=== PATIENT | male | born 1960 | race Caucasian/White ===

== ENCOUNTER 2017-08-18 01:10 | Emergency (ER) | payer SELFPAY ==
--- NOTE | 2017-08-18 02:19 | RADIOLOGY REPORT (SQ) ---
EXAM DESCRIPTION: CHEST PA/LAT CLINICAL HISTORY: flu, cough not improving COMPARISON: None. FINDINGS: Frontal and lateral views of the chest. The cardiomediastinal silhouette has normal size and contour. No consolidation, pneumothorax, or pleural effusion. Hyperinflation. Leads overlie the chest. No acute osseous abnormalities. Minimal degenerative change of the spine. Upper abdominal soft tissues are unremarkable. IMPRESSION: 1. No acute pulmonary process identified. Obstructive lung disease.
[2017-08-18] MEDS ORDERED: AZITHROMYCIN 250 MG TABLET PO ONE (02:26)
[2017-08-18] MEDS ORDERED: ACETAMINOPHEN WITH CODEINE 120-12 MG/5 ML UDCUP PO ONE (02:26)
[2017-08-18] MEDS ORDERED: IPRATROPIUM/ALBUTEROL 0.5-2.5 MG/3 ML AMPUL NEB ONE (02:27)
[2017-08-18] MEDS ORDERED: ALBUTEROL SULFATE 0.083% NEB 2.5 MG/3 ML AMPUL NEB ONE (03:12)
--- NOTE | 2017-08-18 05:08 | ER Document Report ---
ED Flu Like - General Chief Complaint: Flu Symptoms Stated Complaint: BREATHING DIFFICULTY Time Seen by Provider: 08/18/17 01:27 Mode of Arrival: Ambulatory Information source: Patient, Relative Notes: Patient is a 56-year-old male with COPD who presents to the ER today for productive cough, body aches, chills, hot flashes, wheezing 4 days. Patient was seen by his primary care provider 3 days ago, diagnosed with flu and given Tamiflu, Tessalon Perles and Promethazine DM. Patient states that since being given this medication he feels like he is only gotten worse. He denies any vomiting or diarrhea. He denies any shortness of breath. He does not have any inhalers as he has not been formally diagnosed with COPD, but does use his ' s nebulizer machine and albuterol. TRAVEL OUTSIDE OF THE [place] IN LAST 30 DAYS: No Past Medical History - General Information source: Patient - Social History Smoking Status: Current Every Day Smoker Chew tobacco use (# tins/day): No Frequency of alcohol use: Heavy Drug Abuse: None Family History: Reviewed & Not Pertinent Patient has suicidal ideation: No Patient has homicidal ideation: No Renal/ Medical History: Denies: Hx Peritoneal Dialysis Review of Systems - Review of Systems Constitutional: See HPI EENT: See HPI Cardiovascular: No symptoms reported Respiratory: See HPI Gastrointestinal: No symptoms reported Genitourinary: No symptoms reported Male Genitourinary: No symptoms reported Musculoskeletal: No symptoms reported Skin: No symptoms reported Hematologic/Lymphatic: No symptoms reported Neurological/Psychological: No symptoms reported Physical Exam - Vital signs Vitals: Temp Pulse Resp BP Pulse Ox 99.3 F 91 16 147/77 H 94 08/18/17 01:19 08/18/17 01:19 08/18/17 01:19 08/18/17 01:19 08/18/17 01:19 - Notes Notes: PHYSICAL EXAMINATION: GENERAL: Mildly ill-appearing, but in no acute distress. HEAD: Atraumatic, normocephalic. EYES: Pupils equal round and reactive to light, extraocular movements intact, sclera anicteric, conjunctiva are normal. ENT: ear canals without erythema or foreign body, TMs pearly cunningham with good bony landmarks, nares patent, oropharynx clear without exudates. Moist mucous membranes. Airway patent NECK: Normal range of motion, supple without lymphadenopathy LUNGS: Productive cough, moderate wheezes in all lobes, no rales or rhonchi. HEART: Regular rate and rhythm without murmurs ABDOMEN: Soft, no tenderness. No guarding, no rebound BACK: no vertebral tenderness, normal ROM GI/: no CVA tenderness EXTREMITIES: Normal range of motion, no pitting edema. No cyanosis. NEUROLOGICAL: Cranial nerves grossly intact. Normal sensory/motor exams. PSYCH: Normal mood, normal affect. SKIN: Warm, Dry, normal turgor, no rashes or lesions noted Course - Re-evaluation Re-evalutation: 08/18/17 05:49 Patient was given DuoNeb and albuterol breathing treatments which made him tachycardic. Tachycardia did resolve approximately 30 minutes after breathing treatments finished. Chest x-ray reports COPD but no acute pathology. Due to comorbidity of COPD I will treat with azithromycin, he did much better with Tylenol with codeine cough medication here in the emergency department. I will also place him on steroids for the wheezing and provide with albuterol for the nebulizer machine that they have at home. - Vital Signs Vital signs: Temp Pulse Resp BP Pulse Ox 99.3 F 91 20 125/71 90 L 08/18/17 01:19 08/18/17 01:19 08/18/17 05:19 08/18/17 05:19 08/18/17 05:19 Discharge - Discharge Clinical Impression: Flu-like symptoms COPD (chronic obstructive pulmonary disease) Qualifiers: COPD type: unspecified COPD Qualified Code(s): J44.9 - Chronic obstructive pulmonary disease, unspecified Condition: Stable Disposition: HOME, SELF-CARE Additional Instructions: Return immediately for any new or worsening symptoms. Follow up with primary care provider, call tomorrow to make followup appointment. Prescriptions: Acetaminophen with Codeine [Tylenol with Codeine 120 mg-12 mg/5 ml] 5 ml PO Q4HP PRN #120 ml PRN Reason: Albuterol Sulfate [Ventolin 0.083% Neb 2.5 mg/3 mL Ampul] 1 vial NEB Q4 #25 vial Azithromycin [Zithromax 250 mg Tablet] 250 mg PO ASDIR PRN #6 tablet PRN Reason: Prednisone 60 mg PO DAILY #15 tablet Referrals: ZULEMA ROWE NP [Primary Care Provider] - Follow up as needed
[2017-08-18 05:23] VITALS: BP 125/71
== END 2017-08-18 05:22 | disposition home or self-care (01) ==
LOC: ER 01:10
DX: J11.1 Influenza due to unidentified influenza virus with other respiratory manifestations (principal); J44.9 Chronic obstructive pulmonary disease, unspecified; R05 Cough; R68.83 Chills (without fever); F17.200 Nicotine dependence, unspecified, uncomplicated
CPT/HCPCS: 94640 ×2; 99283; 71046; J3490; J7620

== ENCOUNTER 2017-11-03 16:21 | Inpatient (IN) | payer OTHER ==
[2017-11-03] MEDS ORDERED: ONDANSETRON HCL INJ/PF 4 MG/2 ML SDV IV ONE (17:34)
--- NOTE | 2017-11-03 17:39 | ER Document Report ---
ED Medical Screen (RME) - General Chief Complaint: Abdominal Pain Stated Complaint: ABDOMINAL PAIN Time Seen by Provider: 11/03/17 17:26 TRAVEL OUTSIDE OF THE [place] IN LAST 30 DAYS: No - HPI Notes: 11/03/17 17:34 Patient is a 57-year-old male with a history of hypertension, COPD who presents to the ED complaining of mid abdominal pain that radiates across his abdomen 1 week. Patient states that the pain has been constant and is a 6 out of 10. He states that the pain is like a "knot." He has not noticed any radiation of his pain. Patient states that he did have one episode of vomiting previously, but has persistent nausea. He still able to tolerate p.o., but does have a decreased p.o. intake. He is still urinating normally and having normal bowel movements. Patient has never had an endoscopy or colonoscopy performed in the past. Patient does continue to smoke and he drinks about 1 case of beer per week. Denies any drug allergies. No hematochezia, melena, or hematemesis. No other concerns or complaints at this time. He was sent to the emergency department by the [facility] for a workup to further evaluate for possible ulcer , pancreatitis, or other etiology. No documented weight loss per patient, but he 'feels' as though he may be losing some weight. Denies any headache, fever, neck pain, URI, sore throat, chest pain, palpitations, syncope, cough, shortness of breath, wheeze, dyspnea, diarrhea, urinary retention, dysuria, hematuria, back pain, loss of control of bowel or bladder, numbness/tingling, saddle anesthesia, muscle paralysis/weakness, or rash. I have treated and performed a rapid initial assessment of this patient. A comprehensive ED assessment and evaluation of the patient, analysis of test results and completion of medical decision making process will be conducted by additional ED providers. PHYSICAL EXAMINATION: GENERAL: Well-appearing, well-nourished and in no acute distress. A&Ox4. Answers questions appropriately. LUNGS: Breath sounds clear to auscultation bilaterally and equal. No wheezes rales or rhonchi. HEART: Regular rate and rhythm without murmurs, rubs, gallops. ABDOMEN: Soft, nondistended abdomen. No guarding, no rebound. No masses appreciated. Normal bowel sounds present. No CVA tenderness bilaterally. ( cannot elicit thorough abd exam w/o table) Extremities: No cyanosis, clubbing, or edema b/l. NEUROLOGICAL: Normal speech, normal gait. PSYCH: Normal mood, normal affect. - Related Data Allergies/Adverse Reactions: No Known Allergies Allergy (Verified 11/03/17 16:23) Past Medical History Renal/ Medical History: Denies: Hx Peritoneal Dialysis Physical Exam - Vital signs Vitals: Temp Pulse Resp BP Pulse Ox 98.1 F 70 16 147/78 H 98 11/03/17 16:43 11/03/17 16:43 11/03/17 16:43 11/03/17 16:43 11/03/17 16:43 Course - Vital Signs Vital signs: Temp Pulse Resp BP Pulse Ox 98.1 F 70 16 147/78 H 98 11/03/17 16:43 11/03/17 16:43 11/03/17 16:43 11/03/17 16:43 11/03/17 16:43 Doctor's Discharge - Discharge Referrals: ZULEMA ROWE NP [Primary Care Provider] - Follow up as needed
--- NOTE | 2017-11-03 18:09 | RADIOLOGY REPORT (SQ) ---
EXAM DESCRIPTION: CHEST SINGLE VIEW COMPLETED DATE/TIME: 11/03/2017 6:00 pm REASON FOR STUDY: abd/epigastric pain COMPARISON: 08/18/2017 EXAM PARAMETERS: NUMBER OF VIEWS: One view. TECHNIQUE: Single frontal radiographic view of the chest acquired. RADIATION DOSE: NA LIMITATIONS: None. FINDINGS: LUNGS AND PLEURA: The lungs are hyperexpanded. There is no infiltrate or effusion. There is no mass. MEDIASTINUM AND HILAR STRUCTURES: No masses. Contour normal. HEART AND VASCULAR STRUCTURES: Heart normal in size. Normal vasculature. BONES: No acute findings. HARDWARE: None in the chest. OTHER: No other significant finding. IMPRESSION: Chronic lung changes with no acute cardiopulmonary disease. TECHNICAL DOCUMENTATION: JOB ID: [id number] [employer]- All Rights Reserved Reading location - IP/workstation name: [email or web address]
[2017-11-03 18:12] LABS: APPEARANCE,URINE CLEAR; BILIRUBIN,URINE NEGATIVE (NEGATIVE); COLOR,URINE YELLOW; GLUCOSE, URINE NEGATIVE (NEGATIVE); KETONES,URINE TRACE mg/dL (NEGATIVE); LEUKOCYTE ESTERASE,URINE NEGATIVE (NEGATIVE); NITRITE,URINE NEGATIVE (NEGATIVE); PROTEIN,URINE NEGATIVE (NEGATIVE); URINE SPECIFIC GRAVITY 1.009; UROBILINOGEN,URINE NEGATIVE mg/dL (<2.0)
[2017-11-03] MEDS: NORMAL SALINE 1000 ML 1,000 ML IV PRN ×2 (19:12→20:10)
[2017-11-03] MEDS ORDERED: MORPHINE SULFATE 10 MG/ML INJ IV ONE (19:20)
--- NOTE | 2017-11-03 19:21 | ER Document Report ---
ED GI/ - General Chief Complaint: Abdominal Pain Stated Complaint: ABDOMINAL PAIN Time Seen by Provider: 11/03/17 17:26 Notes: Patient is a 57 year old male that comes to the ED for chief complaint of pain in his upper abdomen. He states the pain is worse on the left but does seem to radiate to the right. He states pain is worse when he eats, he vomited once within the past day, he has had normal bowel movements. He denies radiation to the chest or back. He denies history of the same. He smokes, drinks alcohol daily, history a history of hypertension and COPD, denies any surgeries. He goes to the [place] [facility], was sent here from there for evaluation of possible pancreatitis based on his symptoms. He has never had an endoscopy or colonoscopy. TRAVEL OUTSIDE OF THE [place] IN LAST 30 DAYS: No - Related Data Allergies/Adverse Reactions: No Known Allergies Allergy (Verified 11/03/17 16:23) Past Medical History - General Information source: Patient - Social History Smoking Status: Current Every Day Smoker Chew tobacco use (# tins/day): No Frequency of alcohol use: Heavy Drug Abuse: None Lives with: Spouse/Significant other Family History: Reviewed & Not Pertinent Patient has suicidal ideation: No Patient has homicidal ideation: No - Past Medical History Cardiac Medical History: Reports: Hx Hypertension Pulmonary Medical History: Reports: Hx COPD Renal/ Medical History: Denies: Hx Peritoneal Dialysis Surgical Hx: Negative - Immunizations Hx Diphtheria, Pertussis, Tetanus Vaccination: Yes Review of Systems - Review of Systems Constitutional: No symptoms reported EENT: No symptoms reported Cardiovascular: No symptoms reported Respiratory: No symptoms reported Gastrointestinal: See HPI Genitourinary: No symptoms reported Male Genitourinary: No symptoms reported Musculoskeletal: No symptoms reported Skin: No symptoms reported Hematologic/Lymphatic: No symptoms reported Neurological/Psychological: No symptoms reported Physical Exam - Vital signs Vitals: Temp Pulse Resp BP Pulse Ox 98.1 F 70 16 147/78 H 98 11/03/17 16:43 11/03/17 16:43 11/03/17 16:43 11/03/17 16:43 11/03/17 16:43 - Notes Notes: GENERAL: Alert, interacts well. Patient does appear mildly uncomfortable HEAD: Normocephalic, atraumatic. EYES: Pupils equal, round, and reactive to light. Extraocular movements intact. ENT: Oral mucosa moist, tongue midline. NECK: Full range of motion. Supple. Trachea midline. LUNGS: Clear to auscultation bilaterally, no wheezes, rales, or rhonchi. No respiratory distress. HEART: Regular rate and rhythm. No murmur ABDOMEN: Tenderness in the epigastric and upper abdomen areas generally, lower abdomen is unremarkable, no distention, bowel sounds present in all 4 quadrants EXTREMITIES: Moves all 4 extremities spontaneously. No edema, normal radial and dorsalis pedis pulses bilaterally. No cyanosis. BACK: no cervical, thoracic, lumbar midline tenderness. No saddle anesthesia, normal distal neurovascular exam. NEUROLOGICAL: Alert and oriented x3. Normal speech. [cranial nerves II through XII grossly intact]. PSYCH: Normal affect, normal mood. SKIN: Warm, dry, normal turgor. No rashes or lesions noted. Remington skin. Course - Re-evaluation Re-evalutation: Patient with epigastric tenderness, history of heavy alcohol use, suspect pancreatitis. He does appear comfortable, he will be medicated. On reevaluation he was still uncomfortable and had to be medicated additionally, after this he became well-appearing and relaxed. CBC unremarkable, chemistry generally unremarkable except for hyponatremia, suspect this is related to his alcohol use. Lipase is significantly elevated at greater than 4500. Ultrasound unremarkable with no gallstone abnormalities or signs of duct abnormality. Consistent with alcohol related pancreatitis. Because of patient's recurring pain, difficulty eating, discussed with patient and significant other, will discuss with hospitalist for potential admission. Discussed with Dr. Grider, internal medicine, patient will be admitted to telemetry. Patient and significant other state understanding and agreement. - Vital Signs Vital signs: Temp Pulse Resp BP Pulse Ox 98.1 F 61 12 142/74 H 94 11/04/17 00:00 11/04/17 02:00 11/04/17 00:00 11/04/17 00:00 11/04/17 00:00 - Laboratory Result Diagrams: 11/03/17 19:13 11/03/17 19:13 Laboratory results interpreted by me: 11/03/17 11/03/17 11/03/17 17:38 19:13 19:13 MCV 98 H MCH 34.6 H Sodium 132.6 L Chloride 91 L Calcium 10.7 H ALT 20 L Total Protein 9.3 H Albumin 5.2 H Lipase 4554.4 H Urine Ketones TRACE H Discharge - Discharge Clinical Impression: Abdominal pain Qualifiers: Abdominal location: epigastric Qualified Code(s): R10.13 - Epigastric pain Vomiting Qualifiers: Vomiting type: unspecified Vomiting Intractability: non-intractable Nausea presence: with nausea Qualified Code(s): R11.2 - Nausea with vomiting, unspecified Pancreatitis Qualifiers: Chronicity: acute Pancreatitis type: alcohol induced Acute pancreatitis complication: unspecified Qualified Code(s): K85.20 - Alcohol induced acute pancreatitis without necrosis or infection Condition: Stable Disposition: ADMITTED INPATIENT Admitting Provider: Hospitalist Unit Admitted: Telemetry
[2017-11-03 19:23] LABS: ABSOLUTE BASOPHILS # (AUTO) 0.1 10^3/uL (0.0-0.2); ABSOLUTE EOSINOPHILS # (AUTO) 0.1 10^3/uL (0.0-0.6); ABSOLUTE LYMPHOCYTES (AUTO) 1.7 10^3/uL (0.5-4.7); ABSOLUTE MONOCYTES (AUTO) 0.8 10^3/uL (0.1-1.4); ABSOLUTE NEUT (AUTO) 6.7 10^3/uL (1.7-8.2); EOSINOPHILS % (AUTO) 1.3 % (0-6); HEMATOCRIT 45.9 % (37.9-51.0); HEMOGLOBIN 16.2 g/dL (13.5-17.0); LYMPHOCYTES % (AUTO) 18.5 % (13-45); MEAN CORPUSCULAR HEMOGLOBIN 34.6 pg (27.0-33.4); MEAN CORPUSCULAR HGB CONC 35.2 g/dL (32.0-36.0); MEAN CORPUSCULAR VOLUME 98 fl (80-97); MONOCYTES % (AUTO) 8.3 % (3-13); PLATELET COUNT 396 10^3/uL (150-450); RED BLOOD COUNT 4.67 10^6/uL (4.35-5.55); RED CELL DISTRIBUTION WIDTH 13.7 % (11.5-14.0); SEGMENTED NEUTROPHILS % (AUTO) 70.9 % (42-78); TOTAL CELLS COUNTED % (AUTO) 100 %; WHITE BLOOD COUNT 9.4 10^3/uL (4.0-10.5)
[2017-11-03 19:33] LABS: ALANINE AMINOTRANSFERASE 20 U/L (21-72); ALBUMIN 5.2 g/dL (3.5-5.0); ALKALINE PHOSPHATASE 81 U/L (38-126); ANION GAP 15 (5-19); ASPARTATE AMINO TRANSFERASE 22 U/L (17-59); BILIRUBIN,DIRECT 0.4 mg/dL (0.0-0.4); BLOOD UREA NITROGEN 7 mg/dL (7-20); CALCIUM 10.7 mg/dL (8.4-10.2); CARBON DIOXIDE 27 mmol/L (22-30); CHLORIDE 91 mmol/L (98-107); GLUCOSE 108 mg/dL (75-110); POTASSIUM 4.8 mmol/L (3.6-5.0); SODIUM 132.6 mmol/L (137-145); TOTAL PROTEIN 9.3 g/dL (6.3-8.2)
[2017-11-03 19:54] LABS: LIPASE 4554.4 U/L (23-300)
[2017-11-03] MEDS ORDERED: HYDROMORPHONE HCL INJ/PF 2 MG/ML AMPULE IV ONE (20:24)
--- NOTE | 2017-11-03 21:36 | RADIOLOGY REPORT (SQ) ---
EXAM DESCRIPTION: U/S ABDOMEN LIMITED W/O DOP COMPLETED DATE/TIME: 11/03/2017 9:10 pm REASON FOR STUDY: upper abd pain, pain with eating, elevated lipase COMPARISON: None. TECHNIQUE: Dynamic and static grayscale images acquired of the abdomen and recorded on PACS. Dicko anna selected color Doppler and spectral images recorded. LIMITATIONS: None. FINDINGS: PANCREAS: No masses. Visualized pancreatic duct normal caliber. LIVER: No masses. Echotexture normal. LIVER VASCULATURE: Normal directional flow of the main portal vein and hepatic veins. GALLBLADDER: No stones. Normal wall thickness. No pericholecystic fluid. ULTRASOUND-DETECTED HERNANDEZ'S SIGN: Negative. INTRAHEPATIC DUCTS AND COMMON DUCT: CBD and intrahepatic ducts normal caliber. No filling defects. INFERIOR VENA CAVA: Normal flow. AORTA: No aneurysm. RIGHT KIDNEY: Normal size. Normal echogenicity. No solid or suspicious masses. No hydronephrosis. No calcifications. PERITONEAL AND RIGHT PLEURAL SPACE: No ascites or effusions. OTHER: No other significant findings. IMPRESSION: No acute inflammatory changes. TECHNICAL DOCUMENTATION: JOB ID: [id number] [place]-72 2010 [employer]- All Rights Reserved Reading location - IP/workstation name: [email or web address]
[2017-11-03] MEDS ORDERED: THIAMINE HCL 100 MG in NORMAL SALINE 50 ML IV ONE (21:44)
[2017-11-03] MEDS ORDERED: DIAZEPAM INJ 10 MG/2 ML DISP.SYRIN IV SCH (21:45)
[2017-11-03] MEDS ORDERED: ACETAMINOPHEN 325 MG TABLET PO PRN (21:45)
[2017-11-03] MEDS ORDERED: ACETAMINOPHEN 650 MG SUPP.RECT PR PRN (21:45)
[2017-11-03] MEDS ORDERED: MAG HYDROX/AL HYDROX/SIMETH SUSP 30 ML UDCUP PO PRN (21:45)
[2017-11-03] MEDS ORDERED: IPRATROPIUM/ALBUTEROL 0.5-2.5 MG/3 ML AMPUL NEB PRN (21:45)
[2017-11-03] MEDS ORDERED: HYDRALAZINE HCL INJ/PF 20 MG/1 ML SDV IV PRN (21:48)
[2017-11-03] MEDS ORDERED: FOLIC ACID INJ 5 MG/1 ML 10 ML VIAL IV PRN (22:07)
[2017-11-03] MEDS ORDERED: THIAMINE HCL INJ 200 MG/2 ML VIAL IV PRN (22:07)
[2017-11-03 22:48] LABS: URINE AMPHETAMINES SCREEN NEGATIVE; URINE BARBITURATES SCREEN NEGATIVE; URINE BENZODIAZEPINES SCREEN NEGATIVE; URINE COCAINE SCREEN NEGATIVE; URINE MARIJUANA (THC) SCREEN UNCONFIRMED POSITIVE; URINE METHADONE SCREEN NEGATIVE; URINE PHENCYCLIDINE SCREEN NEGATIVE
[2017-11-03] MEDS: NORMAL SALINE 1000 ML 1,000 ML IV SCH (22:48)
[2017-11-03] MEDS: HEPARIN SOD (PORCINE) 5,000 UNIT/ML 1 ML SYRINGE SUBCUT SCH (22:48)
[2017-11-04] MEDS: KETOROLAC TROMETHAMINE INJ/PF 30 MG/1 ML SDV IV PRN ×3 (04:28→18:50)
[2017-11-04] MEDS: LORAZEPAM INJ 2 MG/1 ML VIAL IV PRN (04:29)
--- NOTE | 2017-11-04 04:49 | PDOC H&P ---
History of Present Illness Admission Date/PCP: 11/03/17 21:55 Patient complains of: Abdominal pain and nausea History of Present Illness: CLAUDIO LEOS is a 57 year old male with history of hypertension, COPD, Tobacco and alcohol dependence. Patient presents with 3 days of worsening epigastric pain. Exacerbated by p.o. intake and alcohol prompting him to seek evaluation emergency room where he is found to have a lipase of 4500. He receives symptomatic management, IV fluids and referred to the hospitalist for admission. Patient denies new medication, previous episode or exceptional alcohol binging. Past Medical History Cardiac Medical History: Reports: Hypertension Pulmonary Medical History: Reports: Chronic Obstructive Pulmonary Disease (COPD) Social History Information Source: Patient Lives with: Spouse/Significant other Smoking Status: Current Every Day Smoker Cigarettes Packs Per Day: 1 Number of Years Smokin Last Time Smoked: 11/03/17 Frequency of Alcohol Use: Heavy Hx Recreational Drug Use: No Drugs: Marijuana Hx Prescription Drug Abuse: No - Advance Directive Resuscitation Status: Full Code Family History Family History: COPD Parental Family History Reviewed: Yes Children Family History Reviewed: Yes Sibling(s) Family History Reviewed.: Yes Medication/Allergy Home Medications: Acetaminophen with Codeine [Tylenol with Codeine 120 mg-12 mg/5 ml] 5 ml PO Q4HP PRN #120 ml 08/18/17 Albuterol Sulfate [Ventolin 0.083% Neb 2.5 mg/3 mL Ampul] 1 vial NEB Q4 #25 vial 08/18/17 Azithromycin [Zithromax 250 mg Tablet] 250 mg PO ASDIR PRN #6 tablet 08/18/17 Prednisone 60 mg PO DAILY #15 tablet 08/18/17 Allergies/Adverse Reactions: No Known Allergies Allergy (Verified 11/03/17 16:23) Review of Systems Constitutional: ABSENT: chills, fever(s), headache(s), weight gain, weight loss Eyes: ABSENT: visual disturbances Ears: ABSENT: hearing changes Cardiovascular: ABSENT: chest pain, dyspnea on exertion, edema, orthropnea, palpitations Respiratory: ABSENT: cough, hemoptysis Gastrointestinal: ABSENT: abdominal pain, constipation, diarrhea, hematemesis, hematochezia, nausea, vomiting Genitourinary: ABSENT: dysuria, hematuria Musculoskeletal: ABSENT: joint swelling Integumentary: ABSENT: rash, wounds Neurological: ABSENT: abnormal gait, abnormal speech, confusion, dizziness, focal weakness, syncope Psychiatric: ABSENT: anxiety, depression, homidical ideation, suicidal ideation Endocrine: ABSENT: cold intolerance, heat intolerance, polydipsia, polyuria Hematologic/Lymphatic: ABSENT: easy bleeding, easy bruising Physical Exam Vital Signs: Temp Pulse Resp BP Pulse Ox 98.1 F 61 12 142/74 H 94 11/04/17 00:00 11/04/17 02:00 11/04/17 00:00 11/04/17 00:00 11/04/17 00:00 Intake & Output 11/02/17 11/03/17 11/04/17 11:59 11:59 11:59 Weight 58.1 kg General appearance: PRESENT: cooperative, mild distress, well-developed, well- nourished Head exam: PRESENT: atraumatic, normocephalic Eye exam: PRESENT: conjunctiva pink, EOMI, PERRLA. ABSENT: scleral icterus Ear exam: PRESENT: normal external ear exam Mouth exam: PRESENT: moist, tongue midline Neck exam: ABSENT: carotid bruit, JVD, lymphadenopathy, thyromegaly Respiratory exam: PRESENT: clear to auscultation rosa. ABSENT: rales, rhonchi, wheezes Cardiovascular exam: PRESENT: RRR. ABSENT: diastolic murmur, rubs, systolic murmur Pulses: PRESENT: normal dorsalis pedis pul Vascular exam: PRESENT: normal capillary refill GI/Abdominal exam: PRESENT: hyperactive bowel sounds, normal bowel sounds, soft , tenderness. ABSENT: distended, guarding, mass, organolmegaly, rebound Rectal exam: PRESENT: deferred Extremities exam: PRESENT: full ROM. ABSENT: calf tenderness, clubbing, pedal edema Neurological exam: PRESENT: alert, awake, oriented to person, oriented to place , oriented to time, oriented to situation, CN II-XII grossly intact. ABSENT: motor sensory deficit Psychiatric exam: PRESENT: appropriate affect, normal mood. ABSENT: homicidal ideation, suicidal ideation Skin exam: PRESENT: dry, intact, warm. ABSENT: cyanosis, rash Results Impressions: Chest X-Ray 11/03/17 17:33 IMPRESSION: Chronic lung changes with no acute cardiopulmonary disease. Abdomen Ultrasound 11/03/17 20:20 IMPRESSION: No acute inflammatory changes. Assessment & Plan - Diagnosis (1) Pancreatitis Qualifiers: Chronicity: acute Pancreatitis type: alcohol induced Acute pancreatitis complication: unspecified Qualified Code(s): K85.20 - Alcohol induced acute pancreatitis without necrosis or infection Is this a current diagnosis for this admission?: Yes Plan: Acute alcohol-related pancreatitis, bowel rest, symptomatic management, education (2) Tobacco abuse Is this a current diagnosis for this admission?: Yes Plan: Tobacco Dependence patient received tobacco cessation counseling and offered nicotine replacement options (3) Alcohol dependence Is this a current diagnosis for this admission?: Yes Plan: Denies history of DTs, thiamine and folate, benzodiazepine ordered, education (4) Abdominal pain Qualifiers: Abdominal location: epigastric Qualified Code(s): R10.13 - Epigastric pain Is this a current diagnosis for this admission?: Yes Plan: Symptomatic management secondary to #1 (5) Vomiting Qualifiers: Vomiting type: unspecified Vomiting Intractability: non-intractable Nausea presence: with nausea Qualified Code(s): R11.2 - Nausea with vomiting, unspecified Is this a current diagnosis for this admission?: Yes Plan: Symptomatic management secondary to #1 - Time Time Spent: 30 to 50 Minutes - Inpatient Certification Medical Necessity: Need Close Monitoring Due to Risk of Patient Decompensation
[2017-11-04 05:49] LABS: ALANINE AMINOTRANSFERASE 16 U/L (21-72); ALKALINE PHOSPHATASE 45 U/L (38-126); ANION GAP 7 (5-19); ASPARTATE AMINO TRANSFERASE 16 U/L (17-59); BILIRUBIN,DIRECT 0.3 mg/dL (0.0-0.4); BILIRUBIN,TOTAL 0.7 mg/dL (0.2-1.3); BLOOD UREA NITROGEN 7 mg/dL (7-20); CALCIUM 8.6 mg/dL (8.4-10.2); CARBON DIOXIDE 22 mmol/L (22-30); CHLORIDE 106 mmol/L (98-107); CHOLESTEROL 108.28 mg/dL (0-200); GLUCOSE 86 mg/dL (75-110); POTASSIUM 4.3 mmol/L (3.6-5.0); SODIUM 135.3 mmol/L (137-145); TOTAL PROTEIN 5.9 g/dL (6.3-8.2); TRIGLYCERIDES 65 mg/dL (<150)
[2017-11-04 05:59] LABS: DIRECT LDL 45 mg/dL (<100)
[2017-11-04] MEDS: NORMAL SALINE 1000 ML 1,000 ML IV SCH ×2 (06:03→10:54)
[2017-11-04] MEDS: HEPARIN SOD (PORCINE) 5,000 UNIT/ML 1 ML SYRINGE SUBCUT SCH ×3 (06:03→21:51)
[2017-11-04 06:43] LABS: ABSOLUTE BASOPHILS # (AUTO) 0.1 10^3/uL (0.0-0.2); ABSOLUTE EOSINOPHILS # (AUTO) 0.1 10^3/uL (0.0-0.6); ABSOLUTE LYMPHOCYTES (AUTO) 1.3 10^3/uL (0.5-4.7); ABSOLUTE MONOCYTES (AUTO) 0.6 10^3/uL (0.1-1.4); ABSOLUTE NEUT (AUTO) 4.1 10^3/uL (1.7-8.2); BASOPHILS % (AUTO) 0.9 % (0-2); HEMATOCRIT 35.1 % (37.9-51.0); LYMPHOCYTES % (AUTO) 21.4 % (13-45); MEAN CORPUSCULAR HEMOGLOBIN 34.4 pg (27.0-33.4); MEAN CORPUSCULAR HGB CONC 35.1 g/dL (32.0-36.0); MEAN CORPUSCULAR VOLUME 98 fl (80-97); MONOCYTES % (AUTO) 9.9 % (3-13); PLATELET COUNT 245 10^3/uL (150-450); RED BLOOD COUNT 3.58 10^6/uL (4.35-5.55); RED CELL DISTRIBUTION WIDTH 13.7 % (11.5-14.0); SEGMENTED NEUTROPHILS % (AUTO) 65.8 % (42-78); TOTAL CELLS COUNTED % (AUTO) 100 %; WHITE BLOOD COUNT 6.2 10^3/uL (4.0-10.5)
[2017-11-04 06:51] LABS: HEMOGLOBIN 12.3 g/dL (13.5-17.0)
[2017-11-04] MEDS: DIAZEPAM INJ 10 MG/2 ML DISP.SYRIN IV SCH ×2 (09:34→21:51)
[2017-11-04] MEDS: THIAMINE HCL 100 MG, FOLIC ACID 1 MG in NORMAL SALINE 250 ML IV SCH (09:34)
--- NOTE | 2017-11-04 12:45 | PDOC PROGRESS REPORT ---
Subjective Progress Note for:: 11/04/17 Subjective:: The patient is a 57-year-old male who was admitted overnight with alcoholic pancreatitis. Today when I saw him he states that he is feeling a little better. He states he still has some pain but it is greatly improved since the time of admission. He denies fever or shaking chills. No chest pain , shortness of breath. He does have a little bit of a cough which is chronic for him. He has had no nausea or vomiting. His abdominal pain is improving. He has not had a bowel movement. He has no urinary complaints. Reason For Visit: ETOH WITHDRAW,ACUTE PANCREATITIS Physical Exam Vital Signs: Temp Pulse Resp BP Pulse Ox 98.1 F 74 16 125/78 95 11/04/17 07:57 11/04/17 08:46 11/04/17 08:46 11/04/17 07:57 11/04/17 08:46 Intake & Output 11/03/17 11/04/17 11/05/17 06:59 06:59 06:59 Intake Total 1250 Balance 1250 Weight 58.1 kg General appearance: PRESENT: disheveled, thin, other - Quite ill-appearing Head exam: PRESENT: atraumatic, normocephalic Eye exam: PRESENT: conjunctiva pink, EOMI, PERRLA. ABSENT: scleral icterus Mouth exam: PRESENT: moist, tongue midline Neck exam: ABSENT: carotid bruit, JVD, lymphadenopathy, thyromegaly Respiratory exam: PRESENT: rhonchi. ABSENT: rales, wheezes Cardiovascular exam: PRESENT: RRR. ABSENT: diastolic murmur, rubs, systolic murmur GI/Abdominal exam: PRESENT: normal bowel sounds, soft, other - His abdomen is really nontender to palpation.. ABSENT: distended, guarding, mass, organolmegaly, rebound, tenderness Rectal exam: PRESENT: deferred Extremities exam: PRESENT: full ROM. ABSENT: calf tenderness, clubbing, pedal edema Neurological exam: PRESENT: alert, awake, oriented to person, oriented to place , oriented to time, oriented to situation, CN II-XII grossly intact, other - He has a slight tremor. ABSENT: motor sensory deficit Psychiatric exam: PRESENT: appropriate affect, normal mood. ABSENT: homicidal ideation, suicidal ideation Skin exam: PRESENT: dry, intact, warm. ABSENT: cyanosis, rash Results Laboratory Results: 11/04/17 05:08 11/04/17 05:08 11/04/17 11/04/17 11/04/17 05:08 05:08 05:08 WBC 6.2 RBC 3.58 L Hgb 12.3 L D Hct 35.1 L MCV 98 H MCH 34.4 H MCHC 35.1 RDW 13.7 Plt Count 245 Seg Neutrophils % 65.8 Lymphocytes % 21.4 Monocytes % 9.9 Eosinophils % 2.0 Basophils % 0.9 Absolute Neutrophils 4.1 Absolute Lymphocytes 1.3 Absolute Monocytes 0.6 Absolute Eosinophils 0.1 Absolute Basophils 0.1 Sodium 135.3 L Potassium 4.3 Chloride 106 Carbon Dioxide 22 Anion Gap 7 BUN 7 Creatinine 0.50 L Est GFR ( Amer) > 60 Est GFR (Non-Af Amer) > 60 Glucose 86 Calcium 8.6 Phosphorus 3.7 Total Bilirubin 0.7 AST 16 L ALT 16 L Alkaline Phosphatase 45 Total Protein 5.9 L Albumin 3.0 L Triglycerides 65 Cholesterol 108.28 LDL Cholesterol Direct 45 VLDL Cholesterol 13.0 HDL Cholesterol 54 Impressions: Chest X-Ray 11/03/17 17:33 IMPRESSION: Chronic lung changes with no acute cardiopulmonary disease. Abdomen Ultrasound 11/03/17 20:20 IMPRESSION: No acute inflammatory changes. Assessment & Plan - Diagnosis (1) Acute pancreatitis Is this a current diagnosis for this admission?: Yes Plan: Patient will continue IV fluids. I am going to start him on clear liquids this afternoon and will see how he does. (2) Precipitous drop in hematocrit Is this a current diagnosis for this admission?: Yes Plan: He has had a precipitous drop in hemoglobin likely due to hemodilution. He will have a CBC drawn in the morning. (3) Alcohol dependence, continuous Is this a current diagnosis for this admission?: Yes Plan: I have discussed the patient with the patient the fact that he would likely benefit from not drinking in light of his pancreatitis (4) Alcohol withdrawal Is this a current diagnosis for this admission?: Yes Plan: Continue scheduled Ativan (5) COPD (chronic obstructive pulmonary disease) Is this a current diagnosis for this admission?: Yes Plan: No evidence of acute exacerbation. (6) Hypertension Is this a current diagnosis for this admission?: Yes Plan: Stable (7) Hyponatremia Is this a current diagnosis for this admission?: Yes Plan: Improving. Likely due to his heavy alcohol use (8) Protein calorie malnutrition Is this a current diagnosis for this admission?: Yes Plan: He will continue thiamine. I am going to start him on folic acid and a multivitamin. He is significantly underweight with a BMI of 17. (9) Hypercalcemia Is this a current diagnosis for this admission?: Yes Plan: Likely secondary to dehydration. Resolved (10) Tobacco dependence Is this a current diagnosis for this admission?: Yes Plan: Certainly it would be in his best interest to quit smoking (11) Full code status Is this a current diagnosis for this admission?: Yes - Time Time Spent with patient: 25-34 minutes - Inpatient Certification Medical Necessity: Need For IV Fluids - Inpatient hospitalization remains necessary. The patient has acute pancreatitis. I am going to start him on clear liquids today. He will continue IV fluids for now. He is also going through alcohol withdrawal., Other
[2017-11-04] MEDS ORDERED: FOLIC ACID 1 MG TABLET PO ONE (13:30)
[2017-11-05] MEDS: KETOROLAC TROMETHAMINE INJ/PF 30 MG/1 ML SDV IV PRN ×3 (00:24→06:00)
[2017-11-05] MEDS: LORAZEPAM INJ 2 MG/1 ML VIAL IV PRN ×4 (01:36→22:03)
[2017-11-05] MEDS ORDERED: KETOROLAC TROMETHAMINE INJ/PF 30 MG/1 ML SDV IV ONE (02:00)
[2017-11-05 05:23] LABS: ABSOLUTE BASOPHILS # (AUTO) 0.1 10^3/uL (0.0-0.2); ABSOLUTE EOSINOPHILS # (AUTO) 0.1 10^3/uL (0.0-0.6); ABSOLUTE LYMPHOCYTES (AUTO) 1.3 10^3/uL (0.5-4.7); ABSOLUTE MONOCYTES (AUTO) 0.8 10^3/uL (0.1-1.4); ABSOLUTE NEUT (AUTO) 6.9 10^3/uL (1.7-8.2); EOSINOPHILS % (AUTO) 0.9 % (0-6); HEMATOCRIT 34.6 % (37.9-51.0); LYMPHOCYTES % (AUTO) 13.9 % (13-45); MEAN CORPUSCULAR HEMOGLOBIN 34.1 pg (27.0-33.4); MEAN CORPUSCULAR HGB CONC 34.7 g/dL (32.0-36.0); MEAN CORPUSCULAR VOLUME 98 fl (80-97); MONOCYTES % (AUTO) 8.3 % (3-13); PLATELET COUNT 279 10^3/uL (150-450); RED BLOOD COUNT 3.52 10^6/uL (4.35-5.55); RED CELL DISTRIBUTION WIDTH 13.6 % (11.5-14.0); SEGMENTED NEUTROPHILS % (AUTO) 75.9 % (42-78); TOTAL CELLS COUNTED % (AUTO) 100 %; WHITE BLOOD COUNT 9.1 10^3/uL (4.0-10.5)
[2017-11-05 06:00] LABS: ALANINE AMINOTRANSFERASE 17 U/L (21-72); ALBUMIN 3.3 g/dL (3.5-5.0); ALKALINE PHOSPHATASE 51 U/L (38-126); ANION GAP 11 (5-19); ASPARTATE AMINO TRANSFERASE 17 U/L (17-59); BILIRUBIN,DIRECT 0.4 mg/dL (0.0-0.4); BILIRUBIN,TOTAL 0.5 mg/dL (0.2-1.3); BLOOD UREA NITROGEN 10 mg/dL (7-20); CALCIUM 8.9 mg/dL (8.4-10.2); CARBON DIOXIDE 20 mmol/L (22-30); CHLORIDE 104 mmol/L (98-107); GLUCOSE 90 mg/dL (75-110); LIPASE 1004.5 U/L (23-300); POTASSIUM 4.8 mmol/L (3.6-5.0); SODIUM 135.4 mmol/L (137-145); TOTAL PROTEIN 6.2 g/dL (6.3-8.2)
[2017-11-05] MEDS: HEPARIN SOD (PORCINE) 5,000 UNIT/ML 1 ML SYRINGE SUBCUT SCH ×3 (06:01→22:02)
[2017-11-05] MEDS: THIAMINE HCL 100 MG, FOLIC ACID 1 MG in NORMAL SALINE 250 ML IV SCH (09:36)
[2017-11-05] MEDS: MULTIVITAMIN TABLET PO SCH (09:37)
[2017-11-05] MEDS: FOLIC ACID 1 MG TABLET PO SCH (09:37)
[2017-11-05] MEDS: DIAZEPAM INJ 10 MG/2 ML DISP.SYRIN IV SCH ×2 (09:37→22:03)
[2017-11-05] MEDS ORDERED: LORAZEPAM INJ 2 MG/1 ML VIAL IV ONE (17:13)
[2017-11-05] MEDS ORDERED: LORAZEPAM INJ 2 MG/1 ML VIAL IV PRN (17:14)
--- NOTE | 2017-11-05 17:24 | PDOC PROGRESS REPORT ---
Subjective Progress Note for:: 11/05/17 Subjective:: The patient is a 57-year-old male who was admitted overnight with alcoholic pancreatitis. Yesterday he was doing fairly well and his pain was improving and I started him on clear liquids. Today the patient has begun going through some significant alcohol withdrawal. We are escalating his benzodiazepines this afternoon. I spoke at length to the patient's at the bedside. She is unsure whether he will quit drinking when he gets out of the hospital. However she has been wanting him to quit drinking for quite some time. She states that today he has been quite confused and hallucinating. He has become more tremulous and agitated. Spent quite some time discussing the plan of care with her and for now she would like for him to remain in the hospital and go through alcohol withdrawal in the hopes that he may decide to quit drinking in light of his new diagnosis of pancreatitis. Review of systems cannot be obtained from the patient today due to his ongoing confusion. Reason For Visit: PANCREATITIS,ETOH WITHDRAWL Physical Exam Vital Signs: Temp Pulse Resp BP Pulse Ox 97.3 F 65 16 175/72 H 100 11/05/17 11:16 11/05/17 14:00 11/05/17 11:50 11/05/17 11:16 11/05/17 11:16 Intake & Output 11/04/17 11/05/17 11/06/17 06:59 06:59 06:59 Intake Total 1250 2200 892 Balance 1250 2200 892 Weight 58.1 kg 60.8 kg General appearance: PRESENT: disheveled, thin, other - Chronically ill- appearing gentleman. He is anxious, tremulous and agitated at the time of my visit Mouth exam: PRESENT: moist, tongue midline Respiratory exam: PRESENT: clear to auscultation rosa. ABSENT: rales, rhonchi, wheezes Cardiovascular exam: PRESENT: RRR. ABSENT: diastolic murmur, rubs, systolic murmur GI/Abdominal exam: PRESENT: normal bowel sounds, soft. ABSENT: distended, guarding, mass, organolmegaly, rebound, tenderness Rectal exam: PRESENT: deferred Extremities exam: PRESENT: full ROM. ABSENT: calf tenderness, clubbing, pedal edema Neurological exam: PRESENT: alert, awake, oriented to person, oriented to place. ABSENT: oriented to time, oriented to situation Psychiatric exam: PRESENT: agitated, anxious, other - Quite tremulous Skin exam: PRESENT: dry, intact, warm. ABSENT: cyanosis, rash Results Laboratory Results: 11/05/17 04:17 11/05/17 04:17 11/05/17 11/05/17 04:17 04:17 WBC 9.1 RBC 3.52 L Hgb 12.0 L Hct 34.6 L MCV 98 H MCH 34.1 H MCHC 34.7 RDW 13.6 Plt Count 279 Seg Neutrophils % 75.9 Lymphocytes % 13.9 Monocytes % 8.3 Eosinophils % 0.9 Basophils % 1.0 Absolute Neutrophils 6.9 Absolute Lymphocytes 1.3 Absolute Monocytes 0.8 Absolute Eosinophils 0.1 Absolute Basophils 0.1 Sodium 135.4 L Potassium 4.8 Chloride 104 Carbon Dioxide 20 L Anion Gap 11 BUN 10 Creatinine 0.51 L Est GFR ( Amer) > 60 Est GFR (Non-Af Amer) > 60 Glucose 90 Calcium 8.9 Magnesium 1.7 Total Bilirubin 0.5 AST 17 ALT 17 L Alkaline Phosphatase 51 Total Protein 6.2 L Albumin 3.3 L Lipase 1004.5 H Impressions: Chest X-Ray 11/03/17 17:33 IMPRESSION: Chronic lung changes with no acute cardiopulmonary disease. Abdomen Ultrasound 11/03/17 20:20 IMPRESSION: No acute inflammatory changes. Assessment & Plan - Diagnosis (1) Acute pancreatitis Is this a current diagnosis for this admission?: Yes Plan: For now he will continue clear liquids. The patient's states that he developed some abdominal pain after he drank some this morning. Continue IV fluids. (2) Precipitous drop in hematocrit Is this a current diagnosis for this admission?: Yes Plan: Secondary to hemodilution. Stable. (3) Alcohol withdrawal Is this a current diagnosis for this admission?: Yes Plan: Continue scheduled Ativan. I am adding clonidine to his regimen as his blood pressure is somewhat high. He has as needed Ativan available as well. (4) Alcohol dependence, continuous Is this a current diagnosis for this admission?: Yes Plan: At this point it is unclear whether the patient wants to quit drinking. However in light of his pancreatitis and the fact that he really is not tolerating p.o. intake he needs to stay here in the hospital and will be detoxed. (5) COPD (chronic obstructive pulmonary disease) Is this a current diagnosis for this admission?: Yes Plan: No evidence of acute exacerbation. (6) Hypertension Is this a current diagnosis for this admission?: Yes Plan: I am adding clonidine to his regimen today. (7) Hyponatremia Is this a current diagnosis for this admission?: Yes Plan: Improving (8) Protein calorie malnutrition Is this a current diagnosis for this admission?: Yes Plan: The patient has a BMI of 18. He is profoundly malnourished. He is on thiamine and folic acid. He also has been started on multivitamin. (9) Hypercalcemia Is this a current diagnosis for this admission?: Yes Plan: Resolved. Secondary to dehydration. (10) Tobacco dependence Is this a current diagnosis for this admission?: Yes Plan: Certainly it would be in his best interest to quit smoking. Will add a nicotine patch. (11) Full code status Is this a current diagnosis for this admission?: Yes - Time Time Spent with patient: 25-34 minutes - Inpatient Certification Medical Necessity: Need For IV Fluids, Other - Inpatient hospitalization remains necessary. The patient requiring parenteral fluids. He is currently going through alcohol withdrawal and is requiring IV Ativan. Timing of disposition will be determined by his clinical course
[2017-11-05] MEDS: CLONIDINE HCL 0.1 MG TABLET PO SCH (19:44)
[2017-11-05] MEDS: NICOTINE 21 MG/24 HR PATCH.TD24 TD SCH (19:44)
[2017-11-06] MEDS: CLONIDINE HCL 0.1 MG TABLET PO SCH ×3 (02:53→17:56)
[2017-11-06] MEDS: HEPARIN SOD (PORCINE) 5,000 UNIT/ML 1 ML SYRINGE SUBCUT SCH ×3 (05:46→22:03)
[2017-11-06] MEDS: DIAZEPAM INJ 10 MG/2 ML DISP.SYRIN IV SCH ×2 (09:59→22:03)
[2017-11-06] MEDS: MULTIVITAMIN TABLET PO SCH (10:39)
[2017-11-06] MEDS: FOLIC ACID 1 MG TABLET PO SCH (10:39)
--- NOTE | 2017-11-06 12:03 | PDOC PROGRESS REPORT ---
Subjective Progress Note for:: 11/06/17 Subjective:: Patient is seen resting in bed. He is awake, alert and oriented 3. He is somewhat slow to respond to questions. He is not tremulous at the present time. His is at the bedside. He denies any chest pain, shortness of breath or dyspnea. He denies any nausea, abdominal pain or diarrhea. He states he is hungry. He denies any significant arthralgias or myalgias. Remaining review of systems are negative. Reason For Visit: PANCREATITIS,ETOH WITHDRAWL Physical Exam Vital Signs: Temp Pulse Resp BP Pulse Ox 97.4 F 86 16 139/72 H 100 11/06/17 07:31 11/06/17 09:18 11/06/17 09:18 11/06/17 07:31 11/06/17 09:18 Intake & Output 11/05/17 11/06/17 11/07/17 06:59 06:59 06:59 Intake Total 2200 3614 Balance 2200 3614 Weight 60.8 kg 61.5 kg General appearance: PRESENT: no acute distress, disheveled, thin, well-developed Head exam: PRESENT: atraumatic, normocephalic Eye exam: PRESENT: conjunctiva pink, EOMI, PERRLA. ABSENT: scleral icterus Ear exam: PRESENT: normal external ear exam Mouth exam: PRESENT: moist, tongue midline Teeth exam: PRESENT: poor dentation Neck exam: ABSENT: carotid bruit, JVD, lymphadenopathy, thyromegaly Respiratory exam: PRESENT: clear to auscultation rosa. ABSENT: rales, rhonchi, wheezes Cardiovascular exam: PRESENT: RRR. ABSENT: diastolic murmur, rubs, systolic murmur Pulses: PRESENT: normal dorsalis pedis pul Vascular exam: PRESENT: normal capillary refill GI/Abdominal exam: PRESENT: normal bowel sounds, soft. ABSENT: distended, guarding, mass, organolmegaly, rebound, tenderness Rectal exam: PRESENT: deferred Musculoskeletal exam: PRESENT: ambulatory, full ROM, normal inspection Neurological exam: PRESENT: alert, awake, oriented to person, oriented to place , oriented to time, oriented to situation, CN II-XII grossly intact. ABSENT: motor sensory deficit Psychiatric exam: PRESENT: flat affect Skin exam: PRESENT: dry, intact, warm. ABSENT: cyanosis, rash Results Laboratory Results: 11/05/17 04:17 11/05/17 04:17 Impressions: Chest X-Ray 11/03/17 17:33 IMPRESSION: Chronic lung changes with no acute cardiopulmonary disease. Abdomen Ultrasound 11/03/17 20:20 IMPRESSION: No acute inflammatory changes. Assessment & Plan - Diagnosis (1) Acute pancreatitis Qualifiers: Pancreatitis type: alcohol induced Is this a current diagnosis for this admission?: Yes Plan: Lipase down to 1000. He has not had IV fluids since last night. He has had no nausea or abdominal pain. (2) Alcohol dependence, continuous Is this a current diagnosis for this admission?: Yes Plan: Continue Valium scheduled doses. Continue folic acid and thiamine and multivitamin. He is far less tremulous today. (3) Alcohol withdrawal Is this a current diagnosis for this admission?: Yes (4) COPD (chronic obstructive pulmonary disease) Is this a current diagnosis for this admission?: Yes (5) Hypertension Qualifiers: Hypertension type: essential hypertension Qualified Code(s): I10 - Essential (primary) hypertension Is this a current diagnosis for this admission?: Yes Plan: Presently he is normotensive and no longer tachycardic. Continue current medications (6) Hyponatremia Is this a current diagnosis for this admission?: Yes (7) Protein-calorie malnutrition, moderate Is this a current diagnosis for this admission?: Yes Plan: We will change diet to regular continue nutritional supplements. - Time Time Spent with patient: 25-34 minutes Total Critical Time (Minutes): 20 Medications reviewed and adjusted accordingly: Yes Anticipated discharge: Acute Rehab
[2017-11-06] MEDS: LORAZEPAM INJ 2 MG/1 ML VIAL IV PRN (17:56)
[2017-11-06] MEDS: NICOTINE 21 MG/24 HR PATCH.TD24 TD SCH (17:56)
[2017-11-07] MEDS: CLONIDINE HCL 0.1 MG TABLET PO SCH ×2 (04:04→10:38)
[2017-11-07 05:27] LABS: ANION GAP 10 (5-19); BLOOD UREA NITROGEN 5 mg/dL (7-20); CALCIUM 8.6 mg/dL (8.4-10.2); CARBON DIOXIDE 24 mmol/L (22-30); CHLORIDE 99 mmol/L (98-107); GLUCOSE 93 mg/dL (75-110); POTASSIUM 3.5 mmol/L (3.6-5.0); SODIUM 132.8 mmol/L (137-145)
[2017-11-07] MEDS: HEPARIN SOD (PORCINE) 5,000 UNIT/ML 1 ML SYRINGE SUBCUT SCH (05:38)
[2017-11-07] MEDS: MULTIVITAMIN TABLET PO SCH (10:38)
[2017-11-07] MEDS: DIAZEPAM INJ 10 MG/2 ML DISP.SYRIN IV SCH (10:38)
[2017-11-07] MEDS: FOLIC ACID 1 MG TABLET PO SCH (10:38)
[2017-11-07] MEDS ORDERED: POTASSIUM CHLORIDE 10 MEQ TABLET.SA PO ONE (10:40)
--- NOTE | 2017-11-07 11:36 | PDOC DISCHARGE SUMMARY ---
General - Admit/Disc Date/PCP Admission Date/Primary Care Provider: 11/03/17 21:55 Discharge Date: 11/07/17 - Discharge Diagnosis (1) Acute pancreatitis Is this a current diagnosis for this admission?: Yes (2) Alcohol dependence, continuous Is this a current diagnosis for this admission?: Yes (3) Alcohol withdrawal Is this a current diagnosis for this admission?: Yes (4) COPD (chronic obstructive pulmonary disease) Is this a current diagnosis for this admission?: Yes (5) Hypertension Is this a current diagnosis for this admission?: Yes (6) Hyponatremia Is this a current diagnosis for this admission?: Yes (7) Protein-calorie malnutrition, moderate Is this a current diagnosis for this admission?: Yes - Additional Information Resuscitation Status: Full Code Home Medications: Acetaminophen with Codeine [Tylenol with Codeine 120 mg-12 mg/5 mL] 5 ml PO Q4HP PRN #120 ml 08/18/17 Albuterol Sulfate [Ventolin 0.083% Neb 2.5 mg/3 mL Ampul] 1 vial NEB Q4 #25 vial 08/18/17 Acetaminophen [Tylenol 325 mg Tablet] 650 mg PO Q4HP PRN tablet 11/07/17 History of Present Illness Patient complains of: Epigastric pain History of Present Illness: CLAUDIO LEOS is a 57 year old male Hospital Course Hospital Course: Patient was admitted to the hospitalist service on telemetry. He was kept n.p.o. and given IV hydration. Was also given IV pain medicine and scheduled IV Ativan to prevent alcohol withdrawals. Despite the scheduled Ativan, patient did start hallucinating and having tremors on hospital day #2. His Ativan dose was increased as well as as needed Ativan added. Over the next 24 hours the symptoms subsided. He refused to have any further IV fluids on day 3. His lipase was down to thousand. We advanced his diet to regular. Today his lipase is 300, he is tolerating a regular diet and he feels ready for discharge. We discussed with patient and his recommendations for inpatient rehab or at the very least alcohol outpatient counseling. Patient states he would like to pursue outpatient counseling. His supports his decision. Physical Exam Vital Signs: Temp Pulse Resp BP Pulse Ox 98.2 F 82 16 131/75 H 92 11/07/17 07:35 11/07/17 07:35 11/07/17 07:35 11/07/17 07:35 11/07/17 07:35 Intake & Output 11/06/17 11/07/17 11/08/17 06:59 06:59 06:59 Intake Total 3614 4 Balance 3612083 Weight 61.5 kg 61.5 kg General appearance: PRESENT: no acute distress, thin, well-developed Head exam: PRESENT: atraumatic, normocephalic Eye exam: PRESENT: conjunctiva pink Ear exam: PRESENT: normal external ear exam Mouth exam: PRESENT: moist, tongue midline Neck exam: ABSENT: carotid bruit, JVD, lymphadenopathy, thyromegaly Respiratory exam: PRESENT: clear to auscultation rosa. ABSENT: rales, rhonchi, wheezes Cardiovascular exam: PRESENT: RRR. ABSENT: diastolic murmur, rubs, systolic murmur Pulses: PRESENT: normal dorsalis pedis pul Vascular exam: PRESENT: normal capillary refill GI/Abdominal exam: PRESENT: normal bowel sounds, soft. ABSENT: distended, guarding, mass, organolmegaly, rebound, tenderness Rectal exam: PRESENT: deferred Extremities exam: PRESENT: full ROM. ABSENT: calf tenderness, clubbing, pedal edema Musculoskeletal exam: PRESENT: ambulatory, full ROM Neurological exam: PRESENT: alert, awake, oriented to person, oriented to place , oriented to time, oriented to situation, CN II-XII grossly intact. ABSENT: motor sensory deficit Psychiatric exam: PRESENT: anxious Skin exam: PRESENT: dry, intact, warm. ABSENT: cyanosis, rash Results Laboratory Results: 11/05/17 04:17 11/07/17 04:30 11/07/17 04:30 Sodium 132.8 L Potassium 3.5 L Chloride 99 Carbon Dioxide 24 Anion Gap 10 BUN 5 L Creatinine 0.52 Est GFR ( Amer) > 60 Est GFR (Non-Af Amer) > 60 Glucose 93 Calcium 8.6 Lipase 319.0 H Impressions: Chest X-Ray 11/03/17 17:33 IMPRESSION: Chronic lung changes with no acute cardiopulmonary disease. Abdomen Ultrasound 11/03/17 20:20 IMPRESSION: No acute inflammatory changes. Qualifiers - * PATIENT BEING DISCHARGED WITH ANY OF THE FOLLOWING DIAGNOSIS: No Plan Discharge Plan: Home with Follow up with primary care provider Avoid alcohol Outpatient alcohol counseling recommended Time Spent: Less than 30 Minutes
[2017-11-07 12:23] VITALS: BP 121/67
== END 2017-11-07 12:00 | disposition home or self-care (01) | DRG 439 ==
LOC: ER 16:21 → INTOOBSV 21:55 → EH 21:55 → OBSVTOIN 21:55 → 4S 11-04 00:35
PROVIDERS: ADMIT Internal Medicine; ATTEND Internal Medicine
PROC: 3E0F73Z Introduction of Anti-inflammatory into Respiratory Tract, Via Natural or Artificial Opening (ICD-10-PCS; principal; 2017-11-04)
DX: K85.20 Alcohol induced acute pancreatitis without necrosis or infection (principal); F10.239 Alcohol dependence with withdrawal, unspecified; E44.0 Moderate protein-calorie malnutrition; Z68.1 Body mass index [BMI] 19.9 or less, adult; R71.0 Precipitous drop in hematocrit; E87.1 Hypo-osmolality and hyponatremia; E83.52 Hypercalcemia; J44.9 Chronic obstructive pulmonary disease, unspecified; I10 Essential (primary) hypertension; F17.210 Nicotine dependence, cigarettes, uncomplicated; Z83.6 Family history of other diseases of the respiratory system
CPT/HCPCS: 36415; 71045; 76705; 80048; 80053; 80061; 80076; 80307; 81001; 83690; 83735; 84100; 85025; 96361; 96374; 96375; 99284; G0378; J0360; J1170; J1644; J1885; J2060; J2270; J3360; J3411; J3490; J7030; J7050

== ENCOUNTER 2018-03-28 01:31 | Inpatient (IN) | payer OTHER ==
[2018-03-28] MEDS ORDERED: NITROGLYCERIN 2% OINTMENT 1 GM PACKET TP ONE (01:48)
--- NOTE | 2018-03-28 01:48 | ER Document Report ---
ED General - General Chief Complaint: Chest Pain Stated Complaint: CHEST AND ABDOMINAL PAIN Time Seen by Provider: 03/28/18 01:39 Notes: Patient is a 57-year-old male who presents with complaint of pain that is in his left upper abdomen into the left side of his chest. Some numbness into the left arm. This pain is constant. Says he has some pain with deep breathing as well but says most the pain is just is constant and not affected by the breathing. No fevers. No vomiting. No diarrhea. He is a chronic alcoholic. He does smoke every day. He denies history of coronary disease. He does not follow with and regular basis. He does not take medications on a daily basis. He says he has had pancreatitis in the past but this feels a little bit different. No other complaints at this time. TRAVEL OUTSIDE OF THE [place] IN LAST 30 DAYS: No - Related Data Allergies/Adverse Reactions: No Known Allergies Allergy (Verified 11/03/17 16:23) Past Medical History - Social History Smoking Status: Current Every Day Smoker Frequency of alcohol use: Heavy Drug Abuse: None Family History: COPD - Past Medical History Cardiac Medical History: Reports: Hx Hypertension Pulmonary Medical History: Reports: Hx COPD Renal/ Medical History: Denies: Hx Peritoneal Dialysis - Immunizations Hx Diphtheria, Pertussis, Tetanus Vaccination: Yes Review of Systems - Review of Systems Notes: My Normal Review Basic REVIEW OF SYSTEMS: CONSTITUTIONAL : Denies fever, chills, or sweats. Denies recent illness. EENT: Denies eye, ear, throat, or mouth pain or symptoms. Denies nasal or sinus congestion. CARDIOVASCULAR: Has chest pain RESPIRATORY: Denies cough, cold, or chest congestion. Denies shortness of breath, difficulty breathing, or wheezing. GASTROINTESTINAL: Some LUQ abdominal pain. Denies nausea, vomiting. GENITOURINARY: Denies difficulty urinating, painful urination, burning, frequency, or blood in urine. MUSCULOSKELETAL: Denies neck or back pain or joint pain or swelling. SKIN: Denies rash or skin lesions. Neuro: Denies sensory or motor loss. ALL OTHER SYSTEMS REVIEWED AND NEGATIVE. Physical Exam - Vital signs Vitals: Resp Pulse Ox 16 100 03/28/18 01:42 03/28/18 01:42 - Notes Notes: General Appearance: Well nourished, alert, cooperative, no acute distress, moderate obvious discomfort. Vitals: reviewed, See vital signs table. Head: no swelling or tenderness to the head Eyes: PERRL, EOMI, Conjuctiva clear Mouth: No decreasd moisture Lungs: No wheezing, No rales, No rhonci, No accessory muscle use, good air exchange bilaterally. Heart: Normal rate, Regular rythm, No murmur, no rub Abdomen: Normal BS, soft, No rigidity, no reproducible abdominal tenderness to palpation at this time., No guarding, no rebound, no abdominal masses, no organomegaly Extremities: strength 5/5 in all extremities, good pulses in all extremities, no swelling or tenderness in the extremities, no edema. Skin: warm, dry, appropriate color, no rash Neuro: speech clear, oriented x 3, normal affect, responds appropriately to questions. Course - Re-evaluation Re-evalutation: 03/28/18 06:18 Nitro had no effect of the patient's pain. He still having significant amount of pain and feels nauseous now. Avoid some pain medicine nausea medicine. His lipase is elevated. He most likely has alcoholic pancreatitis. He does have pain into his chest and into his left arm. I still did do a cardiac workup. So far his troponin and EKGs are negative. I will call hospitalist for admission. 03/28/18 07:[address] Sharma, he requests to have a CT scan performed being that it is unclear if this is true pancreatitis or not. Says he will follow-up on the result. Admission pending CT scan. Dictation of this chart was performed using voice recognition software; therefore, there may be some unintended grammatical errors. 03/28/18 07:41 - Vital Signs Vital signs: Temp Pulse Resp BP Pulse Ox 15 120/74 96 03/28/18 07:01 03/28/18 07:01 03/28/18 07:01 - Laboratory Result Diagrams: 03/28/18 02:00 03/28/18 02:00 Laboratory results interpreted by me: 03/28/18 03/28/18 02:00 02:00 RBC 4.31 L MCH 33.7 H BUN 4 L ALT 14 L Lipase 2702.4 H - EKG Interpretation by Me Additional EKG results interpreted by me: 03/28/18 01:44 EKG is reviewed and interpreted by me. EKG shows sinus rhythm with a rate of [address] segment elevation or depression. No ischemic T wave inversions. IA interval, QRS duration, QTc intervals are within normal range. No old EKG available for comparison at this time. Discharge - Discharge Clinical Impression: Elevated lipase Chest pain Qualifiers: Chest pain type: unspecified Qualified Code(s): R07.9 - Chest pain, unspecified
[2018-03-28 02:13] LABS: ABSOLUTE BASOPHILS # (AUTO) 0.1 10^3/uL (0.0-0.2); ABSOLUTE EOSINOPHILS # (AUTO) 0.3 10^3/uL (0.0-0.6); ABSOLUTE LYMPHOCYTES (AUTO) 1.8 10^3/uL (0.5-4.7); ABSOLUTE MONOCYTES (AUTO) 0.9 10^3/uL (0.1-1.4); ABSOLUTE NEUT (AUTO) 4.5 10^3/uL (1.7-8.2); BASOPHILS % (AUTO) 0.8 % (0-2); EOSINOPHILS % (AUTO) 3.8 % (0-6); HEMATOCRIT 41.9 % (37.9-51.0); HEMOGLOBIN 14.5 g/dL (13.5-17.0); LYMPHOCYTES % (AUTO) 23.8 % (13-45); MEAN CORPUSCULAR HEMOGLOBIN 33.7 pg (27.0-33.4); MEAN CORPUSCULAR HGB CONC 34.7 g/dL (32.0-36.0); MEAN CORPUSCULAR VOLUME 97 fl (80-97); MONOCYTES % (AUTO) 11.7 % (3-13); PLATELET COUNT 305 10^3/uL (150-450); RED BLOOD COUNT 4.31 10^6/uL (4.35-5.55); RED CELL DISTRIBUTION WIDTH 12.8 % (11.5-14.0); SEGMENTED NEUTROPHILS % (AUTO) 59.9 % (42-78); TOTAL CELLS COUNTED % (AUTO) 100 %; WHITE BLOOD COUNT 7.5 10^3/uL (4.0-10.5)
--- NOTE | 2018-03-28 02:31 | RADIOLOGY REPORT (SQ) ---
CLINICAL HISTORY: chest pain COMPARISON: None. TECHNIQUE: XR CHEST 1 VIEW 03/28/2018 1:45 AM CDT FINDINGS: Cardiac silhouette is normal in size. Lungs are clear without consolidation, atelectasis, mass or edema. There is no pleural effusion. There is no pneumothorax. There are no acute osseous findings. IMPRESSION: Clear lungs.
[2018-03-28 02:39] LABS: ALANINE AMINOTRANSFERASE 14 U/L (21-72); ALBUMIN 3.9 g/dL (3.5-5.0); ALKALINE PHOSPHATASE 68 U/L (38-126); ANION GAP 11 (5-19); ASPARTATE AMINO TRANSFERASE 21 U/L (17-59); BILIRUBIN,DIRECT 0.2 mg/dL (0.0-0.4); BILIRUBIN,TOTAL 0.3 mg/dL (0.2-1.3); BLOOD UREA NITROGEN 4 mg/dL (7-20); CALCIUM 9.2 mg/dL (8.4-10.2); CARBON DIOXIDE 26 mmol/L (22-30); CHLORIDE 103 mmol/L (98-107); GLUCOSE 92 mg/dL (75-110); POTASSIUM 4.7 mmol/L (3.6-5.0); SODIUM 140.2 mmol/L (137-145)
[2018-03-28 02:48] LABS: LIPASE 2702.4 U/L (23-300)
[2018-03-28] MEDS ORDERED: ONDANSETRON HCL INJ/PF 4 MG/2 ML SDV IV ONE (06:16)
[2018-03-28] MEDS ORDERED: HYDROMORPHONE HCL INJ/PF 2 MG/ML AMPULE IV ONE (06:16)
[2018-03-28] MEDS ORDERED: NORMAL SALINE 1000 ML 1,000 ML IV ONE (06:18)
--- NOTE | 2018-03-28 06:55 | EKG REPORT ---
SEVERITY:- ABNORMAL ECG - SINUS RHYTHM LAD, CONSIDER LEFT ANTERIOR FASCICULAR BLOCK : Confirmed by: Lizzy Patino 28-Mar-2018 06:55:38
--- NOTE | 2018-03-28 09:24 | RADIOLOGY REPORT (SQ) ---
EXAM DESCRIPTION: CT ABD/PELVIS WITH IV ONLY COMPLETED DATE/TIME: 03/28/2018 8:29 am REASON FOR STUDY: elevated lipase COMPARISON: None. TECHNIQUE: CT scan of the abdomen and pelvis performed using helical scanning technique with dynamic intravenous contrast injection. No oral contrast. Images reviewed with lung, soft tissue, and bone windows. Reconstructed coronal and sagittal MPR images reviewed. Delayed images for evaluation of the urinary system also acquired. All images stored on PACS. All CT scanners at this facility use dose modulation, iterative reconstruction, and/or weight based d osing when appropriate to reduce radiation dose to as low as reasonably achievable (ALARA). [facility]: Dose Right [facility]: CareDose [facility]: Dose Right [facility]: Teradose 4D [facility]: Drill Cycle CONTRAST TYPE AND DOSE: contrast/concentration: Isovue 350.00 mg/ml; Total Contrast Delivered: 78.0 ml; Total Saline Delivered: 67.0 ml RENAL FUNCTION: BUN 4 creatinine 0.59. RADIATION DOSE: CT Rad equipment meets quality standard of care and radiation dose reduction techniq ues were employed. CTDIvol: 4.8 - 5.4 mGy. DLP: 552 mGy-cm.. LIMITATIONS: None. FINDINGS: LOWER CHEST: No significant findings. No nodules or infiltrates. LIVER: Normal size. No masses. No dilated ducts. SPLEEN: Normal size. No focal lesions. PANCREAS: Prominent inflammatory changes and fluid in the peripancreatic soft tissues. Focal cystic area in the posterior body of the pancreas. Pancreatic duct not dilated. GALLBLADDER: No identified stones by CT criteria. No inflammatory changes to suggest cholecystitis. ADRENAL GLANDS: No significant masses or asymmetry. RIGHT KIDNEY AND URETER: No solid masses. No significant calcifications. No hydronephrosis or hyd roureter. LEFT KIDNEY AND URETER: No solid masses. No significant calcifications. No hydronephrosis or hydr oureter. AORTA AND VESSELS: No aneurysm. No dissection. Renal arteries, SMA, celiac without stenosis. RETROPERITONEUM: No retroperitoneal adenopathy, hemorrhage or masses. BOWEL AND PERITONEAL CAVITY: No masses or inflammatory changes. No free fluid or peritoneal masses. APPENDIX: Not visualized. PELVIS: No mass. Free fluid in the dependent pelvis. Normal bladder. ABDOMINAL WALL: No masses. No hernias. BONES: No significant or acute findings. OTHER: No other significant finding. IMPRESSION: 1. PROMINENT INFLAMMATORY CHANGES AND FLUID IN THE PERIPANCREATIC SOFT TISSUES CONSISTENT WITH PANCRE ATITIS. CYSTIC AREA IN THE POSTERIOR BODY OF THE PANCREAS. 2. NO OTHER SIGNIFICANT OR ACUTE FINDING IN THE ABDOMEN OR PELVIS ON CT SCAN WITH IV CONTRAST. TECHNICAL DOCUMENTATION: JOB ID: [id number] Quality ID # [id number]: Final reports with documentation of one or more dose reduction techniques (e.g., Au tomated exposure control, adjustment of the mA and/or kV according to patient size, use of iterative reconstruction technique) 2010 [email or web address]- All Rights Reserved Reading location - IP/workstation name: [facility]
[2018-03-28] MEDS: DEXTROSE 5%-NORMAL SALINE 1,000 ML IV PRN ×2 (09:43→18:44)
[2018-03-28] MEDS: ENOXAPARIN SODIUM INJ 40 MG/0.4 ML DISP.SYRIN SUBCUT SCH (09:43)
[2018-03-28] MEDS ORDERED: LORAZEPAM INJ 2 MG/1 ML VIAL IV PRN (09:54)
[2018-03-28] MEDS: NICOTINE 21 MG/24 HR PATCH.TD24 TD SCH (10:42)
[2018-03-28] MEDS: MORPHINE SULFATE 10 MG/ML INJ IV PRN ×3 (11:03→20:46)
[2018-03-28 11:24] LABS: APPEARANCE,URINE CLEAR; BILIRUBIN,URINE NEGATIVE (NEGATIVE); COLOR,URINE STRAW; GLUCOSE, URINE NEGATIVE (NEGATIVE); KETONES,URINE NEGATIVE (NEGATIVE); LEUKOCYTE ESTERASE,URINE NEGATIVE (NEGATIVE); NITRITE,URINE NEGATIVE (NEGATIVE); PROTEIN,URINE NEGATIVE (NEGATIVE); URINE SPECIFIC GRAVITY 1.054; UROBILINOGEN,URINE NEGATIVE mg/dL (<2.0)
--- NOTE | 2018-03-28 16:59 | PDOC H&P ---
History of Present Illness Patient complains of: Abdominal pain, nausea History of Present Illness: CLAUDIO LEOS is a 57 year old male history of alcoholism, drinks at least 12-pack [employer] beer a day, history of prior admission for pancreatitis, who presented to the ED with abdominal pain upper abdomen from left to right and radiating up his chest. This started about 10 hours ago, progressive. He reports nausea, but no vomiting. Pain is worse with attempting to eat. His chest pain seems to be radiating from the abdomen. Denies history of CAD, no history of CHF. Denies palpitations, no lower extremity swelling, no PND. Evaluation in the ED significant for lipase of 2700. Abdominal CT showing pancreatitis. He was treated with IV fluid bolus. Patient being admitted to hospitalist service for further evaluation and management. Past Medical History Cardiac Medical History: Reports: Hypertension Pulmonary Medical History: Reports: Chronic Obstructive Pulmonary Disease (COPD) Social History Smoking Status: Current Every Day Smoker Frequency of Alcohol Use: Heavy Hx Recreational Drug Use: No Drugs: Marijuana Hx Prescription Drug Abuse: No Family History Family History: COPD Parental Family History Reviewed: Yes Children Family History Reviewed: Yes Sibling(s) Family History Reviewed.: Yes Medication/Allergy Home Medications: No Home Medications 03/28/18 Allergies/Adverse Reactions: No Known Allergies Allergy (Verified 03/28/18 08:16) Review of Systems Review of Systems: CONSTITUTIONAL : Fever, chills -- No; unexpalined fatigue -- No EENT: Denies eye, ear, throat, or mouth pain or symptoms. Denies nasal or sinus congestion or discharge. Denies throat, tongue, or mouth swelling or difficulty swallowing. CARDIOVASCULAR: As in HPI. No racing heart RESPIRATORY: Denies cough, no shortness of breath, difficulty breathing. GASTROINTESTINAL: Abdominal pain, no distention. Reports nausea, no vomiting or diarrhea. No rectal bleeding. GENITOURINARY: Urinary symptoms -- no. MUSCULOSKELETAL: No acute weakness SKIN: Denies rash, lesions or sores. HEMATOLOGIC : Denies easy bruising or bleeding. LYMPHATIC: Denies swollen, enlarged glands. NEUROLOGICAL: New weakness, headaches, slurred speach - No PSYCHIATRIC: Changes anxiety or stress, depression, suicidal ideation, or homicidal ideation -- No ALL OTHER SYSTEMS REVIEWED AND NEGATIVE. Physical Exam Vital Signs: Temp Pulse Resp BP Pulse Ox 20 133/77 H 93 03/28/18 09:01 03/28/18 09:01 03/28/18 09:01 Intake & Output 03/27/18 03/28/18 03/29/18 06:59 06:59 06:59 Intake Total 1000 Balance 1000 Weight 72 kg GENERAL: Well-developed male, poorly nourished, no acute distress HEENT: Normocephalic/atraumatic, pupils equal round and reactive to light, EOMI , oral mucosa mildly dry, sclera anicteric NECK supple, no JVD CARDIOVASCULAR: RRR, normal S1-S2, no appreciable murmur LUNGS: CTA bilaterally, good air movement ABDOMEN: Soft, moderate tenderness epigastric, mild tenderness right and left lower quadrants, no rebound or guarding, NL bowel sounds EXTREMITIES: No edema, clubbing, cyanosis NEUROLOGICAL: Alert, oriented x 3, nonfocal Results Laboratory Results: 03/28/18 02:00 03/28/18 02:00 03/28/18 03/28/18 02:00 02:00 WBC 7.5 RBC 4.31 L Hgb 14.5 Hct 41.9 MCV 97 MCH 33.7 H MCHC 34.7 RDW 12.8 Plt Count 305 Seg Neutrophils % 59.9 Lymphocytes % 23.8 Monocytes % 11.7 Eosinophils % 3.8 Basophils % 0.8 Absolute Neutrophils 4.5 Absolute Lymphocytes 1.8 Absolute Monocytes 0.9 Absolute Eosinophils 0.3 Absolute Basophils 0.1 Sodium 140.2 Potassium 4.7 Chloride 103 Carbon Dioxide 26 Anion Gap 11 BUN 4 L Creatinine 0.59 Est GFR ( Amer) > 60 Est GFR (Non-Af Amer) > 60 Glucose 92 Calcium 9.2 Total Bilirubin 0.3 AST 21 ALT 14 L Alkaline Phosphatase 68 Total Protein 7.0 Albumin 3.9 Lipase 2702.4 H 03/28/18 02:00 Troponin I < 0.012 Impressions: Chest X-Ray 03/28/18 01:45 IMPRESSION: Clear lungs. Abdomen/Pelvis CT 03/28/18 07:38 IMPRESSION: 1. PROMINENT INFLAMMATORY CHANGES AND FLUID IN THE PERIPANCREATIC SOFT TISSUES CONSISTENT WITH PANCREATITIS. CYSTIC AREA IN THE POSTERIOR BODY OF THE PANCREAS. 2. NO OTHER SIGNIFICANT OR ACUTE FINDING IN THE ABDOMEN OR PELVIS ON CT SCAN WITH IV CONTRAST. Assessment & Plan - Diagnosis (1) Acute pancreatitis Qualifiers: Pancreatitis type: alcohol induced Is this a current diagnosis for this admission?: Yes Plan: Will make n.p.o. for now. He has received fluid boluses, will treat with D5 normal saline at 125 mm/h. Patient strongly counseled about continued alcohol use. (2) Elevated lipase Is this a current diagnosis for this admission?: Yes Plan: Secondary to acute pancreatitis above. (3) Chest pain Qualifiers: Chest pain type: unspecified Qualified Code(s): R07.9 - Chest pain, unspecified Is this a current diagnosis for this admission?: Yes Plan: Suspect this is atypical. No relief with nitro. Please reevaluated treatment of pancreatitis. Will treat with Pepcid for possible reflux component. (4) Alcohol dependence, continuous Is this a current diagnosis for this admission?: Yes Plan: Patient counseled about alcohol cessation. Consider alcohol rehab at discharge. (5) COPD (chronic obstructive pulmonary disease) Is this a current diagnosis for this admission?: Yes Plan: Currently stable. Continue home meds. Continue to monitor. (6) Tobacco abuse Is this a current diagnosis for this admission?: Yes Plan: Patient smokes 1 pack of cigarettes a day. Smoking cessation counseling done. Will treat with nicotine patch. - Inpatient Certification Medical Necessity: Need For IV Fluids, Need for Pain Control
[2018-03-28] MEDS: FAMOTIDINE INJ/PF 20 MG/2 ML SDV IV SCH (18:38)
[2018-03-29] MEDS ORDERED: NORMAL SALINE 1000 ML 1,000 ML with POTASSIUM CHLORIDE 20 MEQ, MAGNESIUM SULFATE 8 MEQ,... IV SCH ×5
[2018-03-29] MEDS ORDERED: THIAMINE HCL 100 MG, FOLIC ACID 1 MG in NORMAL SALINE 250 ML IV ONE (00:19)
[2018-03-29] MEDS ORDERED: FOLIC ACID INJ 5 MG/1 ML 10 ML VIAL ONE (00:41)
[2018-03-29] MEDS ORDERED: THIAMINE HCL INJ 200 MG/2 ML VIAL ONE (00:41)
[2018-03-29] MEDS: MORPHINE SULFATE 10 MG/ML INJ IV PRN ×4 (00:53→20:21)
[2018-03-29] MEDS: DEXTROSE 5%-NORMAL SALINE 1,000 ML IV PRN ×3 (03:04→20:23)
[2018-03-29 05:19] LABS: ABSOLUTE BASOPHILS # (AUTO) 0.1 10^3/uL (0.0-0.2); ABSOLUTE EOSINOPHILS # (AUTO) 0.2 10^3/uL (0.0-0.6); ABSOLUTE LYMPHOCYTES (AUTO) 1.6 10^3/uL (0.5-4.7); ABSOLUTE MONOCYTES (AUTO) 0.7 10^3/uL (0.1-1.4); ABSOLUTE NEUT (AUTO) 4.4 10^3/uL (1.7-8.2); EOSINOPHILS % (AUTO) 2.7 % (0-6); HEMATOCRIT 39.4 % (37.9-51.0); HEMOGLOBIN 13.5 g/dL (13.5-17.0); LYMPHOCYTES % (AUTO) 22.9 % (13-45); MEAN CORPUSCULAR HEMOGLOBIN 33.8 pg (27.0-33.4); MEAN CORPUSCULAR HGB CONC 34.2 g/dL (32.0-36.0); MEAN CORPUSCULAR VOLUME 99 fl (80-97); MONOCYTES % (AUTO) 9.9 % (3-13); PLATELET COUNT 245 10^3/uL (150-450); RED BLOOD COUNT 3.99 10^6/uL (4.35-5.55); RED CELL DISTRIBUTION WIDTH 13.1 % (11.5-14.0); SEGMENTED NEUTROPHILS % (AUTO) 63.5 % (42-78); TOTAL CELLS COUNTED % (AUTO) 100 %; WHITE BLOOD COUNT 6.9 10^3/uL (4.0-10.5)
[2018-03-29 05:42] LABS: ALANINE AMINOTRANSFERASE 13 U/L (21-72); ALBUMIN 3.2 g/dL (3.5-5.0); ALKALINE PHOSPHATASE 53 U/L (38-126); AMYLASE 343 U/L (30-110); ANION GAP 10 (5-19); ASPARTATE AMINO TRANSFERASE 15 U/L (17-59); BILIRUBIN,DIRECT 0.2 mg/dL (0.0-0.4); BILIRUBIN,TOTAL 0.8 mg/dL (0.2-1.3); BLOOD UREA NITROGEN 4 mg/dL (7-20); CALCIUM 8.5 mg/dL (8.4-10.2); CARBON DIOXIDE 24 mmol/L (22-30); CHLORIDE 107 mmol/L (98-107); GLUCOSE 103 mg/dL (75-110); POTASSIUM 4.1 mmol/L (3.6-5.0); TOTAL PROTEIN 5.9 g/dL (6.3-8.2)
[2018-03-29 05:55] LABS: LIPASE 2009.6 U/L (23-300)
[2018-03-29] MEDS: NICOTINE 21 MG/24 HR PATCH.TD24 TD SCH (10:19)
[2018-03-29] MEDS: FAMOTIDINE 20 MG TABLET PO SCH ×3 (10:19→21:25)
[2018-03-29] MEDS: ENOXAPARIN SODIUM INJ 40 MG/0.4 ML DISP.SYRIN SUBCUT SCH (10:19)
[2018-03-29] MEDS ORDERED: LIPASE/PROTEASE/AMYLASE 1 CAP CAPSULE.DR PO SCH ×2 (12:00→17:00)
[2018-03-29] MEDS: DIAZEPAM 5 MG TABLET PO SCH ×3 (13:00→21:24)
[2018-03-29] MEDS: FAMOTIDINE INJ/PF 20 MG/2 ML SDV IV SCH (14:24)
[2018-03-29] MEDS: LIPASE/PROTEASE/AMYLASE 1 CAP CAPSULE.DR PO SCH ×2 (14:27→16:56)
[2018-03-29] MEDS: SUCRALFATE SUSP 1 GM/10 ML UDCUP PO SCH ×2 (16:54→21:24)
[2018-03-29] MEDS: METOCLOPRAMIDE HCL 10 MG TABLET PO SCH ×2 (16:54→21:24)
--- NOTE | 2018-03-29 18:16 | PDOC PROGRESS REPORT ---
Subjective Progress Note for:: 03/29/18 Subjective:: 03/28/30: CLAUDIO MARSHALL is a 57 year old male who presented to the ED with pain in his upper abdomen radiating into his chest and back. The pain began about 10 hours prior to his presentation to the emergency room and had become progressively worse. He describes the pain as a severe aching colicky pressure that is constantly present. The pain was accompanied by nausea but no vomiting. Pain was worsened by trying to eat but no ameliorating factors have been identified. Patient reports similar episodes of this in the past with pancreatitis due to his alcoholism. Evaluation in the ED was significant for a lipase of [address] showing pancreatitis. He was treated with an IV fluid bolus and admitted to the hospitalist service for further evaluation and management. 03/29/18: Mr. Marshall is feeling better today able to tolerate oral fluids and his nausea is gone. He additionally feels like he would like to eat normal food and his pain is essentially gone. He has not had any diarrhea or constipation and he no longer has any chest symptoms or pain in his back. His lipase was decreased to 2000 this morning and as such he will be treated with early feeding and pancreatic enzyme supplementation. I have discussed this plan with the patient and he is in agreement to try it in hopes that if he is doing well he could be discharged as early as tomorrow. Reason For Visit: ACUTE PANCREATITIS ETOH ABUSE Physical Exam Vital Signs: Temp Pulse Resp BP Pulse Ox 98.0 F 71 16 134/76 H 98 03/29/18 15:20 03/29/18 15:20 03/29/18 15:20 03/29/18 15:20 03/29/18 15:20 Intake & Output 03/27/18 03/28/18 03/29/18 23:59 23:59 23:59 Intake Total 1000 2517.2 Output Total 975 Balance 1000 1542.2 Weight 60.5 kg 60.3 kg General appearance: PRESENT: no acute distress, cooperative, thin Head exam: PRESENT: atraumatic, normocephalic Eye exam: PRESENT: conjunctiva pink, EOMI. ABSENT: nystagmus Ear exam: PRESENT: normal external ear exam. ABSENT: bleeding, drainage Mouth exam: PRESENT: neck supple, tongue midline Neck exam: ABSENT: thyromegaly, tracheal deviation Respiratory exam: PRESENT: clear to auscultation rosa, symmetrical, unlabored Cardiovascular exam: PRESENT: RRR. ABSENT: clicks, diastolic murmur, gallop, rubs, systolic murmur Vascular exam: PRESENT: normal capillary refill. ABSENT: pallor GI/Abdominal exam: PRESENT: normal bowel sounds, soft. ABSENT: distended, tenderness Rectal exam: PRESENT: deferred Extremities exam: ABSENT: joint swelling, pedal edema Musculoskeletal exam: PRESENT: full ROM, normal inspection. ABSENT: tenderness Neurological exam: PRESENT: alert, oriented to person, oriented to place, oriented to time, oriented to situation, CN II-XII grossly intact. ABSENT: motor sensory deficit Psychiatric exam: PRESENT: appropriate affect, normal mood Skin exam: ABSENT: jaundice, rash, urticaria Results Laboratory Results: 03/29/18 04:32 03/29/18 04:32 03/29/18 03/29/18 04:32 04:32 WBC 6.9 RBC 3.99 L Hgb 13.5 Hct 39.4 MCV 99 H MCH 33.8 H MCHC 34.2 RDW 13.1 Plt Count 245 Seg Neutrophils % 63.5 Lymphocytes % 22.9 Monocytes % 9.9 Eosinophils % 2.7 Basophils % 1.0 Absolute Neutrophils 4.4 Absolute Lymphocytes 1.6 Absolute Monocytes 0.7 Absolute Eosinophils 0.2 Absolute Basophils 0.1 Sodium 141.0 Potassium 4.1 Chloride 107 Carbon Dioxide 24 Anion Gap 10 BUN 4 L Creatinine 0.56 Est GFR ( Amer) > 60 Est GFR (Non-Af Amer) > 60 Glucose 103 Calcium 8.5 Magnesium 1.9 Total Bilirubin 0.8 AST 15 L ALT 13 L Alkaline Phosphatase 53 Total Protein 5.9 L Albumin 3.2 L Amylase 343 H Lipase 2009.6 H Impressions: Chest X-Ray 03/28/18 01:45 IMPRESSION: Clear lungs. Abdomen/Pelvis CT 03/28/18 07:38 IMPRESSION: 1. PROMINENT INFLAMMATORY CHANGES AND FLUID IN THE PERIPANCREATIC SOFT TISSUES CONSISTENT WITH PANCREATITIS. CYSTIC AREA IN THE POSTERIOR BODY OF THE PANCREAS. 2. NO OTHER SIGNIFICANT OR ACUTE FINDING IN THE ABDOMEN OR PELVIS ON CT SCAN WITH IV CONTRAST. Assessment & Plan - Diagnosis (1) Acute pancreatitis Qualifiers: Pancreatitis type: alcohol induced Is this a current diagnosis for this admission?: Yes Plan: Patient will be treated with the early feeding and pancreatic enzyme replacement protocol. To this end he will receive Pancrease 10 1 p.o. with meals, famotidine 10 mg p.o. before meals and at bedtime, Carafate 1 g p.o. before meals and at bedtime and Reglan 10 mg p.o. before meals and at bedtime. He will be started on a low-fat diet and if he is doing well he can be discharged home tomorrow. 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 3 times daily and as needed 2 mg lorazepam IV. He does not offer to participate in any alcohol treatment program and intends to return to his usual lifestyle after his discharge from the hospital. (3) COPD (chronic obstructive pulmonary disease) Is this a current diagnosis for this admission?: Yes Plan: Patient is a chronic smoker and has mild COPD, to this and he will be treated on a as needed basis for any exacerbations of his COPD. (4) Tobacco dependence Is this a current diagnosis for this admission?: Yes Plan: Patient will be given nicotine patches to reduce his nicotine dependence symptoms while he is hospitalized. - Time Time Spent with patient: 25-34 minutes Smoking Cessation Education: 3 to 10 minutes Anticipated discharge: Home Within: within 24 hours
[2018-03-30] MEDS ORDERED: NORMAL SALINE 1000 ML 1,000 ML with POTASSIUM CHLORIDE 20 MEQ, MAGNESIUM SULFATE 8 MEQ,... IV SCH ×5
[2018-03-30] MEDS: DIAZEPAM 5 MG TABLET PO SCH (05:05)
[2018-03-30] MEDS: SUCRALFATE SUSP 1 GM/10 ML UDCUP PO SCH ×2 (08:16→11:42)
[2018-03-30] MEDS: METOCLOPRAMIDE HCL 10 MG TABLET PO SCH ×2 (08:16→11:42)
[2018-03-30] MEDS: LIPASE/PROTEASE/AMYLASE 1 CAP CAPSULE.DR PO SCH (08:16)
[2018-03-30] MEDS: FAMOTIDINE 20 MG TABLET PO SCH ×2 (08:16→11:42)
[2018-03-30 09:22] VITALS: BP 168/89
[2018-03-30] MEDS: NICOTINE 21 MG/24 HR PATCH.TD24 TD SCH (09:59)
[2018-03-30] MEDS: ENOXAPARIN SODIUM INJ 40 MG/0.4 ML DISP.SYRIN SUBCUT SCH (10:00)
[2018-03-30] MEDS ORDERED: THIAMINE HCL 100 MG TABLET PO SCH (10:00)
[2018-03-30 10:02] LABS: ABSOLUTE BASOPHILS # (AUTO) 0.1 10^3/uL (0.0-0.2); ABSOLUTE EOSINOPHILS # (AUTO) 0.2 10^3/uL (0.0-0.6); ABSOLUTE LYMPHOCYTES (AUTO) 1.5 10^3/uL (0.5-4.7); ABSOLUTE MONOCYTES (AUTO) 0.8 10^3/uL (0.1-1.4); ABSOLUTE NEUT (AUTO) 5.7 10^3/uL (1.7-8.2); BASOPHILS % (AUTO) 1.2 % (0-2); EOSINOPHILS % (AUTO) 2.6 % (0-6); HEMATOCRIT 41.6 % (37.9-51.0); HEMOGLOBIN 14.1 g/dL (13.5-17.0); LYMPHOCYTES % (AUTO) 18.2 % (13-45); MEAN CORPUSCULAR HEMOGLOBIN 33.4 pg (27.0-33.4); MEAN CORPUSCULAR HGB CONC 33.9 g/dL (32.0-36.0); MEAN CORPUSCULAR VOLUME 99 fl (80-97); MONOCYTES % (AUTO) 9.7 % (3-13); PLATELET COUNT 245 10^3/uL (150-450); RED BLOOD COUNT 4.22 10^6/uL (4.35-5.55); SEGMENTED NEUTROPHILS % (AUTO) 68.3 % (42-78); TOTAL CELLS COUNTED % (AUTO) 100 %; WHITE BLOOD COUNT 8.3 10^3/uL (4.0-10.5)
[2018-03-30] MEDS ORDERED: FOLIC ACID/VITAMIN B COMP W-C CAPSULE PO SCH (11:00)
--- NOTE | 2018-03-30 16:57 | PDOC DISCHARGE SUMMARY ---
General - Admit/Disc Date/PCP Admission Date/Primary Care Provider: 03/28/18 10:46 Discharge Date: 03/30/18 - Discharge Diagnosis (1) Acute pancreatitis Is this a current diagnosis for this admission?: Yes Summary: 03/29/18: Patient will be treated with the early feeding and pancreatic enzyme replacement protocol. To this end he will receive Pancrease 10 1 p.o. with meals, famotidine 10 mg p.o. before meals and at bedtime, Carafate 1 g p.o. before meals and at bedtime and Reglan 10 mg p.o. before meals and at bedtime. He will be started on a low-fat diet and if he is doing well he can be discharged home tomorrow. 03/30/18: Mr. Marshall has done exceptionally well with the early feeding and enzyme replacement protocol. He denies abdominal pain, nausea and vomiting. He has been able to tolerate normal food and feels very well, so much so that he wishes to be discharged home. (2) Alcohol dependence Is this a current diagnosis for this admission?: Yes Summary: Patient's alcoholism will be addressed by supplementing him with Valium 10 mg p.o. 3 times daily and as needed 2 mg lorazepam IV. He does not offer to participate in any alcohol treatment program and intends to return to his usual lifestyle after his discharge from the hospital. He states that he normally has 2 beers/drinks on a daily basis during the week and anywhere from 4-6 beers/ drinks per day on weekends. (3) COPD (chronic obstructive pulmonary disease) Is this a current diagnosis for this admission?: Yes Summary: Patient is a chronic smoker and has mild COPD, to this and he will be treated on a as needed basis for any exacerbations of his COPD. (4) Tobacco dependence Is this a current diagnosis for this admission?: Yes Summary: Patient will be given nicotine patches to reduce his nicotine dependence symptoms while he is hospitalized. He expresses no interest in continuing nicotine patches on an outpatient basis and intends to return to smoking. - Additional Information Resuscitation Status: Full Code Discharge Diet: As Tolerated, Other (Comments) Discharge Activity: Activity As Tolerated Prescriptions: Famotidine [Pepcid 20 mg Tablet] 10 mg PO ACHS 10 Days #20 tablet Lipase/Protease/Amylase [Pancreaze-10 Capsule.dr] 1 cap PO MEALS 10 Days #30 capsule. Metoclopramide HCl [Reglan 10 mg Tablet] 5 mg PO ACHS 10 Days #20 tablet Sucralfate [Carafate 1 gm Tablet] 1 gm PO ACHS 10 Days #40 tablet Home Medications: Famotidine [Pepcid 20 mg Tablet] 10 mg PO ACHS 10 Days #20 tablet 03/30/18 Lipase/Protease/Amylase [Pancreaze-10 Capsule.dr] 1 cap PO MEALS 10 Days #30 capsule. 03/30/18 Metoclopramide HCl [Reglan 10 mg Tablet] 5 mg PO ACHS 10 Days #20 tablet Sucralfate [Carafate 1 gm Tablet] 1 gm PO ACHS 10 Days #40 tablet 03/30/18 History of Present Illness Patient complains of: Abdominal pain History of Present Illness: 03/28/30: CLAUDIO MARSHALL is a 57 year old male who presented to the ED with pain in his upper abdomen radiating into his chest and back. The pain began about 10 hours prior to his presentation to the emergency room and had become progressively worse. He describes the pain as a severe aching colicky pressure that is constantly present. The pain was accompanied by nausea but no vomiting. Pain was worsened by trying to eat but no ameliorating factors have been identified. Patient reports similar episodes of this in the past with pancreatitis due to his alcoholism. Evaluation in the ED was significant for a lipase of [address] showing pancreatitis. He was treated with an IV fluid bolus and admitted to the hospitalist service for further evaluation and management. Hospital Course Hospital Course: 03/29/18: Mr. Marshall is feeling better today able to tolerate oral fluids and his nausea is gone. He additionally feels like he would like to eat normal food and his pain is essentially gone. He has not had any diarrhea or constipation and he no longer has any chest symptoms or pain in his back. His lipase was decreased to 2000 this morning and as such he will be treated with early feeding and pancreatic enzyme supplementation. I have discussed this plan with the patient and he is in agreement to try it in hopes that if he is doing well he could be discharged as early as tomorrow. 03/30/18: Mr. Marshall has done exceptionally well with the early feeding and enzyme replacement protocol. He denies abdominal pain, nausea and vomiting. He has been able to tolerate normal food and feels very well, so much so that he wishes to be discharged home. Physical Exam Vital Signs: Temp Pulse Resp BP Pulse Ox 97.7 F 65 20 168/89 H 95 03/30/18 11:55 03/30/18 11:55 03/30/18 11:55 03/30/18 11:55 03/30/18 11:55 Intake & Output 03/28/18 03/29/18 03/30/18 23:59 23:59 23:59 Intake Total 1000 3517.2 Output Total 975 725 Balance 1000 2542.2 -725 Weight 60.5 kg 60.3 kg 59.8 kg General appearance: PRESENT: no acute distress, cooperative, thin Head exam: PRESENT: atraumatic, normocephalic Eye exam: ABSENT: conjunctival injection, nystagmus, scleral icterus Ear exam: PRESENT: normal external ear exam. ABSENT: bleeding, drainage Respiratory exam: PRESENT: clear to auscultation rosa, symmetrical, unlabored Cardiovascular exam: PRESENT: RRR. ABSENT: clicks, gallop, rubs Vascular exam: PRESENT: normal capillary refill. ABSENT: pallor GI/Abdominal exam: PRESENT: normal bowel sounds, soft Rectal exam: PRESENT: deferred Extremities exam: ABSENT: joint swelling, pedal edema Musculoskeletal exam: PRESENT: full ROM, normal inspection Neurological exam: PRESENT: alert, oriented to person, oriented to place, oriented to time, oriented to situation Psychiatric exam: PRESENT: appropriate affect, normal mood Skin exam: ABSENT: jaundice, rash, urticaria Results Laboratory Results: 03/30/18 09:28 03/30/18 09:28 03/30/18 03/30/18 09:28 09:28 WBC 8.3 RBC 4.22 L Hgb 14.1 Hct 41.6 MCV 99 H MCH 33.4 MCHC 33.9 RDW 13.0 Plt Count 245 Seg Neutrophils % 68.3 Lymphocytes % 18.2 Monocytes % 9.7 Eosinophils % 2.6 Basophils % 1.2 Absolute Neutrophils 5.7 Absolute Lymphocytes 1.5 Absolute Monocytes 0.8 Absolute Eosinophils 0.2 Absolute Basophils 0.1 Sodium Cancelled Potassium Cancelled Chloride Cancelled Carbon Dioxide Cancelled Anion Gap Cancelled BUN Cancelled Creatinine Cancelled Est GFR ( Amer) Cancelled Est GFR (Non-Af Amer) Cancelled Glucose Cancelled Calcium Cancelled Total Bilirubin Cancelled AST Cancelled ALT Cancelled Alkaline Phosphatase Cancelled Total Protein Cancelled Albumin Cancelled Triglycerides Cancelled Cholesterol Cancelled LDL Cholesterol Direct Cancelled VLDL Cholesterol Cancelled HDL Cholesterol Cancelled Amylase Cancelled Lipase Cancelled Impressions: Chest X-Ray 03/28/18 01:45 IMPRESSION: Clear lungs. Abdomen/Pelvis CT 03/28/18 07:38 IMPRESSION: 1. PROMINENT INFLAMMATORY CHANGES AND FLUID IN THE PERIPANCREATIC SOFT TISSUES CONSISTENT WITH PANCREATITIS. CYSTIC AREA IN THE POSTERIOR BODY OF THE PANCREAS. 2. NO OTHER SIGNIFICANT OR ACUTE FINDING IN THE ABDOMEN OR PELVIS ON CT SCAN WITH IV CONTRAST. Qualifiers - * PATIENT BEING DISCHARGED WITH ANY OF THE FOLLOWING DIAGNOSIS: No Plan Discharge Plan: Discharged home in improved and stable condition Time Spent: Greater than 30 Minutes
== END 2018-03-30 12:20 | disposition home or self-care (01) | DRG 440 ==
LOC: ER 01:31 → EH 10:46 → 4N 13:10
PROVIDERS: ADMIT Internal Medicine; ATTEND Internal Medicine
DX: K85.20 Alcohol induced acute pancreatitis without necrosis or infection (principal); I10 Essential (primary) hypertension; J44.9 Chronic obstructive pulmonary disease, unspecified; F10.20 Alcohol dependence, uncomplicated; F17.210 Nicotine dependence, cigarettes, uncomplicated; Z82.5 Family history of asthma and other chronic lower respiratory diseases; Z79.899 Other long term (current) drug therapy
CPT/HCPCS: 36415; 71045; 74177; 80053; 81001; 82150; 83690; 83735; 84484; 85025; 93005; 93010; 96361; 96372; 96374; 96375; 99285; J1170; J1650; J2270; J2405; J3411; J3475; J3480; J3490; J7030; J7050; S0028

== ENCOUNTER 2018-10-08 08:23 | Inpatient (IN) | payer OTHER ==
[2018-10-08] MEDS ORDERED: NORMAL SALINE 1000 ML 1,000 ML IV ONE (09:07)
--- NOTE | 2018-10-08 09:12 | ER Document Report ---
ED General - General Chief Complaint: Abdominal Pain Stated Complaint: ABDOMINAL PAIN Time Seen by Provider: 10/08/18 09:07 Notes: Patient is a 57-year-old male with history of alcohol abuse and pancreatitis that presents to the emergency department for chief complaint of epigastric pain and nausea. Patient states that his pain started and got progressively worse over the past few days, has had associated nausea but no vomiting or diarrhea. He states that he binge drank on Wednesday and Wednesday, and thinks that that is what triggered this. He still drinks about 6 beers daily, but drank more on Wednesday and Wednesday. He denies noting any fevers, chills, night sweats, chest pain, shortness of breath or difficulty breathing. He currently rates his pain as a 10 out of 10 describes as a constant aching sensation and sharp at times in his epigastric region of his abdomen. Denies any urinary symptoms. Past Medical History: Hypertension, alcohol abuse, history of pancreatitis Past Surgical History: Reviewed no pertinent surgical history to presentation Social History: Admits to alcohol use daily, and daily cigarette use, denies illicit drug use Family History: Reviewed and noncontributory for presenting illness Allergies: Reviewed, see documented allergy list. REVIEW OF SYSTEMS: Other than noted above, the 12 point review of systems was reviewed with the patient and were negative, all pertinent findings are included in the HPI. PHYSICAL EXAMINATION: Vital signs reviewed, nursing noted reviewed. GENERAL: Patient appears uncomfortable on exam, but no immediate distress HEAD: Atraumatic, normocephalic. EYES: Eyes appear normal, extraocular movements intact, sclera anicteric, conjunctiva are normal. ENT: nares patent, oropharynx clear without exudates. Moist mucous membranes. NECK: Normal range of motion, supple without lymphadenopathy LUNGS: Breath sounds clear to auscultation bilaterally and equal. No wheezes rales or rhonchi. HEART: Regular rate and rhythm without murmurs ABDOMEN: Soft, epigastric tenderness with palpation, normoactive bowel sounds. No rebound, guarding, or rigidity. No masses appreciated. EXTREMITIES: Nontender, good range of motion, no pitting or edema. NEUROLOGICAL: No focal neurological deficits. Moves all extremities spontaneously Motor and sensory grossly intact on exam. PSYCH: Normal mood, normal affect. SKIN: Warm, Dry, normal turgor, no rashes or lesions noted on exposed skin TRAVEL OUTSIDE OF THE [place] IN LAST 30 DAYS: No - Related Data Allergies/Adverse Reactions: No Known Allergies Allergy (Verified 10/08/18 08:24) Past Medical History - Social History Smoking Status: Current Every Day Smoker Family History: COPD - Past Medical History Cardiac Medical History: Reports: Hx Hypertension Pulmonary Medical History: Reports: Hx COPD Renal/ Medical History: Denies: Hx Peritoneal Dialysis - Immunizations Hx Diphtheria, Pertussis, Tetanus Vaccination: Yes Physical Exam - Vital signs Vitals: Temp Pulse Resp BP Pulse Ox 98.4 F 79 18 141/87 H 99 10/08/18 08:27 10/08/18 08:27 10/08/18 08:27 10/08/18 08:27 10/08/18 08:27 Course - Re-evaluation Re-evalutation: Patient seen and examined vital signs reviewed. Laboratory data and imaging were ordered as appropriate for the patient's prese nting symptoms and complaint, with consideration of any critical or life threatening conditions that may be associated with their obtained history and exam as noted above. Patient was treated with IV fluid, Zofran and Dilaudid, given a total of 2 L of IV fluid Results were reviewed when available and demonstrated significant elevation of lipase concerning for acute pancreatitis, did pursue CT imaging of the abdomen and pelvis, given patient had prior small pseudocyst, to evaluate for possible progression, did demonstrate inflammation generally of the pancreas, without change of pseudocyst, and a possible ileus. Patient clinically though was not demonstrating signs of ileus. The patient was re-evaluated and was stable and improved from a pain standpoint Evaluation was most consistent with acute alcoholic induced pancreatitis Results were discussed with the patient at this point after careful consideration I feel that that patient should be admitted to the hospital. This was discussed with the patient that it is in the best interest for their care to be admitted for further evaluation and management. Patient agreed with this plan of care. A call was placed to the admitted physician, Mariana Richardson CNP who graciously accepted the patient onto their service. *Note is created using voice recognition software and may contain spelling, syntax or grammatical errors. Laboratory 10/08/18 10/08/18 10/08/18 10:00 10:00 10:25 WBC 8.8 RBC 4.10 L Hgb 13.9 Hct 40.0 MCV 98 H MCH 33.8 H MCHC 34.7 RDW 13.4 Plt Count 271 Seg Neutrophils % 77.4 Lymphocytes % 10.5 L Monocytes % 10.7 Eosinophils % 0.9 Basophils % 0.5 Absolute Neutrophils 6.8 Absolute Lymphocytes 0.9 Absolute Monocytes 0.9 Absolute Eosinophils 0.1 Absolute Basophils 0.0 Sodium 133.9 L Potassium 4.1 Chloride 98 Carbon Dioxide 24 Anion Gap 12 BUN 4 L Creatinine 0.50 L Est GFR ( Amer) > 60 Est GFR (Non-Af Amer) > 60 Glucose 96 Calcium 9.1 Total Bilirubin 0.7 Direct Bilirubin 0.2 Neonat Total Bilirubin Not Reportable Neonat Direct Bilirubin Not Reportable Neonat Indirect Bili Not Reportable AST 16 L ALT 22 Alkaline Phosphatase 56 Total Protein 6.4 Albumin 3.9 Lipase 1985.7 H Urine Color YELLOW Urine Appearance CLEAR Urine pH 7.0 Ur Specific [place] 1.006 Urine Protein 30 H Urine Glucose (UA) NEGATIVE Urine Ketones TRACE H Urine Blood NEGATIVE Urine Nitrite NEGATIVE Urine Bilirubin NEGATIVE Urine Urobilinogen NEGATIVE Ur Leukocyte Esterase NEGATIVE Urine WBC (Auto) 0 Urine RBC (Auto) 0 Urine Mucus (Auto) RARE Urine Ascorbic Acid NEGATIVE Abdomen/Pelvis CT 10/08/18 09:20 IMPRESSION: 1. Chronic or recurrent pancreatic inflammatory changes consistent with pancreatitis. At least 1 small pseudocyst or cystic mass which is also chronic and nonprogressive compared to last year. No pancreatic necrosis. 2. Ileus. - Vital Signs Vital signs: Temp Pulse Resp BP Pulse Ox 98.4 F 79 18 141/87 H 99 10/08/18 08:27 10/08/18 08:27 10/08/18 08:27 10/08/18 08:27 10/08/18 08:27 - Laboratory Result Diagrams: 10/08/18 10:00 10/08/18 10:00 Laboratory results interpreted by me: 10/08/18 10/08/18 10/08/18 10:00 10:00 10:25 RBC 4.10 L MCV 98 H MCH 33.8 H Lymphocytes % 10.5 L Sodium 133.9 L BUN 4 L Creatinine 0.50 L AST 16 L Lipase 1985.7 H Urine Protein 30 H Urine Ketones TRACE H - EKG Interpretation by Me Additional EKG results interpreted by me: EKG demonstrates sinus rhythm with left anterior fascicular block, ventricular rate of 64 bpm, left axis deviation, normal intervals, no ST elevation, this is compared to prior EKG from 03/28/2018, without significant change. Discharge - Discharge Clinical Impression: Acute pancreatitis Qualifiers: Pancreatitis type: alcohol induced Acute pancreatitis complication: unspecified Qualified Code(s): K85.20 - Alcohol induced acute pancreatitis without necrosis or infection Condition: Stable Disposition: ADMITTED INPATIENT Admitting Provider: Mariana Richardson CERTIFIED PERSONAL CHEF Unit Admitted: Telemetry
[2018-10-08] MEDS ORDERED: ONDANSETRON HCL INJ/PF 4 MG/2 ML SDV IV ONE (09:19)
[2018-10-08] MEDS ORDERED: HYDROMORPHONE HCL INJ/PF 2 MG/ML AMPULE IV ONE (09:19)
[2018-10-08 10:25] LABS: ABSOLUTE EOSINOPHILS # (AUTO) 0.1 10^3/uL (0.0-0.6); ABSOLUTE LYMPHOCYTES (AUTO) 0.9 10^3/uL (0.5-4.7); ABSOLUTE MONOCYTES (AUTO) 0.9 10^3/uL (0.1-1.4); ABSOLUTE NEUT (AUTO) 6.8 10^3/uL (1.7-8.2); BASOPHILS % (AUTO) 0.5 % (0-2); EOSINOPHILS % (AUTO) 0.9 % (0-6); HEMOGLOBIN 13.9 g/dL (13.5-17.0); LYMPHOCYTES % (AUTO) 10.5 % (13-45); MEAN CORPUSCULAR HEMOGLOBIN 33.8 pg (27.0-33.4); MEAN CORPUSCULAR HGB CONC 34.7 g/dL (32.0-36.0); MEAN CORPUSCULAR VOLUME 98 fl (80-97); MONOCYTES % (AUTO) 10.7 % (3-13); PLATELET COUNT 271 10^3/uL (150-450); RED CELL DISTRIBUTION WIDTH 13.4 % (11.5-14.0); SEGMENTED NEUTROPHILS % (AUTO) 77.4 % (42-78); TOTAL CELLS COUNTED % (AUTO) 100 %; WHITE BLOOD COUNT 8.8 10^3/uL (4.0-10.5)
[2018-10-08 10:36] LABS: ALANINE AMINOTRANSFERASE 22 U/L (21-72); ALBUMIN 3.9 g/dL (3.5-5.0); ALKALINE PHOSPHATASE 56 U/L (38-126); ANION GAP 12 (5-19); ASPARTATE AMINO TRANSFERASE 16 U/L (17-59); BILIRUBIN,DIRECT 0.2 mg/dL (0.0-0.4); BILIRUBIN,TOTAL 0.7 mg/dL (0.2-1.3); BLOOD UREA NITROGEN 4 mg/dL (7-20); CALCIUM 9.1 mg/dL (8.4-10.2); CARBON DIOXIDE 24 mmol/L (22-30); CHLORIDE 98 mmol/L (98-107); GLUCOSE 96 mg/dL (75-110); POTASSIUM 4.1 mmol/L (3.6-5.0); SODIUM 133.9 mmol/L (137-145); TOTAL PROTEIN 6.4 g/dL (6.3-8.2)
[2018-10-08 10:37] LABS: APPEARANCE,URINE CLEAR; BILIRUBIN,URINE NEGATIVE (NEGATIVE); COLOR,URINE YELLOW; GLUCOSE, URINE NEGATIVE (NEGATIVE); KETONES,URINE TRACE mg/dL (NEGATIVE); LEUKOCYTE ESTERASE,URINE NEGATIVE (NEGATIVE); NITRITE,URINE NEGATIVE (NEGATIVE); PROTEIN,URINE 30 mg/dL (NEGATIVE); URINE SPECIFIC GRAVITY 1.006; UROBILINOGEN,URINE NEGATIVE mg/dL (<2.0)
[2018-10-08 10:43] LABS: LIPASE 1985.7 U/L (23-300)
[2018-10-08] MEDS ORDERED: RINGERS SOLUTION,LACTATED 1,000 ML IV ONE (10:52)
--- NOTE | 2018-10-08 11:36 | RADIOLOGY REPORT (SQ) ---
EXAM DESCRIPTION: CT ABD/PELVIS WITH IV ONLY COMPLETED DATE/TIME: 10/08/2018 11:23 am REASON FOR STUDY: epigastric pain, hx pancreatitis COMPARISON: 2017. TECHNIQUE: CT scan of the abdomen and pelvis performed using helical scanning technique with dynamic intravenous contrast injection. No oral contrast. Images reviewed with lung, soft tissue, and bone windows. Reconstructed coronal and sagittal MPR images reviewed. Delayed images for evaluation of the urinary system also acquired. All images stored on PACS. All CT scanners at this facility use dose modulation, iterative reconstruction, and/or weight based d osing when appropriate to reduce radiation dose to as low as reasonably achievable (ALARA). [facility]: Dose Right [facility]: CareDose [facility]: Dose Right [facility]: Teradose 4D [facility]: [employer] CONTRAST TYPE AND DOSE: contrast/concentration: Isovue 350.00 mg/ml; Total Contrast Delivered: 72.0 ml; Total Saline Delivered: 66.0 ml RENAL FUNCTION: GFR > 60. RADIATION DOSE: CT Rad equipment meets quality standard of care and radiation dose reduction techniq ues were employed. CTDIvol: 4.8 - 5.5 mGy. DLP: 522 mGy-cm.. LIMITATIONS: None. FINDINGS: LOWER CHEST: No significant findings. No nodules or infiltrates. LIVER: Normal size. No masses. No dilated ducts. SPLEEN: Normal size. No focal lesions. PANCREAS: Inflammatory changes along the tail of the pancreas. Chronic low density cystic mass or fl uid collection measuring 1.6 cm with at least 1. Of calcification. This is nonprogressive. No deve loping lesions or pancreatic duct dilatation. GALLBLADDER: No identified stones by CT criteria. No inflammatory changes to suggest cholecystitis. ADRENAL GLANDS: No significant masses or asymmetry. RIGHT KIDNEY AND URETER: No solid masses. No significant calcification. No hydronephrosis or hydroure ter. LEFT KIDNEY AND URETER: No solid masses. No significant calcification. No hydronephrosis or hydrouret er. AORTA AND VESSELS: No aneurysm. No dissection. Renal arteries, SMA, celiac without stenosis. RETROPERITONEUM: No retroperitoneal adenopathy, hemorrhage or masses. BOWEL AND PERITONEAL CAVITY: Fluid-filled loops of small bowel, relatively diffusely. Gas and fluid distended colon diffusely. No point of obstruction identified. APPENDIX: Not visualized. PELVIS: Mild free fluid in the pelvis. This looks minimally complicated, Hounsfield units in the mid 20s. Bladder unremarkable. ABDOMINAL WALL: No masses. No hernias. BONES: No significant or acute findings. OTHER: No other significant finding. IMPRESSION: 1. Chronic or recurrent pancreatic inflammatory changes consistent with pancreatitis. At least 1 sma ll pseudocyst or cystic mass which is also chronic and nonprogressive compared to last year. No panc reatic necrosis. 2. Ileus. TECHNICAL DOCUMENTATION: JOB ID: [id number] Quality ID # [id number]: Final reports with documentation of one or more dose reduction techniques (e.g., Au tomated exposure control, adjustment of the mA and/or kV according to patient size, use of iterative reconstruction technique) 2010 [employer]- All Rights Reserved Reading location - IP/workstation name: [email or web address]
[2018-10-08] MEDS ORDERED: ONDANSETRON 4 MG TAB.RAPDIS PO PRN (12:43)
[2018-10-08] MEDS ORDERED: ACETAMINOPHEN 325 MG TABLET PO PRN (12:43)
[2018-10-08] MEDS: ENOXAPARIN SODIUM INJ 30 MG/0.3 ML DISP.SYRIN SUBCUT SCH (13:51)
[2018-10-08] MEDS: NORMAL SALINE 1000 ML 1,000 ML IV PRN (13:52)
[2018-10-08] MEDS: HYDROMORPHONE HCL INJ/PF 2 MG/ML AMPULE IV PRN ×2 (15:53→22:21)
--- NOTE | 2018-10-08 16:51 | PDOC H&P ---
History of Present Illness Admission Date/PCP: 10/08/18 13:01 Patient complains of: ABDOMINAL PAIN History of Present Illness: CLAUDIO LEOS is a 57 year old male with a PMH of HTN and alcoholic pancreatitis. He presented to [facility] ED for abdominal pain. The patient reports he was drinking heavily on Wednesday and Wednesday, developed abdominal pain and Wednesday. The pain was so bad this morning (Wednesday), it prompted him to come to the emergency department. Patient has a known history of alcoholic pancreatitis, but states he usually does not have flareups, despite his daily habit of drinking 5 [employer] beers. Upon arrival to the emergency department, vital signs were WNL. Laboratory studies reveal an elevated lipase (1985) and mild hyponatremia (Na 133). CT abdomen shows recurrent pancreatic inflammatory changes, consistent with pancreatitis. One small pseudocyst unchanged when compared to previous CT. No evidence of pancreatic necrosis. Upon assessment, the patient is resting comfortably in bed on room air. is at the bedside. The patient endorses periumbilical abdominal pain radiating to bilateral lower quadrants. Abdominal exam is relatively benign. Normal bowel sounds and the patient is not tender to palpation (patient reports he is typically not TTP during his pancreatitis flareups). He endorses mild nausea, denies vomiting today. Plan to admit to hospitalist service for pancreatitis. Past Medical History Cardiac Medical History: Reports: Hypertension Pulmonary Medical History: Reports: Chronic Obstructive Pulmonary Disease (COPD) Psychiatric Medical History: Denies: Depression Past Surgical History Past Surgical History: Reports: Tonsillectomy Social History Information Source: Patient Lives with: Spouse/Significant other Smoking Status: Current Every Day Smoker Cigarettes Packs Per Day: 1 Number of Years Smokin Frequency of Alcohol Use: Heavy Amount of Alcoholic Beverages Per Day: 5 Hx Recreational Drug Use: No Drugs: Marijuana Hx Prescription Drug Abuse: No - Advance Directive Resuscitation Status: Full Code Family History Family History: COPD, Malignancy - father Parental Family History Reviewed: Yes Children Family History Reviewed: Yes Sibling(s) Family History Reviewed.: Yes Medication/Allergy Home Medications: Amlodipine Besylate [Norvasc 2.5 mg Tablet] 1 tab PO DAILY 10/08/18 Allergies/Adverse Reactions: No Known Allergies Allergy (Verified 10/08/18 08:24) Review of Systems All systems: reviewed and no additional remarkable complaints except as stated Physical Exam Vital Signs: Temp Pulse Resp BP Pulse Ox 98.0 F 73 12 139/69 H 95 10/08/18 16:00 10/08/18 16:00 10/08/18 16:00 10/08/18 16:00 10/08/18 16:00 Intake & Output 10/07/18 10/08/18 10/09/18 06:59 06:59 06:59 Intake Total 2240 Balance 2240 Weight 64.5 kg General appearance: PRESENT: no acute distress Head exam: PRESENT: atraumatic Eye exam: PRESENT: conjunctiva pink, PERRLA Mouth exam: PRESENT: moist, tongue midline Teeth exam: PRESENT: poor dentation Respiratory exam: PRESENT: clear to auscultation rosa, symmetrical, unlabored Cardiovascular exam: PRESENT: RRR Pulses: PRESENT: normal radial pulses, normal dorsalis pedis pul Vascular exam: PRESENT: normal capillary refill GI/Abdominal exam: PRESENT: normal bowel sounds, soft. ABSENT: distended, firm, guarding, rigid, tenderness Rectal exam: PRESENT: deferred Extremities exam: PRESENT: full ROM. ABSENT: pedal edema Musculoskeletal exam: PRESENT: ambulatory, full ROM, normal inspection Neurological exam: PRESENT: alert, awake, oriented to person, oriented to place, oriented to time, oriented to situation Psychiatric exam: PRESENT: appropriate affect Skin exam: PRESENT: dry, intact, normal color Results Laboratory Results: 10/08/18 10:00 10/08/18 10:00 10/08/18 10/08/18 10/08/18 10:00 10:00 10:25 WBC 8.8 RBC 4.10 L Hgb 13.9 Hct 40.0 MCV 98 H MCH 33.8 H MCHC 34.7 RDW 13.4 Plt Count 271 Seg Neutrophils % 77.4 Lymphocytes % 10.5 L Monocytes % 10.7 Eosinophils % 0.9 Basophils % 0.5 Absolute Neutrophils 6.8 Absolute Lymphocytes 0.9 Absolute Monocytes 0.9 Absolute Eosinophils 0.1 Absolute Basophils 0.0 Sodium 133.9 L Potassium 4.1 Chloride 98 Carbon Dioxide 24 Anion Gap 12 BUN 4 L Creatinine 0.50 L Est GFR ( Amer) > 60 Est GFR (Non-Af Amer) > 60 Glucose 96 Calcium 9.1 Total Bilirubin 0.7 AST 16 L ALT 22 Alkaline Phosphatase 56 Total Protein 6.4 Albumin 3.9 Lipase 1985.7 H Urine Color YELLOW Urine Appearance CLEAR Urine pH 7.0 Ur Specific [place] 1.006 Urine Protein 30 H Urine Glucose (UA) NEGATIVE Urine Ketones TRACE H Urine Blood NEGATIVE Urine Nitrite NEGATIVE Ur Leukocyte Esterase NEGATIVE Urine WBC (Auto) 0 Urine RBC (Auto) 0 Impressions: Abdomen/Pelvis CT 10/08/18 09:20 IMPRESSION: 1. Chronic or recurrent pancreatic inflammatory changes consistent with pancreatitis. At least 1 small pseudocyst or cystic mass which is also chronic and nonprogressive compared to last year. No pancreatic necrosis. 2. Ileus. Status: Imported from PACS Assessment and Plan - Diagnosis (1) Acute pancreatitis Qualifiers: Pancreatitis type: alcohol induced Acute pancreatitis complication: unspecified Qualified Code(s): K85.20 - Alcohol induced acute pancreatitis without necrosis or infection Is this a current diagnosis for this admission?: Yes Plan: Patient admits to an increase in recent EtOH intake 3 days ago, abdominal pain began 2 days ago PMH alcoholic pancreatitis with known small pseudocyst Initial lipase upon presentation 1984 CT abdomen/pelvis demonstrates inflammation of the pancreas without change of pseudocyst Maintenance IVF PRN Dilaudid for pain PRN Zofran for nausea Clear liquid diet, monitor for postprandial nausea, vomiting or abdominal pain Will advance diet as tolerated (2) Alcohol dependence Qualifiers: Complication of substance-induced condition: uncomplicated Is this a current diagnosis for this admission?: Yes Plan: Patient endorses history of drinking 4-5 beers per day No history of delirium tremors or seizures when withdrawing, reports having symptoms of agitation when withdrawing from alcohol Scheduled p.o. Valium Daily p.o. thiamine, folate and MVI PRN IV Ativan for agitation or withdrawal (3) Tobacco abuse Is this a current diagnosis for this admission?: Yes Plan: Patient endorses 40-year history of smoking approximately 1 pack/day Will offer daily nicotine patch (4) Ileus Is this a current diagnosis for this admission?: Yes Plan: Seen on CT Patient reports he is able to pass gas and has been having normal bowel movements Clinically not demonstrating signs of an ileus
[2018-10-08] MEDS ORDERED: MULTIVITAMIN TABLET PO ONE (17:00)
[2018-10-08] MEDS ORDERED: FOLIC ACID 1 MG TABLET PO ONE (17:00)
[2018-10-08] MEDS ORDERED: THIAMINE HCL 100 MG TABLET PO ONE (17:00)
[2018-10-08] MEDS: DIAZEPAM 2 MG TABLET PO PRN (19:54)
--- NOTE | 2018-10-08 23:26 | EKG REPORT ---
SEVERITY:- ABNORMAL ECG - SINUS RHYTHM LEFT ANTERIOR FASCICULAR BLOCK : Confirmed by: Norma Calero MD 08-Oct-2018 23:26:04
[2018-10-09] MEDS: DIAZEPAM 2 MG TABLET PO PRN (01:22)
[2018-10-09] MEDS: NORMAL SALINE 1000 ML 1,000 ML IV PRN ×2 (01:22→15:00)
[2018-10-09] MEDS: HYDROMORPHONE HCL INJ/PF 2 MG/ML AMPULE IV PRN ×3 (04:16→17:35)
[2018-10-09 06:04] LABS: HEMATOCRIT 39.6 % (37.9-51.0); HEMOGLOBIN 13.6 g/dL (13.5-17.0); MEAN CORPUSCULAR HEMOGLOBIN 34.1 pg (27.0-33.4); MEAN CORPUSCULAR HGB CONC 34.2 g/dL (32.0-36.0); MEAN CORPUSCULAR VOLUME 100 fl (80-97); PLATELET COUNT 269 10^3/uL (150-450); RED BLOOD COUNT 3.98 10^6/uL (4.35-5.55); RED CELL DISTRIBUTION WIDTH 13.5 % (11.5-14.0); WHITE BLOOD COUNT 7.3 10^3/uL (4.0-10.5)
[2018-10-09 06:27] LABS: ALANINE AMINOTRANSFERASE 13 U/L (21-72); ALBUMIN 3.5 g/dL (3.5-5.0); ALKALINE PHOSPHATASE 50 U/L (38-126); ANION GAP 11 (5-19); ASPARTATE AMINO TRANSFERASE 17 U/L (17-59); BILIRUBIN,DIRECT 0.2 mg/dL (0.0-0.4); BILIRUBIN,TOTAL 0.6 mg/dL (0.2-1.3); BLOOD UREA NITROGEN 3 mg/dL (7-20); CALCIUM 8.8 mg/dL (8.4-10.2); CARBON DIOXIDE 25 mmol/L (22-30); CHLORIDE 100 mmol/L (98-107); CHOLESTEROL 107.08 mg/dL (0-200); GLUCOSE 129 mg/dL (75-110); PHOSPHORUS 3.8 mg/dL (2.5-4.5); SODIUM 136.2 mmol/L (137-145); TOTAL PROTEIN 6.3 g/dL (6.3-8.2); TRIGLYCERIDES 75 mg/dL (<150)
[2018-10-09 06:37] LABS: DIRECT LDL 51 mg/dL (<100)
[2018-10-09] MEDS: ENOXAPARIN SODIUM INJ 30 MG/0.3 ML DISP.SYRIN SUBCUT SCH (09:15)
[2018-10-09] MEDS: NICOTINE 14 MG/24 HR PATCH.TD24 TD SCH (09:23)
[2018-10-09] MEDS ORDERED: AMLODIPINE BESYLATE 2.5 MG TABLET PO SCH (10:00)
[2018-10-09] MEDS ORDERED: THIAMINE HCL 100 MG TABLET PO SCH (10:00)
[2018-10-09] MEDS ORDERED: FOLIC ACID 1 MG TABLET PO SCH (10:00)
[2018-10-09] MEDS ORDERED: DIAZEPAM 2 MG TABLET PO SCH (10:00)
[2018-10-09] MEDS ORDERED: AMLODIPINE BESYLATE 5 MG TABLET PO SCH (10:00)
[2018-10-09] MEDS ORDERED: MULTIVITAMIN TABLET PO SCH (10:00)
--- NOTE | 2018-10-09 13:31 | RADIOLOGY REPORT (SQ) ---
EXAM DESCRIPTION: KUB/ABDOMEN (SINGLE VIEW) COMPLETED DATE/TIME: 10/09/2018 1:18 pm REASON FOR STUDY: ABDOMINAL PAIN COMPARISON: CT abdomen and pelvis 10/08/2018, 03/28/2018 NUMBER OF VIEWS: One view. TECHNIQUE: Supine radiographic image of the abdomen acquired. LIMITATIONS: None. FINDINGS: BOWEL GAS PATTERN: There is diffuse gaseous distension of stomach small bowel and colon. Rectosigmoid air bubble present. Findings likely represent an ileus. CALCIFICATIONS: No suspicious calcifications. SOFT TISSUES: No gross mass or suggestion of organomegaly. HARDWARE: None in the abdomen. BONES: No acute fracture. No worrisome bone lesions. OTHER: No other significant finding. IMPRESSION: Diffuse gaseous distension of stomach small bowel and colon, likely an ileus TECHNICAL DOCUMENTATION: JOB ID: [id number] [employer]- All Rights Reserved Reading location - IP/workstation name: [email or web address]
[2018-10-09] MEDS ORDERED: MAGNESIUM HYDROXIDE SUSP 30 ML UDCUP PO PRN (13:48)
[2018-10-09] MEDS ORDERED: SENNOSIDES/DOCUSATE 8.6-50 MG 1 EACH TABLET PO SCH (14:00)
[2018-10-09] MEDS ORDERED: POLYETHYLENE GLYCOL 3350 POWDER 17 GM/1 PACKET PO SCH (14:00)
[2018-10-09] MEDS ORDERED: DEXTROSE 40% GEL 15 GM TUBE PO PRN ×2 (14:10)
[2018-10-09] MEDS ORDERED: GLUCAGON,HUMAN RECOMB 1 MG INJ SUBCUT PRN (14:10)
[2018-10-09] MEDS ORDERED: DEXTROSE 50%-WATER 25 GM/50 ML DISP.SYRIN IV PRN ×2 (14:10)
[2018-10-09] MEDS ORDERED: PHARMACY COMMUNICATION ORDER MC NR (14:15)
[2018-10-09] MEDS ORDERED: MAGNESIUM HYDROXIDE SUSP 30 ML UDCUP NG PRN (14:24)
[2018-10-09] MEDS ORDERED: ONDANSETRON 4 MG TAB.RAPDIS NG PRN (14:26)
[2018-10-09] MEDS ORDERED: ACETAMINOPHEN SOLN 325 MG/10.15 ML UDCUP NG PRN (14:27)
[2018-10-09] MEDS ORDERED: NA PHOS,M-B/NA PHOS,DI-BA (ADULT) 133 ML ENEMA PR ONE (14:45)
[2018-10-09] MEDS ORDERED: LIDOCAINE 2% JELLY 5 ML TUBE MM PRN (14:51)
[2018-10-09] MEDS: LORAZEPAM INJ 2 MG/1 ML VIAL IV PRN ×2 (14:59→21:29)
--- NOTE | 2018-10-09 15:02 | PDOC CONSULTATION ---
Consultation Consult Date: 10/09/18 Attending physician:: Mariana Provider Consulted: ANNABELLA VALENTINE Consult reason:: Pancreatitis History of Present Illness Admission Date/PCP: 10/08/18 13:01 History of Present Illness: CLAUDIO LEOS is a 57 year old male The patient is a 57-year-old white male with all abuse, pancreatitis, recurrent, known pancreatic pseudocyst in the body-tail the pancreas who was admitted to the hospital service yesterday after sustaining multiple days of binge drinking, with intense abdominal pain. He was admitted following a CT scan of the abdomen and pelvis which showed mild to moderate pancreatitis. Had no Guprreet criteria. He was actually fed clear liquids but subsequently developed intense abdominal pain nausea and abdominal distention. An abdominal x-ray showed dilated small bowel and colonic gas. No free air. Surgery was consulted for management opinion. Past Medical History Cardiac Medical History: Reports: Hypertension Pulmonary Medical History: Reports: Chronic Obstructive Pulmonary Disease (COPD) Psychiatric Medical History: Denies: Depression Past Surgical History Past Surgical History: Reports: Tonsillectomy Social History Lives with: Spouse/Significant other Smoking Status: Current Every Day Smoker Cigarettes Packs Per Day: 1 Number of Years Smokin Frequency of Alcohol Use: Heavy Hx Recreational Drug Use: No Drugs: Marijuana Hx Prescription Drug Abuse: No - Advance Directive Resuscitation Status: Full Code Family History Family History: None, COPD, Malignancy - father Parental Family History Reviewed: Yes Children Family History Reviewed: Yes Sibling(s) Family History Reviewed.: Yes Medication/Allergy Home Medications: Amlodipine Besylate [Norvasc 2.5 mg Tablet] 1 tab PO DAILY 10/08/18 Allergies/Adverse Reactions: No Known Allergies Allergy (Verified 10/08/18 08:24) Review of Systems ROS unobtainable: Other - Patient getting a nasogastric tube inserted and we cannot conduct a review of systems Physical Exam Vital Signs: Temp Pulse Resp BP Pulse Ox 97.9 F 69 18 147/86 H 92 10/09/18 11:47 10/09/18 11:47 10/09/18 11:47 10/09/18 11:47 10/09/18 11:47 Intake & Output 10/08/18 10/09/18 10/10/18 06:59 06:59 06:59 Intake Total 4467 720 Output Total 1100 300 Balance 3367 420 Weight 65.3 kg General appearance: PRESENT: mild distress, other - Getting nasogastric tube inserted Head exam: PRESENT: normocephalic Mouth exam: PRESENT: other - Poor dentition Teeth exam: PRESENT: dental caries Respiratory exam: PRESENT: rhonchi Cardiovascular exam: PRESENT: RRR Pulses: PRESENT: normal carotid pulses, normal radial pulses, normal femoral pulses GI/Abdominal exam: PRESENT: other - Mildly distended, tympanitic; no peritoneal signs. Rectal exam: PRESENT: deferred Extremities exam: PRESENT: full ROM Neurological exam: PRESENT: awake, oriented to person, oriented to place, oriented to time, oriented to situation Psychiatric exam: PRESENT: agitated Results Laboratory Results: 10/09/18 05:14 10/09/18 05:14 10/09/18 10/09/18 10/09/18 05:14 05:14 05:14 WBC 7.3 RBC 3.98 L Hgb 13.6 Hct 39.6 MCV 100 H MCH 34.1 H MCHC 34.2 RDW 13.5 Plt Count 269 Sodium 136.2 L Potassium 4.0 Chloride 100 Carbon Dioxide 25 Anion Gap 11 BUN 3 L Creatinine 0.50 L Est GFR ( Amer) > 60 Est GFR (Non-Af Amer) > 60 Glucose 129 H Calcium 8.8 Phosphorus 3.8 Magnesium 1.8 Total Bilirubin 0.6 AST 17 ALT 13 L Alkaline Phosphatase 50 Total Protein 6.3 Albumin 3.5 Triglycerides 75 Cholesterol 107.08 LDL Cholesterol Direct 51 VLDL Cholesterol 15.0 HDL Cholesterol 52 Lipase 1159.6 H 10/09/18 05:14 NT-Pro-B Natriuret Pep 313 Impressions: Abdomen/Pelvis CT 10/08/18 09:20 IMPRESSION: 1. Chronic or recurrent pancreatic inflammatory changes consistent with pancreatitis. At least 1 small pseudocyst or cystic mass which is also chronic and nonprogressive compared to last year. No pancreatic necrosis. 2. Ileus. KUB X-Ray 10/09/18 00:00 IMPRESSION: Diffuse gaseous distension of stomach small bowel and colon, likely an ileus Assessment & Plan - Diagnosis (1) Acute pancreatitis Qualifiers: Pancreatitis type: alcohol induced Acute pancreatitis complication: unspecified Qualified Code(s): K85.20 - Alcohol induced acute pancreatitis without necrosis or infection Is this a current diagnosis for this admission?: Yes Plan: Impression: Acute recurrent alcohol induced pancreatitis in heavy smoker, drinker; patient failed trial of clear liquids. Now with ileus; lipase hovering around 1000 Patient does not have evidence of acute abdomen at this time. Commendations: 1. Discussed the above with primary care provider; no indication for surgical intervention at this time. 2. Suggested large caliber nasogastric tube, increase IV fluids and monitor urine out. 3. We will follow patient in consultation with you (2) Alcohol dependence Qualifiers: Complication of substance-induced condition: uncomplicated Is this a current diagnosis for this admission?: Yes (3) COPD (chronic obstructive pulmonary disease) Is this a current diagnosis for this admission?: Yes (4) Tobacco abuse Is this a current diagnosis for this admission?: Yes
--- NOTE | 2018-10-09 16:29 | PDOC PROGRESS REPORT ---
Subjective Progress Note for:: 10/09/18 Subjective:: CLAUDIO LEOS is a 57 year old male with a PMH of HTN and alcoholic pancreatitis. He presented to [facility] ED for abdominal pain. Initial lipase 1,985, patient admitted to [facility] for alcoholic pancreatitis. Patient was seen this morning on rounds, he is resting comfortably in bed. He just finished his clear liquid breakfast tray. The patient denies postprandial abdominal pain, nausea or vomiting. He endorses abdominal distention, states he feels bloated. Patient endorses passing gas, has not had a bowel movement in 3 days. On physical exam, the patient's abdomen is notably more distended today when compared to yesterday. Bowel sounds are present. Abdomen is nontender. KUB shows gaseous distention of the stomach small bowel and colon, rectosigmoid air bubble, findings traffic workforce representative of an ileus. Surgery was consulted, Dr. Mckenna recommends making the patient NPO and placing an NG tube to continuous suction. No surgical intervention at this time. Reason For Visit: PANCREATITS Physical Exam Vital Signs: Temp Pulse Resp BP Pulse Ox 97.9 F 64 18 147/86 H 92 10/09/18 11:47 10/09/18 14:00 10/09/18 11:47 10/09/18 11:47 10/09/18 11:47 Intake & Output 10/08/18 10/09/18 10/10/18 06:59 06:59 06:59 Intake Total 4467 720 Output Total 1100 300 Balance 3367 420 Weight 65.3 kg General appearance: PRESENT: no acute distress, well-developed, well-nourished Head exam: PRESENT: atraumatic, normocephalic Eye exam: PRESENT: conjunctiva pink, EOMI, PERRLA. ABSENT: scleral icterus Ear exam: PRESENT: normal external ear exam Mouth exam: PRESENT: moist, tongue midline Neck exam: ABSENT: carotid bruit, JVD, lymphadenopathy, thyromegaly Respiratory exam: PRESENT: clear to auscultation rosa. ABSENT: rales, rhonchi, wheezes Cardiovascular exam: PRESENT: RRR. ABSENT: diastolic murmur, rubs, systolic murmur Pulses: PRESENT: normal dorsalis pedis pul Vascular exam: PRESENT: normal capillary refill GI/Abdominal exam: PRESENT: distended, firm, normal bowel sounds, soft. ABSENT: guarding, mass, organolmegaly, rebound, rigid, tenderness Rectal exam: PRESENT: deferred Extremities exam: PRESENT: full ROM. ABSENT: calf tenderness, clubbing, pedal edema Neurological exam: PRESENT: alert, awake, oriented to person, oriented to place, oriented to time, oriented to situation Psychiatric exam: PRESENT: appropriate affect, normal mood Skin exam: PRESENT: dry, intact, warm. ABSENT: cyanosis, rash Results Laboratory Results: 10/09/18 05:14 10/09/18 05:14 10/09/18 10/09/18 10/09/18 05:14 05:14 05:14 WBC 7.3 RBC 3.98 L Hgb 13.6 Hct 39.6 MCV 100 H MCH 34.1 H MCHC 34.2 RDW 13.5 Plt Count 269 Sodium 136.2 L Potassium 4.0 Chloride 100 Carbon Dioxide 25 Anion Gap 11 BUN 3 L Creatinine 0.50 L Est GFR ( Amer) > 60 Est GFR (Non-Af Amer) > 60 Glucose 129 H Calcium 8.8 Phosphorus 3.8 Magnesium 1.8 Total Bilirubin 0.6 AST 17 ALT 13 L Alkaline Phosphatase 50 Total Protein 6.3 Albumin 3.5 Triglycerides 75 Cholesterol 107.08 LDL Cholesterol Direct 51 VLDL Cholesterol 15.0 HDL Cholesterol 52 Lipase 1159.6 H 10/09/18 05:14 NT-Pro-B Natriuret Pep 313 Impressions: Abdomen/Pelvis CT 10/08/18 09:20 IMPRESSION: 1. Chronic or recurrent pancreatic inflammatory changes consistent with pancreatitis. At least 1 small pseudocyst or cystic mass which is also chronic and nonprogressive compared to last year. No pancreatic necrosis. 2. Ileus. KUB X-Ray 10/09/18 00:00 IMPRESSION: Diffuse gaseous distension of stomach small bowel and colon, likely an ileus Status: Imported from PACS Assessment and Plan - Diagnosis (1) Acute pancreatitis Qualifiers: Pancreatitis type: alcohol induced Acute pancreatitis complication: unspecified Qualified Code(s): K85.20 - Alcohol induced acute pancreatitis without necrosis or infection Is this a current diagnosis for this admission?: Yes Plan: Patient admits to an increase in recent EtOH intake 3 days ago, abdominal pain began 2 days ago PMH alcoholic pancreatitis with known small pseudocyst Initial lipase upon presentation 1984, improved today 1100 CT abdomen/pelvis demonstrates inflammation of the pancreas without change of pseudocyst Maintenance IVF PRN Dilaudid for pain PRN Zofran for nausea N.p.o. (2) Alcohol dependence Qualifiers: Complication of substance-induced condition: uncomplicated Is this a current diagnosis for this admission?: Yes Plan: Patient endorses history of drinking 4-5 beers per day No history of delirium tremors or seizures when withdrawing, reports having symptoms of agitation when withdrawing from alcohol Scheduled p.o. Valium Daily p.o. thiamine, folate and MVI PRN IV Ativan for agitation or withdrawal (3) Tobacco abuse Is this a current diagnosis for this admission?: Yes Plan: Patient endorses 40-year history of smoking approximately 1 pack/day Will offer daily nicotine patch (4) Ileus Is this a current diagnosis for this admission?: Yes Plan: Seen on CT Patient reports he is able to pass gas, last bowel movement 2 days ago Worsening abdominal distention today, extensive gas pattern seen on KUB Surgery consulted Plan for NG placement N.p.o. - Time Time Spent with patient: 15-24 minutes Medications reviewed and adjusted accordingly: Yes Anticipated discharge: Home Within: within 72 hours - Inpatient Certification Based on my medical assessment, after consideration of the patient's comorbidities, presenting symptoms, or acuity I expect that the services needed warrant INPATIENT care.: Yes I certify that my determination is in accordance with my understanding of Medicare's requirements for reasonable and necessary INPATIENT services [42 CFR 412.3e].: Yes Medical Necessity: Need Close Monitoring Due to Risk of Patient Decompensation, Risk of Complication if Not Cared For in Hospital
[2018-10-09] MEDS: DIAZEPAM 2 MG TABLET NG SCH (17:30)
[2018-10-09] MEDS: SENNOSIDES/DOCUSATE 8.6-50 MG 1 EACH TABLET NG SCH (21:25)
[2018-10-10] MEDS: DIAZEPAM 2 MG TABLET NG SCH ×2 (00:06→05:43)
[2018-10-10] MEDS: NORMAL SALINE 1000 ML 1,000 ML IV PRN ×2 (00:15→09:35)
[2018-10-10] MEDS: LORAZEPAM INJ 2 MG/1 ML VIAL IV PRN ×2 (03:13→09:35)
[2018-10-10] MEDS ORDERED: ONDANSETRON 4 MG TAB.RAPDIS NG PRN (09:00)
[2018-10-10] MEDS ORDERED: HALOPERIDOL LACTATE INJ 5 MG/1 ML VIAL IV PRN (09:13)
--- NOTE | 2018-10-10 09:22 | PDOC PROGRESS REPORT ---
Subjective Progress Note for:: 10/10/18 Subjective:: This is a 57-year-old male with a history of alcohol abuse and alcoholic pancreatitis. The patient's last gallbladder ultrasound was normal. The patient reports that he feels better today. His abdominal pain has improved significantly. He denies any back pain, shortness of breath, chest pain, headache, nausea, vomiting, fevers, chills, dizziness, orthostasis, blurry vision. Reason For Visit: PANCREATITS Physical Exam Vital Signs: Temp Pulse Resp BP Pulse Ox 98.2 F 75 19 140/78 H 93 10/10/18 08:00 10/10/18 08:00 10/10/18 08:00 10/10/18 08:00 10/10/18 08:00 Intake & Output 10/09/18 10/10/18 10/11/18 06:59 06:59 06:59 Intake Total 4467 3080 Output Total 1100 300 Balance 3367 2780 Weight 65.3 kg 65.1 kg General appearance: PRESENT: no acute distress, cooperative Head exam: PRESENT: atraumatic, normocephalic Eye exam: PRESENT: EOMI, PERRLA. ABSENT: scleral icterus Mouth exam: PRESENT: moist, neck supple Neck exam: ABSENT: meningismus, tenderness, thyromegaly, tracheal deviation Respiratory exam: PRESENT: clear to auscultation rosa. ABSENT: chest wall tenderness Cardiovascular exam: PRESENT: RRR Pulses: PRESENT: normal radial pulses GI/Abdominal exam: PRESENT: distended - Mild, soft. ABSENT: guarding, rigid, tenderness Rectal exam: PRESENT: deferred Extremities exam: ABSENT: clubbing Musculoskeletal exam: ABSENT: deformity Neurological exam: PRESENT: alert, awake, oriented to person, oriented to place, oriented to time, oriented to situation Psychiatric exam: ABSENT: agitated, anxious, depressed Focused psych exam: ABSENT: delusional Skin exam: ABSENT: cyanosis, erythema, jaundice Results Laboratory Results: 10/09/18 05:14 10/09/18 05:14 10/09/18 05:14 Lipase 1159.6 H 10/09/18 05:14 NT-Pro-B Natriuret Pep 313 Impressions: Abdomen/Pelvis CT 10/08/18 09:20 IMPRESSION: 1. Chronic or recurrent pancreatic inflammatory changes consistent with pancreatitis. At least 1 small pseudocyst or cystic mass which is also chronic and nonprogressive compared to last year. No pancreatic necrosis. 2. Ileus. KUB X-Ray 10/09/18 00:00 IMPRESSION: Diffuse gaseous distension of stomach small bowel and colon, likely an ileus Assessment & Plan - Diagnosis (1) Acute pancreatitis Qualifiers: Pancreatitis type: alcohol induced Acute pancreatitis complication: unspecified Qualified Code(s): K85.20 - Alcohol induced acute pancreatitis without necrosis or infection Is this a current diagnosis for this admission?: Yes - Plan Summary Plan Summary: This is a 57-year-old male with alcoholic pancreatitis. The patient's lipase is stable from yesterday. His abdominal pain is improving. He still appears somewhat distended, but denies nausea or vomiting. I would recommend continuation of bowel rest until the patient's lipase is trending downward and he begins to pass flatus. The patient's last gallbladder ultrasound was normal. I do not believe surgical intervention is in his best interest at this time. I will see the patient again on an as-needed basis. Please renotify with any questions or concerns.
[2018-10-10] MEDS: SENNOSIDES/DOCUSATE 8.6-50 MG 1 EACH TABLET NG SCH (09:34)
[2018-10-10] MEDS: ENOXAPARIN SODIUM INJ 40 MG/0.4 ML DISP.SYRIN SUBCUT SCH (09:34)
[2018-10-10] MEDS: NICOTINE 14 MG/24 HR PATCH.TD24 TD SCH (09:59)
[2018-10-10] MEDS ORDERED: AMLODIPINE BESYLATE 2.5 MG TABLET NG SCH (10:00)
[2018-10-10] MEDS ORDERED: FOLIC ACID 1 MG TABLET NG SCH (10:00)
[2018-10-10] MEDS ORDERED: MULTIVITAMINS W-IRON TABLET, CHEWABLE NG SCH (10:00)
[2018-10-10] MEDS ORDERED: POLYETHYLENE GLYCOL 3350 POWDER 17 GM/1 PACKET NG SCH (10:00)
[2018-10-10] MEDS ORDERED: THIAMINE HCL 100 MG TABLET NG SCH (10:00)
--- NOTE | 2018-10-10 10:21 | PDOC PROGRESS REPORT ---
Subjective Progress Note for:: 10/10/18 Subjective:: This is 57 years old male patient with past medical history of alcohol abuse dependence, hypertension and alcohol induced pancreatitis presented with chief complaint of abdominal pain. The patient reports that he drank heavily for 2 days in a row and developed abdominal pain. His lipase at admission was 1955 and yesterday it is trended down to 1159. His CT scan is also compatible with chronic or recurrent pancreatitis. This morning patient seen resting on supine position. He reports his abdominal pain is relatively better. He is ileus is improving evidenced by passing gas. Patient also seen by Dr. Kelly this morning who recommended to keep him n.p.o. to rest his bowel. Patient advised and encouraged to remain sober and clean. Reason For Visit: PANCREATITS Physical Exam Vital Signs: Temp Pulse Resp BP Pulse Ox 98.2 F 75 19 140/78 H 93 10/10/18 08:00 10/10/18 08:00 10/10/18 08:00 10/10/18 08:00 10/10/18 08:00 Intake & Output 10/09/18 10/10/18 10/11/18 06:59 06:59 06:59 Intake Total 4467 3080 Output Total 1100 300 Balance 3367 2780 Weight 65.3 kg 65.1 kg General appearance: PRESENT: no acute distress Head exam: PRESENT: atraumatic Neck exam: ABSENT: carotid bruit, JVD, lymphadenopathy, thyromegaly Respiratory exam: PRESENT: clear to auscultation rosa. ABSENT: rales, rhonchi, wheezes Cardiovascular exam: PRESENT: RRR. ABSENT: diastolic murmur, rubs, systolic murmur GI/Abdominal exam: PRESENT: normal bowel sounds, tenderness Neurological exam: PRESENT: alert, awake, oriented to time, oriented to situation Results Laboratory Results: 10/09/18 05:14 10/09/18 05:14 10/09/18 05:14 NT-Pro-B Natriuret Pep 313 Impressions: Abdomen/Pelvis CT 10/08/18 09:20 IMPRESSION: 1. Chronic or recurrent pancreatic inflammatory changes consistent with pancreatitis. At least 1 small pseudocyst or cystic mass which is also chronic and nonprogressive compared to last year. No pancreatic necrosis. 2. Ileus. KUB X-Ray 10/09/18 00:00 IMPRESSION: Diffuse gaseous distension of stomach small bowel and colon, likely an ileus Assessment and Plan - Diagnosis (1) recurrent pancreatitis alcohol induced Is this a current diagnosis for this admission?: Yes Plan: Continue hydration bowel rest and pain control. (2) Ileus Is this a current diagnosis for this admission?: Yes Plan: Resolving. (3) Alcohol dependence Is this a current diagnosis for this admission?: Yes Plan: Patient counseled and encourage (4) Hypertension Qualifiers: Hypertension type: essential hypertension Qualified Code(s): I10 - Esse ntial (primary) hypertension Is this a current diagnosis for this admission?: Yes Plan: BP stable
[2018-10-10] MEDS ORDERED: MAGNESIUM HYDROXIDE SUSP 30 ML UDCUP PO PRN (12:00)
[2018-10-10] MEDS ORDERED: LORAZEPAM INJ 2 MG/1 ML VIAL IV PRN (12:00)
[2018-10-10] MEDS ORDERED: ACETAMINOPHEN SOLN 325 MG/10.15 ML UDCUP PO PRN (12:00)
[2018-10-10] MEDS ORDERED: ONDANSETRON 4 MG TAB.RAPDIS PO PRN (12:00)
[2018-10-10] MEDS: DIAZEPAM 2 MG TABLET PO SCH ×3 (14:35→23:49)
[2018-10-10] MEDS: HYDROMORPHONE HCL INJ/PF 2 MG/ML AMPULE IV PRN (19:26)
[2018-10-10] MEDS: SENNOSIDES/DOCUSATE 8.6-50 MG 1 EACH TABLET PO SCH (21:25)
[2018-10-11] MEDS: NORMAL SALINE 1000 ML 1,000 ML IV PRN ×2 (01:15→10:28)
[2018-10-11] MEDS: HYDROMORPHONE HCL INJ/PF 2 MG/ML AMPULE IV PRN (01:30)
[2018-10-11] MEDS: DIAZEPAM 2 MG TABLET PO SCH ×4 (05:08→23:24)
[2018-10-11] MEDS: AMLODIPINE BESYLATE 2.5 MG TABLET PO SCH (10:29)
[2018-10-11] MEDS: FOLIC ACID 1 MG TABLET PO SCH (10:29)
[2018-10-11] MEDS: MULTIVITAMINS W-IRON TABLET, CHEWABLE PO SCH (10:29)
[2018-10-11] MEDS: THIAMINE HCL 100 MG TABLET PO SCH (10:29)
[2018-10-11] MEDS: ENOXAPARIN SODIUM INJ 40 MG/0.4 ML DISP.SYRIN SUBCUT SCH (10:30)
[2018-10-11] MEDS: POLYETHYLENE GLYCOL 3350 POWDER 17 GM/1 PACKET PO SCH (10:30)
[2018-10-11] MEDS: NICOTINE 14 MG/24 HR PATCH.TD24 TD SCH (10:30)
[2018-10-11] MEDS: SENNOSIDES/DOCUSATE 8.6-50 MG 1 EACH TABLET PO SCH ×2 (10:30→21:00)
--- NOTE | 2018-10-11 15:25 | PDOC PROGRESS REPORT ---
Subjective Progress Note for:: 10/11/18 Subjective:: No adverse events overnight. No new complaints. Vital signs been stable. Lipase is now normal. No abdominal pain. No bloating or abdominal distention. No nausea or vomiting. Passing flatus. Reason For Visit: PANCREATITS Physical Exam Vital Signs: Temp Pulse Resp BP Pulse Ox 98.2 F 58 L 19 156/71 H 97 10/11/18 11:51 10/11/18 14:00 10/11/18 11:51 10/11/18 11:51 10/11/18 11:51 Intake & Output 10/10/18 10/11/18 10/12/18 06:59 06:59 06:59 Intake Total 3080 3000 Output Total 300 500 Balance 2780 2500 Weight 65.1 kg General appearance: PRESENT: no acute distress, cooperative, disheveled, thin Respiratory exam: PRESENT: clear to auscultation rosa, symmetrical, unlabored. ABSENT: accessory muscle use, crackles, prolonged expiratory phas, rhonchi, tachypnea, wheezes Cardiovascular exam: PRESENT: RRR, +S1, +S2 Pulses: PRESENT: normal carotid pulses Vascular exam: PRESENT: normal capillary refill GI/Abdominal exam: PRESENT: normal bowel sounds, soft. ABSENT: distended, guarding, rebound, tenderness Extremities exam: ABSENT: clubbing, pedal edema Musculoskeletal exam: PRESENT: normal inspection. ABSENT: deformity Neurological exam: PRESENT: alert, awake, oriented to person, oriented to place, oriented to time, oriented to situation Psychiatric exam: PRESENT: appropriate affect, normal mood Skin exam: PRESENT: dry, warm Results Laboratory Results: 10/09/18 05:14 10/09/18 05:14 10/11/18 06:30 Lipase 175.1 10/09/18 05:14 NT-Pro-B Natriuret Pep 313 Impressions: Abdomen/Pelvis CT 10/08/18 09:20 IMPRESSION: 1. Chronic or recurrent pancreatic inflammatory changes consistent with pancreatitis. At least 1 small pseudocyst or cystic mass which is also chronic and nonprogressive compared to last year. No pancreatic necrosis. 2. Ileus. KUB X-Ray 10/09/18 00:00 IMPRESSION: Diffuse gaseous distension of stomach small bowel and colon, likely an ileus Assessment and Plan - Diagnosis (1) Acute pancreatitis Qualifiers: Pancreatitis type: alcohol induced Acute pancreatitis complication: unspecified Qualified Code(s): K85.20 - Alcohol induced acute pancreatitis without necrosis or infection Is this a current diagnosis for this admission?: Yes Plan: Lipase is normal. No more nausea vomiting. We will advance his diet to clear liquids today. (2) Alcohol dependence Qualifiers: Substance use status: uncomplicated Qualified Code(s): F10.20 - Alcohol dependence, uncomplicated Is this a current diagnosis for this admission?: Yes Plan: No signs of alcohol withdrawal. Monitoring closely. (3) Ileus Is this a current diagnosis for this admission?: Yes Plan: Seems to have resolved. He is got good bowel sounds and is passing gas. Abdomen is flat. Will advance diet to clear liquids today. - Time Time Spent with patient: 15-24 minutes
[2018-10-12] MEDS: DIAZEPAM 2 MG TABLET PO SCH ×2 (05:07→12:44)
[2018-10-12] MEDS: AMLODIPINE BESYLATE 2.5 MG TABLET PO SCH (09:53)
[2018-10-12] MEDS: MULTIVITAMINS W-IRON TABLET, CHEWABLE PO SCH (09:53)
[2018-10-12] MEDS: NICOTINE 14 MG/24 HR PATCH.TD24 TD SCH (09:53)
[2018-10-12] MEDS: FOLIC ACID 1 MG TABLET PO SCH (09:53)
[2018-10-12] MEDS: THIAMINE HCL 100 MG TABLET PO SCH (09:53)
[2018-10-12] MEDS: POLYETHYLENE GLYCOL 3350 POWDER 17 GM/1 PACKET PO SCH (09:54)
[2018-10-12] MEDS: SENNOSIDES/DOCUSATE 8.6-50 MG 1 EACH TABLET PO SCH (09:54)
[2018-10-12] MEDS: ENOXAPARIN SODIUM INJ 40 MG/0.4 ML DISP.SYRIN SUBCUT SCH (09:54)
[2018-10-12 15:53] VITALS: BP 139/77
--- NOTE | 2018-10-12 16:17 | PDOC DISCHARGE SUMMARY ---
General - Admit/Disc Date/PCP Admission Date/Primary Care Provider: 10/08/18 13:01 Discharge Date: 10/12/18 - Discharge Diagnosis (1) Acute pancreatitis Is this a current diagnosis for this admission?: Yes Summary: Suspected to be alcohol induced. He was given got rest, fluids, and anti- medics. His symptoms resolved. He was able to eat solid food without any difficulty prior to discharge. (2) Alcohol dependence Is this a current diagnosis for this admission?: Yes Summary: He was given vitamin supplementation and watch for signs of withdrawal. He fortunately did not experience any. He was strongly encouraged to substantially decrease his alcohol consumption if not quit altogether. (3) Ileus Is this a current diagnosis for this admission?: Yes Summary: Due to his pancreatitis. Surgery was consulted. They recommended conservative treatment, to which the patient responded well. - Additional Information Resuscitation Status: Full Code Discharge Diet: Regular Discharge Activity: Activity As Tolerated Home Medications: Amlodipine Besylate [Norvasc 2.5 mg Tablet] 1 tab PO DAILY 10/08/18 Folic Acid [Folvite 1 mg Tablet] 1 mg PO DAILY tablet 10/12/18 Thiamine HCl [Thiamine 100 mg Tablet] 100 mg PO DAILY tablet 10/12/18 History of Present Illness History of Present Illness: CLAUDIO LEOS is a 57 year old male with a PMH of HTN and alcoholic pancreatitis. He presented to [facility] ED for abdominal pain. The patient reports he was drinking heavily on Wednesday and Wednesday, developed abdominal pain and Wednesday. The pain was so bad this morning (Wednesday), it prompted him to come to the emergency department. Patient has a known history of alcoholic pancreatitis, but states he usually does not have flareups, despite his daily habit of drinking 5 [employer] beers. Upon arrival to the emergency department, vital signs were WNL. Laboratory studies reveal an elevated lipase (1985) and mild hyponatremia (Na 133). CT abdomen shows recurrent pancreatic inflammatory changes, consistent with pancreatitis. One small pseudocyst unchanged when compared to previous CT. No evidence of pancreatic necrosis. Upon assessment, the patient is resting comfortably in bed on room air. is at the bedside. The patient endorses periumbilical abdominal pain radiating to bilateral lower quadrants. Abdominal exam is relatively benign. Normal bowel sounds and the patient is not tender to palpation (patient reports he is typically not TTP during his pancreatitis flareups). He endorses mild nausea, denies vomiting today. Plan to admit to hospitalist service for pancreatitis. Hospital Course Hospital Course: He was given got rest, IV fluids and antiemetics. He developed an ileus but this resolved spontaneously. He was also given vitamin supplementation and watch for withdrawal symptoms, which he fortunately did not develop. He did very well with conservative treatment. We advanced him to clear liquids which he tolerated, and then on the solid food which she also tolerated. He was strongly encouraged to quit smoking and to reduce his alcohol consumption. His labs and exam were reassuring and he was discharged in good condition. Physical Exam Vital Signs: Temp Pulse Resp BP Pulse Ox 98.4 F 77 16 139/77 H 100 10/12/18 15:52 10/12/18 15:52 10/12/18 15:52 10/12/18 15:52 10/12/18 15:52 Intake & Output 10/11/18 10/12/18 10/13/18 06:59 06:59 06:59 Intake Total 3000 600 330 Output Total 500 1150 Balance 2500 -550 330 Weight 65.1 kg General appearance: PRESENT: no acute distress, cooperative, disheveled, thin Respiratory exam: PRESENT: clear to auscultation rosa, symmetrical, unlabored. ABSENT: accessory muscle use, crackles, prolonged expiratory phas, rhonchi, tachypnea, wheezes Cardiovascular exam: PRESENT: RRR, +S1, +S2 Pulses: PRESENT: normal carotid pulses Vascular exam: PRESENT: normal capillary refill GI/Abdominal exam: PRESENT: normal bowel sounds, soft. ABSENT: distended, guarding, rebound, tenderness Extremities exam: ABSENT: clubbing, pedal edema Musculoskeletal exam: PRESENT: normal inspection. ABSENT: deformity Neurological exam: PRESENT: alert, awake, oriented to person, oriented to place, oriented to time, oriented to situation Psychiatric exam: PRESENT: appropriate affect, normal mood Skin exam: PRESENT: dry, warm Results Laboratory Results: 10/09/18 05:14 10/09/18 05:14 10/09/18 05:14 NT-Pro-B Natriuret Pep 313 Impressions: Abdomen/Pelvis CT 10/08/18 09:20 IMPRESSION: 1. Chronic or recurrent pancreatic inflammatory changes consistent with pancreatitis. At least 1 small pseudocyst or cystic mass which is also chronic and nonprogressive compared to last year. No pancreatic necrosis. 2. Ileus. KUB X-Ray 10/09/18 00:00 IMPRESSION: Diffuse gaseous distension of stomach small bowel and colon, likely an ileus Qualifiers - * PATIENT BEING DISCHARGED WITH ANY OF THE FOLLOWING DIAGNOSIS: No Acute Heart Failure Is this a Heart Failure Patient?: No Plan Time Spent: Greater than 30 Minutes
== END 2018-10-12 16:17 | disposition home or self-care (01) | DRG 439 ==
LOC: ER 08:23 → EH 13:01 → 4N 13:46
PROVIDERS: ADMIT Internal Medicine; ATTEND Internal Medicine
PROC: 0D9670Z Drainage of Stomach with Drainage Device, Via Natural or Artificial Opening (ICD-10-PCS; principal; 2018-10-09)
DX: K85.20 Alcohol induced acute pancreatitis without necrosis or infection (principal); K56.7 Ileus, unspecified; E87.1 Hypo-osmolality and hyponatremia; K86.3 Pseudocyst of pancreas; F10.20 Alcohol dependence, uncomplicated; I10 Essential (primary) hypertension; F17.210 Nicotine dependence, cigarettes, uncomplicated; J44.9 Chronic obstructive pulmonary disease, unspecified
CPT/HCPCS: 36415; 74018; 74177; 80053; 80061; 81001; 83036; 83615; 83690; 83735; 83880; 84100; 85025; 85027; 93005; 93010; 96361; 96374; 96375; 99285; J1170; J1650; J2060; J2405; J3490; J7030; J7120; S0119

== ENCOUNTER 2018-12-24 16:00 | Inpatient (IN) | payer OTHER ==
[2018-12-24] MEDS ORDERED: NORMAL SALINE 1000 ML 1,000 ML IV ONE (16:48)
[2018-12-24] MEDS ORDERED: ONDANSETRON HCL INJ/PF 4 MG/2 ML SDV IV ONE (16:50)
[2018-12-24] MEDS ORDERED: MORPHINE SULFATE 10 MG/ML INJ IV ONE (16:53)
--- NOTE | 2018-12-24 16:54 | ER Document Report ---
ED Medical Screen (RME) - General Chief Complaint: Abdominal Pain Stated Complaint: ABDOMINAL PAIN Time Seen by Provider: 12/24/18 16:33 Primary Care Provider: ANGELA CROWELL [Primary Care Provider] - Follow up as needed Notes: Patient is a 58-year-old male who presents emergency department with a chief complaint of abdominal pain. He states that it is in his left and mid abdomen. States it hurts when he coughs. He describes the pain as a throbbing pain. He has a past medical history of pancreatitis and hypertension. He takes amlodipine and vitamin B12 at home. Exam: Tender mid upper abdomen. I have greeted and performed a rapid initial assessment of this patient. A comprehensive ED assessment and evaluation of the patient, analysis of test results and completion of medical decision making process will be conducted by an additional ED providers. TRAVEL OUTSIDE OF THE [place] IN LAST 30 DAYS: No - Related Data Allergies/Adverse Reactions: No Known Allergies Allergy (Verified 12/24/18 16:01) Past Medical History - Social History Chew tobacco use (# tins/day): No - Past Medical History Cardiac Medical History: Reports: Hx Hypertension Pulmonary Medical History: Reports: Hx COPD Renal/ Medical History: Denies: Hx Peritoneal Dialysis Psychiatric Medical History: Denies: Hx Depression Past Surgical History: Reports: Hx Tonsillectomy - Immunizations Hx Diphtheria, Pertussis, Tetanus Vaccination: Yes History of Influenza Vaccine for 02/2017 - 07/2017 Season: No Physical Exam - Vital signs Vitals: Temp Pulse Resp BP Pulse Ox 98.1 F 70 20 127/69 H 98 12/24/18 16:09 12/24/18 16:09 12/24/18 16:09 12/24/18 16:09 12/24/18 16:09 Course - Vital Signs Vital signs: Temp Pulse Resp BP Pulse Ox 98.1 F 70 20 127/69 H 98 12/24/18 16:09 12/24/18 16:09 12/24/18 16:09 12/24/18 16:09 12/24/18 16:09 Doctor's Discharge - Discharge Referrals: ANGELA CROWELL [Primary Care Provider] - Follow up as needed
[2018-12-24 17:18] LABS: ABSOLUTE BASOPHILS # (AUTO) 0.1 10^3/uL (0.0-0.2); ABSOLUTE EOSINOPHILS # (AUTO) 0.1 10^3/uL (0.0-0.6); ABSOLUTE LYMPHOCYTES (AUTO) 1.5 10^3/uL (0.5-4.7); ABSOLUTE MONOCYTES (AUTO) 0.9 10^3/uL (0.1-1.4); ABSOLUTE NEUT (AUTO) 10.6 10^3/uL (1.7-8.2); BASOPHILS % (AUTO) 0.7 % (0-2); EOSINOPHILS % (AUTO) 0.7 % (0-6); HEMATOCRIT 42.4 % (37.9-51.0); HEMOGLOBIN 14.5 g/dL (13.5-17.0); LYMPHOCYTES % (AUTO) 11.6 % (13-45); MEAN CORPUSCULAR HEMOGLOBIN 32.7 pg (27.0-33.4); MEAN CORPUSCULAR HGB CONC 34.1 g/dL (32.0-36.0); MEAN CORPUSCULAR VOLUME 96 fl (80-97); MONOCYTES % (AUTO) 7.1 % (3-13); PLATELET COUNT 296 10^3/uL (150-450); RED BLOOD COUNT 4.42 10^6/uL (4.35-5.55); RED CELL DISTRIBUTION WIDTH 13.6 % (11.5-14.0); SEGMENTED NEUTROPHILS % (AUTO) 79.9 % (42-78); TOTAL CELLS COUNTED % (AUTO) 100 %; WHITE BLOOD COUNT 13.3 10^3/uL (4.0-10.5)
[2018-12-24 17:38] LABS: APPEARANCE,URINE SLIGHTLY-CLOUDY; BILIRUBIN,URINE NEGATIVE (NEGATIVE); COLOR,URINE AMBER; GLUCOSE, URINE NEGATIVE (NEGATIVE); KETONES,URINE TRACE mg/dL (NEGATIVE); LEUKOCYTE ESTERASE,URINE NEGATIVE (NEGATIVE); NITRITE,URINE NEGATIVE (NEGATIVE); PROTEIN,URINE NEGATIVE (NEGATIVE); URINE SPECIFIC GRAVITY 1.017; UROBILINOGEN,URINE NEGATIVE mg/dL (<2.0)
[2018-12-24 17:38] LABS: ALANINE AMINOTRANSFERASE 28 U/L (21-72); ALBUMIN 5.1 g/dL (3.5-5.0); ALKALINE PHOSPHATASE 73 U/L (38-126); ANION GAP 12 (5-19); ASPARTATE AMINO TRANSFERASE 47 U/L (17-59); BILIRUBIN,DIRECT 0.4 mg/dL (0.0-0.4); BLOOD UREA NITROGEN 12 mg/dL (7-20); CALCIUM 10.2 mg/dL (8.4-10.2); CARBON DIOXIDE 24 mmol/L (22-30); CHLORIDE 104 mmol/L (98-107); CREATINE KINASE 107 U/L (55-170); GLUCOSE 91 mg/dL (75-110); POTASSIUM 5.1 mmol/L (3.6-5.0); TOTAL PROTEIN 8.5 g/dL (6.3-8.2)
[2018-12-24 17:47] LABS: CREATINE KINASE MB 1.03 ng/mL (<4.55)
[2018-12-24 17:48] LABS: TROPONIN I < 0.012 ng/mL
[2018-12-24 17:52] LABS: URINE AMPHETAMINES SCREEN NEGATIVE; URINE BARBITURATES SCREEN NEGATIVE; URINE BENZODIAZEPINES SCREEN NEGATIVE; URINE COCAINE SCREEN NEGATIVE; URINE MARIJUANA (THC) SCREEN UNCONFIRMED POSITIVE; URINE METHADONE SCREEN NEGATIVE; URINE PHENCYCLIDINE SCREEN NEGATIVE
[2018-12-24 18:00] LABS: ALCOHOL < 10 mg/dL (NONE DETECTED)
[2018-12-24] MEDS ORDERED: RINGERS SOLUTION,LACTATED 1,000 ML IV ONE (18:35)
--- NOTE | 2018-12-24 18:35 | ER Document Report ---
ED General - General Chief Complaint: Abdominal Pain Stated Complaint: ABDOMINAL PAIN Time Seen by Provider: 12/24/18 16:33 Primary Care Provider: ANGELA CROWELL [Primary Care Provider] - Follow up as needed Notes: Patient is a 58-year-old male that presents to the emergency department for chief complaint of epigastric abdominal pain. Patient states that he had pancreatitis in the past most recently in September, is alcohol induced, he has had nausea, epigastric pain is gotten worse since early this morning around 2 AM, de scribes as a sharp stabbing constant pain that radiates towards the back, denies any vomiting yet. He has not had a bowel movement, denies having any diarrhea. He states he took his blood pressure at home and it was low earlier today but he did take his home blood pressure medication. Denies having any chest pain, shortness of breath, difficulty breathing, dysuria, hematuria, no other complaints at this time. He currently rates his pain as a 9 out of 10, describes it as constant and stabbing as noted above. Past Medical History: Pancreatitis, hypertension Past Surgical History: Denies surgical history Social History: Admits to smoking cigarettes daily, former daily alcohol use, quit about a month and a half ago, denies illicit drug use. He is a [facility] patient Family History: Reviewed and noncontributory for presenting illness Allergies: Reviewed, see documented allergy list. REVIEW OF SYSTEMS: Other than noted above, the 12 point review of systems was reviewed with the patient and were negative, all pertinent findings are included in the HPI. PHYSICAL EXAMINATION: Vital signs reviewed, nursing noted reviewed. GENERAL: Patient appears older than stated age, and appears uncomfortable on exam and in pain HEAD: Atraumatic, normocephalic. EYES: Eyes appear normal, extraocular movements intact, sclera anicteric, conjunctiva are normal. ENT: nares patent, oropharynx clear without exudates. Moist mucous membranes. NECK: Normal range of motion, supple without lymphadenopathy LUNGS: Breath sounds clear to auscultation bilaterally and equal. No wheezes rales or rhonchi. HEART: Regular rate and rhythm without murmurs ABDOMEN: Soft, significant epigastric tenderness to palpation on exam, negative Webb sign, normoactive bowel sounds. No rebound, guarding, or rigidity. No masses appreciated. EXTREMITIES: Nontender, good range of motion, no pitting or edema. NEUROLOGICAL: No focal neurological deficits. Moves all extremities spontaneously Motor and sensory grossly intact on exam. PSYCH: Normal mood, normal affect. SKIN: Warm, Dry, normal turgor, no rashes or lesions noted on exposed skin TRAVEL OUTSIDE OF THE [place] IN LAST 30 DAYS: No - Related Data Allergies/Adverse Reactions: No Known Allergies Allergy (Verified 12/24/18 16:01) Past Medical History - Social History Smoking Status: Current Every Day Smoker Chew tobacco use (# tins/day): No Family History: None, COPD, Malignancy - father Patient has suicidal ideation: No Patient has homicidal ideation: No - Past Medical History Cardiac Medical History: Reports: Hx Hypertension Pulmonary Medical History: Reports: Hx COPD Renal/ Medical History: Denies: Hx Peritoneal Dialysis Psychiatric Medical History: Denies: Hx Depression Past Surgical History: Reports: Hx Tonsillectomy - Immunizations Hx Diphtheria, Pertussis, Tetanus Vaccination: Yes Physical Exam - Vital signs Vitals: Temp Pulse Resp BP Pulse Ox 98.1 F 70 20 127/69 H 98 12/24/18 16:09 12/24/18 16:09 12/24/18 16:09 12/24/18 16:09 12/24/18 16:09 Course - Re-evaluation Re-evalutation: Patient seen and examined vital signs reviewed. Laboratory data and imaging were ordered as appropriate for the patient's presenting symptoms and complaint, with consideration of any critical or life threatening conditions that may be associated with their obtained history and exam as noted above. Patient was treated with IV fluids, IV analgesics and antiemetics Results were reviewed when available and demonstrated markedly elevated lipase, greater than 9600, he had a mild leukocytosis of 13,000 and a very mild hyperkalemia of 5.1, patient was given fluids as noted, and pain medication which did seem to improve his symptoms. The patient was re-evaluated and was stable but still having some pain Evaluation was most consistent with acute pancreatitis, will admit to the hospital due to significant elevation in lipase, nausea, and abdominal pain for pain control IV fluids, he did have a right upper quadrant ultrasound, demonstrated normal-appearing gallbladder, without concern for gallstones, or cholecystitis. Results were discussed with the patient at this point after careful consideration I feel that that patient should be admitted to the hospital. This was discussed with the patient that it is in the best interest for their care to be admitted for further evaluation and management. Patient agreed with this plan of care. A call was placed to the admitting physician, Dr. Fonseca who graciously accepted the patient onto their service. *Note is created using voice recognition software and may contain spelling, syntax or grammatical errors. Laboratory 12/24/18 12/24/18 12/24/18 17:00 17:00 17:00 WBC 13.3 H RBC 4.42 Hgb 14.5 Hct 42.4 MCV 96 MCH 32.7 MCHC 34.1 RDW 13.6 Plt Count 296 Seg Neutrophils % 79.9 H Lymphocytes % 11.6 L Monocytes % 7.1 Eosinophils % 0.7 Basophils % 0.7 Absolute Neutrophils 10.6 H Absolute Lymphocytes 1.5 Absolute Monocytes 0.9 Absolute Eosinophils 0.1 Absolute Basophils 0.1 Sodium 140.2 Potassium 5.1 H Chloride 104 Carbon Dioxide 24 Anion Gap 12 BUN 12 Creatinine 0.64 Est GFR ( Amer) > 60 Est GFR (Non-Af Amer) > 60 Glucose 91 Calcium 10.2 Total Bilirubin 1.0 Direct Bilirubin 0.4 Neonat Total Bilirubin Not Reportable Neonat Direct Bilirubin Not Reportable Neonat Indirect Bili Not Reportable AST 47 ALT 28 Alkaline Phosphatase 73 Creatine Kinase 107 CK-MB (CK-2) 1.03 Troponin I < 0.012 Total Protein 8.5 H Albumin 5.1 H Lipase 9693.5 H Urine Color Urine Appearance Urine pH Ur Specific [place] Urine Protein Urine Glucose (UA) Urine Ketones Urine Blood Urine Nitrite Urine Bilirubin Urine Urobilinogen Ur Leukocyte Esterase Urine WBC (Auto) Urine RBC (Auto) Squamous Epi Cells Auto Urine Mucus (Auto) Urine Ascorbic Acid Urine Opiates Screen Urine Methadone Screen Ur Barbiturates Screen Ur Phencyclidine Scrn Ur Amphetamines Screen U Benzodiazepines Scrn Urine Cocaine Screen U Marijuana (THC) Screen Serum Alcohol < 10 12/24/18 12/24/18 17:17 17:17 WBC RBC Hgb Hct MCV MCH MCHC RDW Plt Count Seg Neutrophils % Lymphocytes % Monocytes % Eosinophils % Basophils % Absolute Neutrophils Absolute Lymphocytes Absolute Monocytes Absolute Eosinophils Absolute Basophils Sodium Potassium Chloride Carbon Dioxide Anion Gap BUN Creatinine Est GFR ( Amer) Est GFR (Non-Af Amer) Glucose Calcium Total Bilirubin Direct Bilirubin Neonat Total Bilirubin Neonat Direct Bilirubin Neonat Indirect Bili AST ALT Alkaline Phosphatase Creatine Kinase CK-MB (CK-2) Troponin I Total Protein Albumin Lipase Urine Color LELO Urine Appearance SLIGHTLY-CLOUDY Urine pH 6.0 Ur Specific [place] 1.017 Urine Protein NEGATIVE Urine Glucose (UA) NEGATIVE Urine Ketones TRACE H Urine Blood NEGATIVE Urine Nitrite NEGATIVE Urine Bilirubin NEGATIVE Urine Urobilinogen NEGATIVE Ur Leukocyte Esterase NEGATIVE Urine WBC (Auto) 5 Urine RBC (Auto) 1 Squamous Epi Cells Auto <1 Urine Mucus (Auto) RARE Urine Ascorbic Acid NEGATIVE Urine Opiates Screen NEGATIVE Urine Methadone Screen NEGATIVE Ur Barbiturates Screen NEGATIVE Ur Phencyclidine Scrn NEGATIVE Ur Amphetamines Screen NEGATIVE U Benzodiazepines Scrn NEGATIVE Urine Cocaine Screen NEGATIVE U Marijuana (THC) Screen UNCONFIRMED POSITIVE Serum Alcohol - Vital Signs Vital signs: Temp Pulse Resp BP Pulse Ox 98.1 F 70 20 127/69 H 99 12/24/18 16:09 12/24/18 16:09 12/24/18 16:09 12/24/18 16:09 12/24/18 17:05 - Laboratory Result Diagrams: 12/24/18 17:00 12/24/18 17:00 Laboratory results interpreted by me: 12/24/18 12/24/18 12/24/18 17:00 17:00 17:17 WBC 13.3 H Seg Neutrophils % 79.9 H Lymphocytes % 11.6 L Absolute Neutrophils 10.6 H Potassium 5.1 H Total Protein 8.5 H Albumin 5.1 H Lipase 9693.5 H Urine Ketones TRACE H Discharge - Discharge Clinical Impression: Acute pancreatitis Qualifiers: Pancreatitis type: unspecified pancreatitis type Acute pancreatitis complication: unspecified Qualified Code(s): K85.90 - Acute pancreatitis without necrosis or infection, unspecified Leukocytosis Qualifiers: Leukocytosis type: unspecified Qualified Code(s): D72.829 - Elevated white blood cell count, unspecified Condition: Stable Disposition: ADMITTED INPATIENT Admitting Provider: Raymundo (Hospitalist) Unit Admitted: Medical Floor [facility]errals[facility] [[facility]] - Follow up as needed
[2018-12-24] MEDS ORDERED: HYDROMORPHONE HCL INJ/PF 2 MG/ML AMPULE IV ONE (18:36)
--- NOTE | 2018-12-24 21:29 | RADIOLOGY REPORT (SQ) ---
EXAM DESCRIPTION: US ABDOMEN LIMITED COMPLETED DATE/TME: 12/24/2018 18:35 CLINICAL HISTORY: 58 years Male pancreatitis, ruq abdominal pain COMPARISON: None. TECHNIQUE: Transabdominal grayscale imaging were performed to evaluate the right upper quadrant. FINDINGS: Aorta is normal in caliber. The pancreas is not well seen secondary to bowel gas. Liver is unremarkable. Portal vein is hepatopedal in direction. Common duct measures 6 mm which is within normal limits for the patient's age. No evidence of sludge or stones of the gallbladder. Unremarkable right kidney. No free fluid is noted. IMPRESSION: No evidence of acute process Limited evaluation of the pancreas secondary to bowel gas
[2018-12-24] MEDS ORDERED: MAG HYDROX/AL HYDROX/SIMETH SUSP 30 ML UDCUP PO PRN (22:19)
[2018-12-24] MEDS ORDERED: MAGNESIUM HYDROXIDE SUSP 30 ML UDCUP PO PRN (22:19)
[2018-12-24] MEDS ORDERED: LEVALBUTEROL HCL NEB 0.63 MG/3 ML AMPUL NEB PRN (22:19)
[2018-12-24] MEDS ORDERED: ONDANSETRON HCL INJ/PF 4 MG/2 ML SDV IV PRN (22:19)
[2018-12-24] MEDS ORDERED: ACETAMINOPHEN 325 MG TABLET PO PRN (22:24)
[2018-12-24] MEDS ORDERED: ACETAMINOPHEN 650 MG SUPP.RECT PR PRN (22:24)
[2018-12-24] MEDS ORDERED: NICOTINE 21 MG/24 HR PATCH.TD24 TD PRN (22:24)
[2018-12-24] MEDS ORDERED: MORPHINE SULFATE 10 MG/ML INJ IV PRN ×2 (22:24→22:38)
[2018-12-24] MEDS ORDERED: METOPROLOL TARTRATE PF/INJ 5 MG/5 ML SDV IV PRN (22:24)
[2018-12-24] MEDS ORDERED: HYDRALAZINE HCL INJ/PF 20 MG/1 ML SDV IV PRN (22:24)
[2018-12-24] MEDS: MORPHINE SULFATE 10 MG/ML INJ IV PRN (22:56)
--- NOTE | 2018-12-24 23:24 | EKG REPORT ---
SEVERITY:- ABNORMAL ECG - SINUS RHYTHM LEFT ANTERIOR FASCICULAR BLOCK : Confirmed by: Lizzy Patino 24-Dec-2018 23:23:39
[2018-12-24 23:29] LABS: FREE T3 3.84 pg/mL (2.77-5.27); FREE T4 (FREE THYROXINE) 1.19 ng/dL (0.78-2.19)
[2018-12-24 23:42] LABS: THYROID STIMULATING HORMONE 2.47 uIU/mL (0.47-4.68)
--- NOTE | 2018-12-25 00:20 | PDOC H&P ---
History of Present Illness Admission Date/PCP: 12/24/18 20:51 [facility] Patient complains of: Abdominal pain History of Present Illness: CLAUDIO MARSHALL is a 58 year old male who presented to the emergency room with acute abdominal pain. Patient admits sudden onset of abdominal pain at 2 AM waking him from sleep. The pain persisted through the day and he subsequently presented to the emergency room suspecting that he was having another flareup of pancreatitis. He states he has not been drinking for 1 month although he continues to smoke. He describes the pain as a constant, severe throbbing in his upper abdomen with radiation through to his back. The pain is made worse by eating or drinking and has been accompanied by nausea without vomiting. He admits several prior similar episodes due to alcoholic pancreatitis and has not identified any additional aggravating or ameliorating factors for his abdominal pain. In the emergency room he was found to have an elevated serum lipase of 9600, a leukocytosis and a right upper abdominal ultrasound which was negative for stones or evidence of biliary obstruction. Patient was subsequently admitted to the hospital for further evaluation and treatment. Past Medical History Cardiac Medical History: Reports: Hypertension Denies: Coronary Artery Disease, Peripheral Vascular Disease Pulmonary Medical History: Reports: Chronic Obstructive Pulmonary Disease (COPD) Denies: Asthma EENT Medical History: Denies: Cataracts, Ears - Hearing aids Neurological Medical History: Denies: Hemorrhagic CVA, Ischemic CVA, Multiple Sclerosis, Seizures Endocrine Medical History: Denies: Diabetes Mellitus Type 1, Diabetes Mellitus Type 2, Hyperthyroidism, Hypothyroidism Renal/ Medical History: Denies: Chronic Kidney Disease, Nephrolithiasis Malignancy Medical History: Reports: None GI Medical History: Reports: Other - Alcoholic pancreatitis Denies: Cirrhosis, Hepatitis Musculoskeltal Medical History: Denies: Arthritis, Gout Skin Medical History: Denies: Eczema, Psoriasis Psychiatric Medical History: Reports: Alcohol Dependency, Substance Abuse, Tobacco Dependency Denies: Depression Traumatic Medical History: Reports: None Hematology: Denies: Anemia, Bleeding Tendencies Infectious Medical History: Reports: None Past Surgical History Past Surgical History: Reports: Tonsillectomy Social History Information Source: Patient Smoking Status: Current Every Day Smoker Frequency of Alcohol Use: None - History of heavy alcohol use in the past but has not consumed alcohol for more than a month Hx Recreational Drug Use: Yes Drugs: Marijuana Hx Prescription Drug Abuse: No - Advance Directive Resuscitation Status: Full Code Surrogate healthcare decision maker:: Mackenzie Marshall Family History Family History: COPD, Malignancy - father Parental Family History Reviewed: Yes Children Family History Reviewed: No Sibling(s) Family History Reviewed.: Yes Medication/Allergy Home Medications: Amlodipine Besylate [Norvasc 2.5 mg Tablet] 1 tab PO DAILY 10/08/18 Folic Acid [Folvite 1 mg Tablet] 1 mg PO DAILY tablet 10/12/18 Thiamine HCl [Thiamine 100 mg Tablet] 100 mg PO DAILY tablet 10/12/18 Allergies/Adverse Reactions: No Known Allergies Allergy (Verified 12/24/18 16:01) Review of Systems Constitutional: ABSENT: chills, fever(s) Eyes: ABSENT: visual disturbances, other - Eye pain Ears: ABSENT: hearing changes, other - Ear pain Nose, Mouth, and Throat: ABSENT: mouth pain, sore throat Cardiovascular: ABSENT: chest pain, palpitations Respiratory: ABSENT: cough, dyspnea Gastrointestinal: PRESENT: as per HPI, abdominal pain, nausea. ABSENT: constipation, diarrhea, vomiting Genitourinary: ABSENT: dysuria, hematuria Musculoskeletal: ABSENT: back pain, joint swelling, muscle weakness Integumentary: ABSENT: pruritus, rash Neurological: ABSENT: confusion, convulsions, focal weakness, memory loss, syn cope Psychiatric: ABSENT: anxiety, depression Endocrine: ABSENT: cold intolerance, heat intolerance Hematologic/Lymphatic: ABSENT: easy bleeding, easy bruising Physical Exam Vital Signs: Temp Pulse Resp BP Pulse Ox 98.1 F 70 20 118/73 92 12/24/18 16:09 12/24/18 16:09 12/24/18 21:01 12/24/18 21:00 12/24/18 21:01 Intake & Output 12/22/18 12/23/18 12/24/18 23:59 23:59 23:59 Intake Total 1999 Balance 1999 Weight 58.9 kg General appearance: PRESENT: cooperative, mild distress - Secondary to abdominal pain Head exam: PRESENT: atraumatic, normocephalic Eye exam: PRESENT: conjunctiva pink. ABSENT: conjunctival injection, scleral icterus Ear exam: PRESENT: normal external ear exam. ABSENT: bleeding, drainage Mouth exam: PRESENT: dry mucosa, neck supple Neck exam: ABSENT: JVD, thyromegaly, tracheal deviation Respiratory exam: PRESENT: clear to auscultation rosa, symmetrical, unlabored Cardiovascular exam: PRESENT: RRR. ABSENT: clicks, gallop, rubs Pulses: PRESENT: normal radial pulses, normal dorsalis pedis pul Vascular exam: PRESENT: normal capillary refill. ABSENT: pallor GI/Abdominal exam: PRESENT: normal bowel sounds, soft. ABSENT: rebound, rigid, tenderness Rectal exam: PRESENT: deferred Extremities exam: ABSENT: joint swelling, pedal edema Musculoskeletal exam: PRESENT: full ROM, normal inspection. ABSENT: tenderness Neurological exam: PRESENT: alert, oriented to person, oriented to place, oriented to time, oriented to situation, CN II-XII grossly intact. ABSENT: motor sensory deficit Psychiatric exam: PRESENT: appropriate affect, normal mood Skin exam: PRESENT: dry, intact, warm. ABSENT: jaundice, rash, urticaria Results Laboratory Results: 12/24/18 17:00 12/24/18 17:00 12/24/18 12/24/18 12/24/18 17:00 17:00 17:17 WBC 13.3 H RBC 4.42 Hgb 14.5 Hct 42.4 MCV 96 MCH 32.7 MCHC 34.1 RDW 13.6 Plt Count 296 Seg Neutrophils % 79.9 H Lymphocytes % 11.6 L Monocytes % 7.1 Eosinophils % 0.7 Basophils % 0.7 Absolute Neutrophils 10.6 H Absolute Lymphocytes 1.5 Absolute Monocytes 0.9 Absolute Eosinophils 0.1 Absolute Basophils 0.1 Sodium 140.2 Potassium 5.1 H Chloride 104 Carbon Dioxide 24 Anion Gap 12 BUN 12 Creatinine 0.64 Est GFR ( Amer) > 60 Est GFR (Non-Af Amer) > 60 Glucose 91 Calcium 10.2 Total Bilirubin 1.0 AST 47 ALT 28 Alkaline Phosphatase 73 Total Protein 8.5 H Albumin 5.1 H Lipase 9693.5 H Urine Color LELO Urine Appearance SLIGHTLY-CLOUDY Urine pH 6.0 Ur Specific [place] 1.017 Urine Protein NEGATIVE Urine Glucose (UA) NEGATIVE Urine Ketones TRACE H Urine Blood NEGATIVE Urine Nitrite NEGATIVE Ur Leukocyte Esterase NEGATIVE Urine WBC (Auto) 5 Urine RBC (Auto) 1 12/24/18 12/24/18 17:00 17:00 Creatine Kinase 107 CK-MB (CK-2) 1.03 Troponin I < 0.012 Impressions: Abdomen Ultrasound 12/24/18 18:35 IMPRESSION: No evidence of acute process Limited evaluation of the pancreas secondary to bowel gas Assessment and Plan - Diagnosis (1) Recurrent pancreatitis Is this a current diagnosis for this admission?: Yes Plan: Patient be treated with symptomatic and supportive cares. This will include IV fluids. Patient will be started on oral diet beginning in the morning with supplementation for pancreatic enzymes (Pancreaze) and increased GI motility a gents (Reglan) to enable a more rapid recovery from his pancreatitis. Pain will be treated with morphine sulfate 2 to 4 mg IV every 2 hours on a as needed basis via sliding scale. Daily laboratories will include a CBC, metabolic profile, magnesium level, lipase and amylase. A CT scan of the abdomen will be obtained. (2) COPD (chronic obstructive pulmonary disease) Qualifiers: COPD type: unspecified COPD Qualified Code(s): J44.9 - Chronic obstructive pulmonary disease, unspecified Is this a current diagnosis for this admission?: Yes Plan: Patient will be treated for COPD utilizing his usual medications or a suitable formulary substitution thereof. His respiratory status will be monitored throughout his hospital course with frequent O2 sat monitoring. (3) Hypertension Qualifiers: Hypertension type: essential hypertension Qualified Code(s): I10 - Essential (primary) hypertension Is this a current diagnosis for this admission?: Yes Plan: Patient will be continued on his usual antihypertensive regiment as soon as he is able to take it orally. His blood pressure monitored closely throughout his hospital course. Until he is able to take oral medications hydralazine 20 mg IV every 4 hours and or metoprolol 5 mg IV every 4 hours will be given to maintain a blood pressure less than 160/100. (4) Tobacco dependence Is this a current diagnosis for this admission?: Yes Plan: Smoking cessation has been advised and has been counseled briefly at the bedside. A nicotine replacement patch is available for the patient's use. - Time Time Spent with patient: 25-34 minutes Smoking Cessation Education: 3 to 10 minutes Medications reviewed and adjusted accordingly: Yes Anticipated discharge: Home - Inpatient Certification Based on my medical assessment, after consideration of the patient's comorbidities, presenting symptoms, or acuity I expect that the services needed warrant INPATIENT care.: Yes I certify that my determination is in accordance with my understanding of Medicare's requirements for reasonable and necessary INPATIENT services [42 CFR 412.3e].: Yes Medical Necessity: Need Close Monitoring Due to Risk of Patient Decompensation, Need For IV Fluids, Need for Pain Control, Risk of Complication if Not Cared For in Hospital
--- NOTE | 2018-12-25 00:23 | ADVANCED CARE ---
- Diagnosis (1) Recurrent pancreatitis Diagnosis Current: Yes (2) COPD (chronic obstructive pulmonary disease) Diagnosis Current: Yes (3) Hypertension Diagnosis Current: Yes (4) Tobacco dependence Diagnosis Current: Yes Attendance: The patient and myself. Resuscitation Status: Full Code Discussion: After brief discussion with patient indicates that he wishes to remain full code for resuscitation status purposes during this hospital course. He has named Mackenzie Marshall his as his designated surrogate medical decision-maker. Care Planning Goals: 1. Patient is full CODE STATUS for the current admission. 2. Mackenzie Marshall is his designated surrogate medical decision-maker. Document(s) Completed: The following entries will be made to the patient's current medical record, current orders and permanent medical record via EMR entry: 1. Patient is full CODE STATUS for the current admission. 2. Mackenzie Marshall is his designated surrogate medical decision-maker. Time Spent: 3 minutes
[2018-12-25] MEDS: MORPHINE SULFATE 10 MG/ML INJ IV PRN ×5 (00:56→20:23)
[2018-12-25] MEDS: RINGERS SOLUTION,LACTATED 1,000 ML IV PRN ×4 (04:20→21:44)
[2018-12-25] MEDS: HEPARIN SOD (PORCINE) 5,000 UNIT/ML 1 ML VIAL SUBCUT SCH ×3 (05:33→21:25)
[2018-12-25] MEDS: PANTOPRAZOLE SODIUM 40 MG TABLET.DR PO SCH ×2 (05:57→17:15)
[2018-12-25 06:09] LABS: HEMATOCRIT 36.3 % (37.9-51.0); MEAN CORPUSCULAR HEMOGLOBIN 32.8 pg (27.0-33.4); MEAN CORPUSCULAR HGB CONC 34.3 g/dL (32.0-36.0); MEAN CORPUSCULAR VOLUME 96 fl (80-97); PLATELET COUNT 224 10^3/uL (150-450); RED BLOOD COUNT 3.79 10^6/uL (4.35-5.55); RED CELL DISTRIBUTION WIDTH 13.6 % (11.5-14.0)
[2018-12-25 06:15] LABS: HEMOGLOBIN 12.4 g/dL (13.5-17.0)
[2018-12-25 06:23] LABS: AMYLASE 690 U/L (30-110); ANION GAP 5 (5-19); BLOOD UREA NITROGEN 9 mg/dL (7-20); CALCIUM 8.7 mg/dL (8.4-10.2); CARBON DIOXIDE 27 mmol/L (22-30); CHLORIDE 108 mmol/L (98-107); CHOLESTEROL 95.79 mg/dL (0-200); GLUCOSE 86 mg/dL (75-110); POTASSIUM 4.6 mmol/L (3.6-5.0); TRIGLYCERIDES 53 mg/dL (<150)
[2018-12-25 06:40] LABS: DIRECT LDL 53 mg/dL (<100)
[2018-12-25] MEDS: METOCLOPRAMIDE HCL 10 MG TABLET PO SCH ×4 (08:30→21:31)
[2018-12-25] MEDS: LIPASE/PROTEASE/AMYLASE 1 CAP CAPSULE.DR PO SCH ×3 (08:45→17:15)
[2018-12-25] MEDS: FOLIC ACID 1 MG TABLET PO SCH (09:21)
[2018-12-25] MEDS: THIAMINE HCL 100 MG TABLET PO SCH (09:21)
[2018-12-25] MEDS: DOCUSATE SODIUM 100 MG/10 ML UDC PO SCH ×2 (09:23→17:15)
--- NOTE | 2018-12-25 14:25 | Progress Note Acknowledgement ---
Progress Note Acknowledgement Progess Note Acknowledgement: I, the undersigned member of the medical staff with appropriate privileges and with supervisory authority over [ PAC ], a dependent practice allied health professional, acknowledge that I have reviewed the progress notes entered on this patient, and in my professional judgment believe that the assessment made and/or any care evidenced was appropriate
[2018-12-25] MEDS: AMLODIPINE BESYLATE 10 MG TABLET PO SCH (21:28)
[2018-12-26] MEDS: MORPHINE SULFATE 10 MG/ML INJ IV PRN ×3 (02:31→22:46)
[2018-12-26] MEDS: RINGERS SOLUTION,LACTATED 1,000 ML IV PRN ×2 (04:20→09:58)
[2018-12-26] MEDS: HEPARIN SOD (PORCINE) 5,000 UNIT/ML 1 ML VIAL SUBCUT SCH ×3 (05:44→22:17)
[2018-12-26] MEDS: PANTOPRAZOLE SODIUM 40 MG TABLET.DR PO SCH ×2 (05:46→16:23)
[2018-12-26 06:37] LABS: HEMATOCRIT 33.9 % (37.9-51.0); HEMOGLOBIN 11.6 g/dL (13.5-17.0); MEAN CORPUSCULAR HEMOGLOBIN 32.5 pg (27.0-33.4); MEAN CORPUSCULAR HGB CONC 34.3 g/dL (32.0-36.0); MEAN CORPUSCULAR VOLUME 95 fl (80-97); PLATELET COUNT 217 10^3/uL (150-450); RED BLOOD COUNT 3.57 10^6/uL (4.35-5.55); RED CELL DISTRIBUTION WIDTH 13.5 % (11.5-14.0); WHITE BLOOD COUNT 8.5 10^3/uL (4.0-10.5)
[2018-12-26 07:00] LABS: AMYLASE 217 U/L (30-110); ANION GAP 6 (5-19); BLOOD UREA NITROGEN 6 mg/dL (7-20); CALCIUM 8.7 mg/dL (8.4-10.2); CARBON DIOXIDE 28 mmol/L (22-30); CHLORIDE 106 mmol/L (98-107); GLUCOSE 86 mg/dL (75-110); POTASSIUM 4.5 mmol/L (3.6-5.0)
[2018-12-26] MEDS: METOCLOPRAMIDE HCL 10 MG TABLET PO SCH ×4 (08:21→22:17)
[2018-12-26] MEDS: LIPASE/PROTEASE/AMYLASE 1 CAP CAPSULE.DR PO SCH ×3 (08:21→16:23)
[2018-12-26] MEDS: DOCUSATE SODIUM 100 MG/10 ML UDC PO SCH (09:57)
[2018-12-26] MEDS: THIAMINE HCL 100 MG TABLET PO SCH (09:57)
[2018-12-26] MEDS: FOLIC ACID 1 MG TABLET PO SCH (09:57)
[2018-12-26] MEDS ORDERED: ONDANSETRON HCL INJ/PF 4 MG/2 ML SDV IV PRN (14:30)
--- NOTE | 2018-12-26 15:14 | PDOC PROGRESS REPORT ---
Subjective Progress Note for:: 12/25/18 Subjective:: 58-year-old male who was admitted last night secondary to pancreatitis she states she has had no alcohol in several months possibly since July of this year patient comes in with another episode of pancreatitis. Ultrasound last night showed no acute process. Patient's lipase last night was 9693 today it is 3119 is improved. Patient's other lab values are normal. Patient will be kept on clear liquids only IV fluids IV pain medication reassess daily patient is also on Pancrease as well as Reglan patient has no vomiting no fever. She is vital signs are stable. Reason For Visit: ACUTE RECURRENT PANCREATITIS Physical Exam Vital Signs: Temp Pulse Resp BP Pulse Ox 98.4 F 65 16 99/55 L 97 12/25/18 11:01 12/25/18 11:01 12/25/18 11:01 12/25/18 11:01 12/25/18 11:01 Intake & Output 12/24/18 12/25/18 12/26/18 06:59 06:59 06:59 Intake Total 1999 2709 Balance 1999 2709 Weight 63 kg General appearance: PRESENT: no acute distress, well-developed, well-nourished Head exam: PRESENT: atraumatic, normocephalic Respiratory exam: PRESENT: clear to auscultation rosa. ABSENT: rales, rhonchi, wheezes Cardiovascular exam: PRESENT: RRR. ABSENT: diastolic murmur, rubs, systolic murmur GI/Abdominal exam: PRESENT: hyperactive bowel sounds, tenderness - Generalized Neurological exam: PRESENT: alert, awake, oriented to person, oriented to place, oriented to time, oriented to situation, CN II-XII grossly intact. ABSENT: motor sensory deficit Psychiatric exam: PRESENT: appropriate affect, normal mood. ABSENT: homicidal ideation, suicidal ideation Results Laboratory Results: 12/25/18 05:27 12/25/18 05:27 12/24/18 12/24/18 12/24/18 17:00 17:00 17:00 WBC 13.3 H RBC 4.42 Hgb 14.5 Hct 42.4 MCV 96 MCH 32.7 MCHC 34.1 RDW 13.6 Plt Count 296 Seg Neutrophils % 79.9 H Lymphocytes % 11.6 L Monocytes % 7.1 Eosinophils % 0.7 Basophils % 0.7 Absolute Neutrophils 10.6 H Absolute Lymphocytes 1.5 Absolute Monocytes 0.9 Absolute Eosinophils 0.1 Absolute Basophils 0.1 Sodium 140.2 Potassium 5.1 H Chloride 104 Carbon Dioxide 24 Anion Gap 12 BUN 12 Creatinine 0.64 Est GFR ( Amer) > 60 Est GFR (Non-Af Amer) > 60 Glucose 91 Calcium 10.2 Magnesium Total Bilirubin 1.0 AST 47 ALT 28 Alkaline Phosphatase 73 Total Protein 8.5 H Albumin 5.1 H Triglycerides Cholesterol LDL Cholesterol Direct VLDL Cholesterol HDL Cholesterol Amylase Lipase 9693.5 H TSH 2.47 Free T4 1.19 Free T3 pg/mL 3.84 Urine Color Urine Appearance Urine pH Ur Specific [place] Urine Protein Urine Glucose (UA) Urine Ketones Urine Blood Urine Nitrite Ur Leukocyte Esterase Urine WBC (Auto) Urine RBC (Auto) 12/24/18 12/25/18 12/25/18 17:17 05:27 05:27 WBC 9.0 RBC 3.79 L Hgb 12.4 L D Hct 36.3 L MCV 96 MCH 32.8 MCHC 34.3 RDW 13.6 Plt Count 224 Seg Neutrophils % Lymphocytes % Monocytes % Eosinophils % Basophils % Absolute Neutrophils Absolute Lymphocytes Absolute Monocytes Absolute Eosinophils Absolute Basophils Sodium 140.0 Potassium 4.6 Chloride 108 H Carbon Dioxide 27 Anion Gap 5 BUN 9 Creatinine 0.66 Est GFR ( Amer) > 60 Est GFR (Non-Af Amer) > 60 Glucose 86 Calcium 8.7 Magnesium 1.8 Total Bilirubin AST ALT Alkaline Phosphatase Total Protein Albumin Triglycerides 53 Cholesterol 95.79 LDL Cholesterol Direct 53 VLDL Cholesterol 11.0 HDL Cholesterol 39 L Amylase 690 H Lipase 3119.6 H TSH Free T4 Free T3 pg/mL Urine Color LELO Urine Appearance SLIGHTLY-CLOUDY Urine pH 6.0 Ur Specific [place] 1.017 Urine Protein NEGATIVE Urine Glucose (UA) NEGATIVE Urine Ketones TRACE H Urine Blood NEGATIVE Urine Nitrite NEGATIVE Ur Leukocyte Esterase NEGATIVE Urine WBC (Auto) 5 Urine RBC (Auto) 1 12/24/18 12/24/18 17:00 17:00 Creatine Kinase 107 CK-MB (CK-2) 1.03 Troponin I < 0.012 Impressions: Abdomen Ultrasound 12/24/18 18:35 IMPRESSION: No evidence of acute process Limited evaluation of the pancreas secondary to bowel gas Assessment and Plan - Diagnosis (1) Acute pancreatitis Qualifiers: Pancreatitis type: unspecified pancreatitis type Acute pancreatitis complication: unspecified Qualified Code(s): K85.90 - Acute pancreatitis without necrosis or infection, unspecified Is this a current diagnosis for this admission?: Yes Plan: 12/25/2018 patient will be kept on clear liquids, IV fluids, IV pain medication. (2) Leukocytosis Qualifiers: Leukocytosis type: unspecified Qualified Code(s): D72.829 - Elevated white blood cell count, unspecified Is this a current diagnosis for this admission?: Yes Plan: 12/25/2018 white count last night was 13.3 today is 9000 (3) Abdominal pain Qualifiers: Abdominal location: epigastric Qualified Code(s): R10.13 - Epigastric pain Is this a current diagnosis for this admission?: Yes Plan: 12/25/2018 patient's abdominal pain is much less than last night (4) Alcohol dependence Qualifiers: Complication of substance-induced condition: uncomplicated Is this a current diagnosis for this admission?: No - Time Time Spent with patient: 15-24 minutes
[2018-12-26] MEDS: DOCUSATE SODIUM 100 MG CAPSULE PO SCH (17:50)
[2018-12-26] MEDS: AMLODIPINE BESYLATE 10 MG TABLET PO SCH (22:17)
[2018-12-27] MEDS: MORPHINE SULFATE 10 MG/ML INJ IV PRN (03:02)
[2018-12-27] MEDS: PANTOPRAZOLE SODIUM 40 MG TABLET.DR PO SCH (06:06)
[2018-12-27] MEDS: HEPARIN SOD (PORCINE) 5,000 UNIT/ML 1 ML VIAL SUBCUT SCH ×2 (06:06→13:08)
[2018-12-27 06:19] LABS: HEMATOCRIT 35.4 % (37.9-51.0); HEMOGLOBIN 12.2 g/dL (13.5-17.0); MEAN CORPUSCULAR HEMOGLOBIN 32.5 pg (27.0-33.4); MEAN CORPUSCULAR HGB CONC 34.4 g/dL (32.0-36.0); MEAN CORPUSCULAR VOLUME 95 fl (80-97); PLATELET COUNT 233 10^3/uL (150-450); RED BLOOD COUNT 3.74 10^6/uL (4.35-5.55); RED CELL DISTRIBUTION WIDTH 13.4 % (11.5-14.0); WHITE BLOOD COUNT 7.5 10^3/uL (4.0-10.5)
[2018-12-27 06:47] LABS: AMYLASE 107 U/L (30-110); ANION GAP 8 (5-19); BLOOD UREA NITROGEN 4 mg/dL (7-20); CALCIUM 8.9 mg/dL (8.4-10.2); CARBON DIOXIDE 26 mmol/L (22-30); CHLORIDE 105 mmol/L (98-107); GLUCOSE 84 mg/dL (75-110)
--- NOTE | 2018-12-27 06:48 | PDOC PROGRESS REPORT ---
Subjective Progress Note for:: 12/26/18 Subjective:: 58-year-old male who was admitted last night secondary to pancreatitis she states she has had no alcohol in several months possibly since July of this year patient comes in with another episode of pancreatitis. Ultrasound last night showed no acute process. Patient's lipase last night was 9693 today it is 3119 is improved. Patient's other lab values are normal. Patient will be kept on clear liquids only IV fluids IV pain medication reassess daily patient is also on Pancrease as well as Reglan patient has no vomiting no fever. She is vital signs are stable. 12/26/2018 patient is feeling significantly better less abdominal pain patient has been eating a clear diet now and is asking for more solid food. Lipase is come down to 578 temperature 98.3 blood pressure 123/67 ,O2 sat 98% on room air Going to increase patient's diet as tolerated starting off with full liquids and soft and so forth I have stopped patient's IV fluids, patient is using very li ttle pain medication. Patient can be discharged whenever he is eating solid food with no abdominal pain probably Wednesday or Wednesday. Reason For Visit: ACUTE RECURRENT PANCREATITIS Physical Exam Vital Signs: Temp Pulse Resp BP Pulse Ox 98.3 F 72 18 123/67 98 12/26/18 11:04 12/26/18 11:04 12/26/18 11:04 12/26/18 11:04 12/26/18 11:04 Intake & Output 12/25/18 12/26/18 12/27/18 06:59 06:59 06:59 Intake Total 1999 5711 94 Balance 1999 7127 940 Weight 63 kg 65.3 kg General appearance: PRESENT: no acute distress, well-developed, well-nourished Head exam: PRESENT: atraumatic, normocephalic Respiratory exam: PRESENT: clear to auscultation rosa. ABSENT: rales, rhonchi, wheezes Cardiovascular exam: PRESENT: RRR. ABSENT: diastolic murmur, rubs, systolic murmur GI/Abdominal exam: PRESENT: hyperactive bowel sounds, soft, other - Patient is passing gas and having bowel movements Neurological exam: PRESENT: alert, awake, oriented to person, oriented to place, oriented to time, oriented to situation, CN II-XII grossly intact. ABSENT: motor sensory deficit Psychiatric exam: PRESENT: appropriate affect, normal mood. ABSENT: homicidal ideation, suicidal ideation Results Laboratory Results: 12/26/18 06:08 12/26/18 06:08 12/26/18 12/26/18 06:08 06:08 WBC 8.5 RBC 3.57 L Hgb 11.6 L Hct 33.9 L MCV 95 MCH 32.5 MCHC 34.3 RDW 13.5 Plt Count 217 Sodium 139.8 Potassium 4.5 Chloride 106 Carbon Dioxide 28 Anion Gap 6 BUN 6 L Creatinine 0.64 Est GFR ( Amer) > 60 Est GFR (Non-Af Amer) > 60 Glucose 86 Calcium 8.7 Magnesium 1.7 Amylase 217 H Lipase 578.6 H 12/24/18 12/24/18 17:00 17:00 Creatine Kinase 107 CK-MB (CK-2) 1.03 Troponin I < 0.012 Impressions: Abdomen Ultrasound 12/24/18 18:35 IMPRESSION: No evidence of acute process Limited evaluation of the pancreas secondary to bowel gas Assessment and Plan - Diagnosis (1) Acute pancreatitis Qualifiers: Pancreatitis type: unspecified pancreatitis type Acute pancreatitis complication: unspecified Qualified Code(s): K85.90 - Acute pancreatitis without necrosis or infection, unspecified Is this a current diagnosis for this admission?: Yes Plan: 12/25/2018 patient will be kept on clear liquids, IV fluids, IV pain medication. 12/26/2017. We will advance diet today, DC IV fluids, check labs. Patient is having less abdominal pain (2) Leukocytosis Qualifiers: Leukocytosis type: unspecified Qualified Code(s): D72.829 - Elevated white blood cell count, unspecified Is this a current diagnosis for this admission?: No (3) Abdominal pain Qualifiers: Abdominal location: epigastric Qualified Code(s): R10.13 - Epigastric pain Is this a current diagnosis for this admission?: Yes Plan: 12/25/2018 patient's abdominal pain is much less than last night 12/26/2018. Patient is improving significantly with less abdominal pain today, asking for solid food. Patient is using very little pain medicine. (4) Alcohol dependence Qualifiers: Complication of substance-induced condition: uncomplicated Is this a current diagnosis for this admission?: No - Time Time Spent with patient: 15-24 minutes
[2018-12-27] MEDS: LIPASE/PROTEASE/AMYLASE 1 CAP CAPSULE.DR PO SCH ×2 (08:31→12:42)
[2018-12-27] MEDS: METOCLOPRAMIDE HCL 10 MG TABLET PO SCH ×2 (08:32→11:14)
[2018-12-27] MEDS: THIAMINE HCL 100 MG TABLET PO SCH (09:08)
[2018-12-27] MEDS: DOCUSATE SODIUM 100 MG CAPSULE PO SCH (09:08)
[2018-12-27] MEDS: FOLIC ACID 1 MG TABLET PO SCH (09:08)
[2018-12-27 14:00] VITALS: BP 116/61
--- NOTE | 2018-12-28 17:24 | PDOC DISCHARGE SUMMARY ---
General - Admit/Disc Date/PCP Admission Date/Primary Care Provider: 12/24/18 21:[facility] Discharge Date: 12/27/18 - Discharge Diagnosis (1) Acute pancreatitis Is this a current diagnosis for this admission?: Yes (2) Alcohol dependence Is this a current diagnosis for this admission?: Yes (3) COPD (chronic obstructive pulmonary disease) Is this a current diagnosis for this admission?: Yes (4) Hypertension Is this a current diagnosis for this admission?: Yes - Additional Information Resuscitation Status: Full Code Discharge Diet: As Tolerated Discharge Activity: Activity As Tolerated, Balance Activity w/Rest Home Medications: Amlodipine Besylate [Norvasc 2.5 mg Tablet] 5 mg PO DAILY #0 12/27/18 History of Present Illness History of Present Illness: Admitting hospitalist's H&P: CLAUDIO LEOS is a 58 year old male who presented to the emergency room with acute abdominal pain. Patient admits sudden onset of abdominal pain at 2 AM waking him from sleep. The pain persisted through the day and he subsequently pr esented to the emergency room suspecting that he was having another flareup of pancreatitis. He states he has not been drinking for 1 month although he continues to smoke. He describes the pain as a constant, severe throbbing in his upper abdomen with radiation through to his back. The pain is made worse by eating or drinking and has been accompanied by nausea without vomiting. He admits several prior similar episodes due to alcoholic pancreatitis and has not identified any additional aggravating or ameliorating factors for his abdominal pain. In the emergency room he was found to have an elevated serum lipase of 9600, a leukocytosis and a right upper abdominal ultrasound which was negative for stones or evidence of biliary obstruction. Patient was subsequently admitted to the hospital for further evaluation and treatment. Hospital Course Hospital Course: She was admitted for alcoholic pancreatitis. Patient was initially made n.p.o. He was started on IV fluids and was also started on IV pain medications. His diet was gradually advanced and he was able to tolerate a solid diet without any recurrence of abdominal pain, nausea or vomiting. His amlodipine was also increased from 2.5 to 5 mg daily due to his elevated blood pressures. He was counseled about alcohol cessation in length. Physical Exam Vital Signs: Temp Pulse Resp BP Pulse Ox 98.2 F 59 L 16 116/61 98 12/27/18 13:57 12/27/18 13:57 12/27/18 13:57 12/27/18 13:57 12/27/18 13:57 Intake & Output 12/26/18 12/27/18 12/28/18 06:59 06:59 06:59 Intake Total 7137 4682 Balance 7137 4682 Weight 143 lb 15.39 oz 142 lb 6.698 oz General appearance: PRESENT: no acute distress, well-developed, well-nourished Head exam: PRESENT: atraumatic, normocephalic Eye exam: PRESENT: conjunctiva pink, EOMI, PERRLA. ABSENT: scleral icterus Ear exam: PRESENT: normal external ear exam Mouth exam: PRESENT: moist, tongue midline Neck exam: ABSENT: carotid bruit, JVD, lymphadenopathy, thyromegaly Respiratory exam: PRESENT: clear to auscultation rosa. ABSENT: rales, rhonchi, wheezes Cardiovascular exam: PRESENT: RRR. ABSENT: diastolic murmur, rubs, systolic murmur Pulses: PRESENT: normal dorsalis pedis pul GI/Abdominal exam: PRESENT: normal bowel sounds, soft. ABSENT: distended, guarding, mass, organolmegaly, rebound, tenderness Rectal exam: PRESENT: deferred Extremities exam: PRESENT: full ROM. ABSENT: calf tenderness, clubbing, pedal edema Neurological exam: PRESENT: alert, awake, oriented to person, oriented to place, oriented to time, oriented to situation, CN II-XII grossly intact. ABSENT: motor sensory deficit Results Laboratory Results: 12/27/18 05:20 12/27/18 05:20 12/27/18 12/27/18 05:20 05:20 WBC 7.5 RBC 3.74 L Hgb 12.2 L Hct 35.4 L MCV 95 MCH 32.5 MCHC 34.4 RDW 13.4 Plt Count 233 Sodium 139.2 Potassium 4.0 Chloride 105 Carbon Dioxide 26 Anion Gap 8 BUN 4 L Creatinine 0.53 Est GFR ( Amer) > 60 Est GFR (Non-Af Amer) > 60 Glucose 84 Calcium 8.9 Magnesium 1.7 Amylase 107 Lipase 283.3 12/24/18 12/24/18 17:00 17:00 Creatine Kinase 107 CK-MB (CK-2) 1.03 Troponin I < 0.012 Impressions: Abdomen Ultrasound 12/24/18 18:35 IMPRESSION: No evidence of acute process Limited evaluation of the pancreas secondary to bowel gas Qualifiers - * PATIENT BEING DISCHARGED WITH ANY OF THE FOLLOWING DIAGNOSIS: No Acute Heart Failure - Is this a Heart Failure Patient?: No LVEF < 40%?: No- if no continue to question #3 3. Anticoagulant therapy for permanect/persistent/paraoxysmal Afib or Aflutter: N/A
== END 2018-12-27 15:28 | disposition home or self-care (01) | DRG 440 ==
LOC: ER 16:00 → EH 21:25 → 5 22:55
PROVIDERS: ADMIT Emergency Medicine; ATTEND Emergency Medicine
DX: K85.20 Alcohol induced acute pancreatitis without necrosis or infection (principal); I10 Essential (primary) hypertension; J44.9 Chronic obstructive pulmonary disease, unspecified; F17.200 Nicotine dependence, unspecified, uncomplicated; F10.20 Alcohol dependence, uncomplicated
CPT/HCPCS: 36415; 76705; 80048; 80053; 80061; 80307; 81001; 82150; 82550; 82553; 83690; 83735; 84439; 84443; 84481; 84484; 85025; 85027; 93005; 93010; 96361; 96374; 96375; 99285; J1170; J1644; J2270; J2405; J3490; J7030; J7120

== ENCOUNTER 2019-08-07 09:34 | Emergency (ER) | payer OTHER ==
[2019-08-07] MEDS ORDERED: NORMAL SALINE 1000 ML 1,000 ML IV ONE (09:43)
[2019-08-07] MEDS ORDERED: MORPHINE SULFATE 10 MG/ML INJ IV ONE (09:44)
--- NOTE | 2019-08-07 09:45 | ER Document Report ---
ED Medical Screen (RME) - General Chief Complaint: Abdominal Pain Stated Complaint: ABDOMINAL PAIN Time Seen by Provider: 08/07/19 09:41 Primary Care Provider: ANGELA CROWELL [Primary Care Provider] - Follow up as needed Mode of Arrival: Ambulatory Information source: Patient Notes: Patient is a 58-year-old male with history of pancreatitis presenting to the emergency department chief complaint of 1 week history of right lower quadrant abdominal pain with diarrhea. Patient reports no nausea or vomiting but states every time he drinks anything it comes straight through him in the form of diarrhea. He reports no fever for the last 24 hours but he states over the last week he has had fevers at home. Reports past medical history of hypertension. Exam: Abdomen soft, no obvious tenderness with palpation. I have greeted and performed a rapid initial assessment of this patient. A comprehensive ED assessment and evaluation of the patient, analysis of test results and completion of the medical decision making process will be conducted by additional ED providers. I have specifically instructed the patient or family members with the patient to immediately return to any nursing staff should anything change in the patient's condition or with their chief complaint. TRAVEL OUTSIDE OF THE [place] IN LAST 30 DAYS: No - Related Data Allergies/Adverse Reactions: No Known Allergies Allergy (Verified 08/07/19 09:43) Past Medical History - Past Medical History Cardiac Medical History: Reports: Hx Hypertension Denies: Hx Coronary Artery Disease, Hx Peripheral Vascular Disease Pulmonary Medical History: Reports: Hx COPD Denies: Hx Asthma Neurological Medical History: Denies: Hx Seizures Endocrine Medical History: Denies: Hx Diabetes Mellitus Type 1, Hx Diabetes Mellitus Type 2, Hx Hyperthyroidism, Hx Hypothyroidism Renal/ Medical History: Denies: Hx Peritoneal Dialysis GI Medical History: Denies: Hx Cirrhosis, Hx Hepatitis Musculoskeltal Medical History: Denies Hx Arthritis, Denies Hx Gout Skin Medical History: Denies Hx Eczema, Denies Hx Psoriasis Psychiatric Medical History: Denies: Hx Depression Infectious Medical History: Denies: Hx Hepatitis Past Surgical History: Reports: Hx Tonsillectomy - Immunizations Hx Diphtheria, Pertussis, Tetanus Vaccination: Yes Doctor's Discharge - Discharge Referrals: [facility] [Primary [facility]] - Follow up as needed
--- NOTE | 2019-08-07 09:53 | ER Document Report ---
ED General - General Chief Complaint: Abdominal Pain Stated Complaint: ABDOMINAL PAIN Time Seen by Provider: 08/07/19 09:41 Primary Care Provider: MERVAT,ANGELA [Primary Care Provider] - Follow up as needed Mode of Arrival: Ambulatory TRAVEL OUTSIDE OF THE [place] IN LAST 30 DAYS: No - HPI Patient complains to provider of: Abdominal Pain Notes: Patient is a 58-year-old male with history of pancreatitis presenting to the emergency department chief complaint of 1 week history of right lower quadrant abdominal pain with diarrhea. Patient reports no nausea or vomiting but states every time he drinks anything it comes straight through him in the form of diarrhea. He reports no fever for the last 24 hours but he states over the last week he has had fevers at home. Reports past medical history of hypertension. 8/10 sharp in nature without radiation nothing makes it better or worse. Patient also endorsing cough shortness of breath. - Related Data Allergies/Adverse Reactions: No Known Allergies Allergy (Verified 08/07/19 09:43) Home Medications: amlodipine Past Medical History - General Information source: Patient - Social History Smoking Status: Current Every Day Smoker Chew tobacco use (# tins/day): No Frequency of alcohol use: Heavy Drug Abuse: Marijuana Family History: COPD, Malignancy - father Patient has suicidal ideation: No Patient has homicidal ideation: No - Past Medical History Cardiac Medical History: Reports: Hx Hypertension Denies: Hx Coronary Artery Disease, Hx Peripheral Vascular Disease Pulmonary Medical History: Reports: Hx COPD Denies: Hx Asthma Neurological Medical History: Denies: Hx Seizures Endocrine Medical History: Denies: Hx Diabetes Mellitus Type 1, Hx Diabetes Mellitus Type 2, Hx Hyperthyroidism, Hx Hypothyroidism Renal/ Medical History: Denies: Hx Peritoneal Dialysis GI Medical History: Denies: Hx Cirrhosis, Hx Hepatitis Musculoskeletal Medical History: Denies Hx Arthritis, Denies Hx Gout Skin Medical History: Denies Hx Eczema, Denies Hx Psoriasis Psychiatric Medical History: Denies: Hx Depression Infectious Medical History: Denies: Hx Hepatitis Past Surgical History: Reports: Hx Tonsillectomy - Immunizations Hx Diphtheria, Pertussis, Tetanus Vaccination: Yes Review of Systems - Review of Systems Notes: REVIEW OF SYSTEMS: CONSTITUTIONAL: -fevers, -chills EENT: -eye pain, -difficulty swallowing, -nasal congestion CARDIOVASCULAR: -chest pain, -syncope. RESPIRATORY: positive cough and SOB GASTROINTESTINAL: positive abdominal pain, -nausea, -vomiting, positive diarrhea GENITOURINARY: -dysuria, -hematuria MUSCULOSKELETAL: -back pain, -neck pain SKIN: -rash or skin lesions. HEMATOLOGIC: -easy bruising or bleeding. LYMPHATIC: -swollen, enlarged glands. NEUROLOGICAL: -altered mental status or loss of consciousness, -headache, - neurologic symptoms PSYCHIATRIC: -anxiety, -depression. ALL OTHER SYSTEMS REVIEWED AND NEGATIVE. Physical Exam - Vital signs Vitals: Temp Pulse Resp BP Pulse Ox 98.4 F 77 18 132/79 H 98 08/07/19 09:41 08/07/19 09:41 08/07/19 09:41 08/07/19 09:41 08/07/19 09:41 - Notes Notes: PHYSICAL EXAMINATION: GENERAL: Well-appearing, well-nourished and in no acute distress. HEAD: Atraumatic, normocephalic. EYES: Pupils equal round and reactive to light, extraocular movements intact, sclera anicteric, conjunctiva are normal. ENT: nares patent, oropharynx clear without exudates. Moist mucous membranes. NECK: Normal range of motion, supple without lymphadenopathy LUNGS: Breath sounds clear to auscultation bilaterally and equal. No wheezes rales or rhonchi. HEART: Regular rate and rhythm without murmurs ABDOMEN: Soft, nontender, normoactive bowel sounds. No guarding, no rebound. No masses appreciated. EXTREMITIES: Normal range of motion, no pitting or edema. No cyanosis. NEUROLOGICAL: Cranial nerves grossly intact. Normal speech, normal gait. Normal sensory and motor exams. PSYCH: Normal mood, normal affect. SKIN: Warm, Dry, normal turgor, no rashes or lesions noted. Course - Re-evaluation Re-evalutation: 08/07/19 10:02 Well-appearing 58-year-old man, history of tobacco abuse presents benign physical exam. Vital signs are stable within normal limits. 08/07/19 11:49 Well-appearing 4-year-old man no acute distress benign abdominal exam. Patient's extensive lab work-up shows no leukocytosis preserved renal function. Chest x-ray negative, CAT scan abdomen pelvis shows only enteritis of the abdo men. No pancreatitis negative lipase. Patient given ample fluid resuscitation. Patient pain-free at this time. Patient be discharged home with oral Zofran. Follow-up PCP return if he worsens or changes - Vital Signs Vital signs: Temp Pulse Resp BP Pulse Ox 98.4 F 77 18 132/79 H 98 08/07/19 09:41 08/07/19 09:41 08/07/19 09:41 08/07/19 09:41 08/07/19 09:41 - Laboratory Result Diagrams: 08/07/19 10:04 08/07/19 10:04 Laboratory results interpreted by me: 08/07/19 08/07/19 08/07/19 09:50 10:04 10:04 MCH 34.5 H RDW 14.3 H Lymphocytes % (Manual) 5 L Monocytes % (Manual) 29 H Abs Lymphs (Manual) 0.4 L Sodium 127.0 L Chloride 87 L Lipase 308.6 H Urine Protein 30 H Urine Ketones TRACE H Urine Blood SMALL H Discharge - Discharge Clinical Impression: Enteritis Condition: Stable Disposition: HOME, SELF-CARE Prescriptions: Ondansetron [Zofran Odt 4 mg Tablet] 1 - 2 tab PO Q4H PRN #15 tab.rapdis PRN Reason: For Nausea/Vomiting [facility]errals: [facility] [Primary [facility]] - Follow up as needed
[2019-08-07 10:19] LABS: APPEARANCE,URINE SLIGHTLY-CLOUDY; BILIRUBIN,URINE NEGATIVE (NEGATIVE); COLOR,URINE YELLOW; GLUCOSE, URINE NEGATIVE (NEGATIVE); KETONES,URINE TRACE mg/dL (NEGATIVE); LEUKOCYTE ESTERASE,URINE NEGATIVE (NEGATIVE); NITRITE,URINE NEGATIVE (NEGATIVE); PROTEIN,URINE 30 mg/dL (NEGATIVE); URINE SPECIFIC GRAVITY 1.015; UROBILINOGEN,URINE NEGATIVE mg/dL (<2.0)
[2019-08-07 10:49] LABS: ALBUMIN 4.3 g/dL (3.5-5.0); ALKALINE PHOSPHATASE 62 U/L (38-126); ANION GAP 12 (5-19); ASPARTATE AMINO TRANSFERASE 39 U/L (17-59); BILIRUBIN,DIRECT 0.4 mg/dL (0.0-0.4); BILIRUBIN,TOTAL 0.4 mg/dL (0.2-1.3); BLOOD UREA NITROGEN 7 mg/dL (7-20); CALCIUM 8.6 mg/dL (8.4-10.2); CARBON DIOXIDE 28 mmol/L (22-30); CHLORIDE 87 mmol/L (98-107); GLUCOSE 110 mg/dL (75-110); POTASSIUM 3.9 mmol/L (3.6-5.0); TOTAL PROTEIN 7.5 g/dL (6.3-8.2)
[2019-08-07 11:01] LABS: NT PRO BNP 74 pg/mL (<125)
[2019-08-07 11:02] LABS: TROPONIN I < 0.012 ng/mL
[2019-08-07 11:09] LABS: HEMATOCRIT 45.8 % (37.9-51.0); HEMOGLOBIN 16.3 g/dL (13.5-17.0); MEAN CORPUSCULAR HEMOGLOBIN 34.5 pg (27.0-33.4); MEAN CORPUSCULAR HGB CONC 35.6 g/dL (32.0-36.0); MEAN CORPUSCULAR VOLUME 97 fl (80-97); PLATELET COUNT 178 10^3/uL (150-450); RED BLOOD COUNT 4.72 10^6/uL (4.35-5.55); RED CELL DISTRIBUTION WIDTH 14.3 % (11.5-14.0); WHITE BLOOD COUNT 4.6 10^3/uL (4.0-10.5)
[2019-08-07 11:18] LABS: ABSOLUTE LYMPHOCYTES# (MANUAL) 0.4 10^3/uL (0.5-4.7); ABSOLUTE MONOCYTES # (MANUAL) 1.3 10^3/uL (0.1-1.4); BAND NEUTROPHILS % (MANUAL) 5 % (3-5); BASOPHILS % (MANUAL) 0 % (0-2); EOSINOPHILS % (MANUAL) 3 % (0-6); LYMPHOCYTES % (MANUAL) 5 % (13-45); MONOCYTES % (MANUAL) 29 % (3-13); SEGMENTED NEUTROPHILS % (MAN) 54 % (42-78); TOTAL CELLS COUNTED 100
[2019-08-07 11:20] LABS: ANISOCYTOSIS SLIGHT; PLATELET CLUMPS PRESENT; PLATELET COMMENT ADEQUATE; TOXIC GRANULATION SLIGHT
--- NOTE | 2019-08-07 11:42 | RADIOLOGY REPORT (SQ) ---
EXAM DESCRIPTION: CT ABD/PELVIS WITH IV ONLY COMPLETED DATE/TIME: 08/07/2019 11:23 am REASON FOR STUDY: Abdominal pain COMPARISON: 10/08/2018 TECHNIQUE: CT scan of the abdomen and pelvis performed using helical scanning technique with dynamic intravenous contrast injection. No oral contrast. Images reviewed with lung, soft tissue, and bone windows. Reconstructed coronal and sagittal MPR images reviewed. Delayed images for evaluation of the urinary system also acquired. All images stored on PACS. All CT scanners at this facility use dose modulation, iterative reconstruction, and/or weight based d osing when appropriate to reduce radiation dose to as low as reasonably achievable (ALARA). [facility]: Dose Right [facility]: CareDose [facility]: Dose Right [facility]: Teradose 4D [facility]: [employer] CONTRAST TYPE AND DOSE: contrast/concentration: Isovue 350.00 mg/ml; Total Contrast Delivered: 77.0 ml; Total Saline Delivered: 67.0 ml RENAL FUNCTION: Creatinine 0.54 RADIATION DOSE: CT Rad equipment meets quality standard of care and radiation dose reduction techniq ues were employed. CTDIvol: 4.8 - 5.6 mGy. DLP: 530 mGy-cm.. LIMITATIONS: None. FINDINGS: LOWER CHEST: No significant findings. No nodules or infiltrates. LIVER: Normal size. No masses. No dilated ducts. SPLEEN: Normal size. No focal lesions. PANCREAS: No pancreatic ductal dilation. Stable hypodense lesion along the pancreatic body measuring 16 mm (series 3, image 19). No new pancreatic masses. No definitive peripancreatic inflammatory ch joelle GALLBLADDER: No identified stones by CT criteria. No inflammatory changes to suggest cholecystitis. ADRENAL GLANDS: No significant masses or asymmetry. RIGHT KIDNEY AND URETER: No solid masses. No significant calcifications. No hydronephrosis or hyd roureter. LEFT KIDNEY AND URETER: No solid masses. No significant calcifications. No hydronephrosis or hydr oureter. AORTA AND VESSELS: No aneurysm. No dissection. Renal arteries, SMA, celiac without stenosis. RETROPERITONEUM: No retroperitoneal adenopathy, hemorrhage or masses. BOWEL AND PERITONEAL CAVITY: Scattered colonic diverticula. No focal bowel wall thickening. No evid ence of high-grade intestinal obstruction. Scattered mildly dilated gas and fluid-filled loops of sm all bowel measuring up to 2.7 cm. APPENDIX: Nonvisualized. PELVIS: No mass. No free fluid. Normal bladder. ABDOMINAL WALL: No masses. No hernias. BONES: No significant or acute findings. OTHER: No acute bony abnormality. No suspicious osseous lesions. IMPRESSION: 1. No evidence of high-grade obstruction. Scattered mildly dilated small bowel loops w ith associated fluid levels possibly secondary to enteritis. 2. Unchanged cystic lesion within the pancreatic body measuring up to 1.6 cm. 3. No other evidence of acute intra-abdominal/pelvic process. TECHNICAL DOCUMENTATION: JOB ID: [id number] Quality ID # [id number]: Final reports with documentation of one or more dose reduction techniques (e.g., Au tomated exposure control, adjustment of the mA and/or kV according to patient size, use of iterative reconstruction technique) 2010 [email or web address]- All Rights Reserved Reading location - IP/workstation name: [email or web address]
--- NOTE | 2019-08-07 11:44 | RADIOLOGY REPORT (SQ) ---
EXAM DESCRIPTION: CHEST 2 VIEWS COMPLETED DATE/TIME: 08/07/2019 11:29 am REASON FOR STUDY: SOB COMPARISON: 03/28/2018 EXAM PARAMETERS: NUMBER OF VIEWS: two views TECHNIQUE: Digital Frontal and Lateral radiographic views of the chest acquired. RADIATION DOSE: NA LIMITATIONS: none FINDINGS: LUNGS AND PLEURA: Unchanged linear left mid lung and apical opacities, likely scarring. M ild hyperinflation. No focal consolidation, pleural effusion or pneumothorax. MEDIASTINUM AND HILAR STRUCTURES: No masses or contour abnormalities. HEART AND VASCULAR STRUCTURES: Heart normal size. No evidence for failure. BONES: No acute findings. HARDWARE: None in the chest. OTHER: No other significant finding. IMPRESSION: No evidence of acute cardiopulmonary process. Stable left mid lung and apical linear opacities, likely scarring. TECHNICAL DOCUMENTATION: JOB ID: [id number] 2010 [employer]- All Rights Reserved Reading location - IP/workstation name: [email or web address]
[2019-08-07] MEDS ORDERED: IPRATROPIUM/ALBUTEROL 0.5-2.5 MG/3 ML AMPUL NEB ONE (11:54)
[2019-08-07 12:24] VITALS: BP 119/61
[2019-08-08 11:19] LABS: PATH REVIEW PATHOLOGIST REVIEWED
== END 2019-08-07 12:27 | disposition home or self-care (01) ==
LOC: ER 09:34
DX: K52.9 Noninfective gastroenteritis and colitis, unspecified (principal); R10.31 Right lower quadrant pain; R05 Cough; R06.02 Shortness of breath; F17.200 Nicotine dependence, unspecified, uncomplicated; I10 Essential (primary) hypertension
CPT/HCPCS: 94640; 99284; 96361; 96374; 36415; 83690; 85025; 80053; 81001; 84484; 83880; 71046; 74177; J2270; J7030; J7620

== ENCOUNTER 2019-08-17 10:59 | Emergency (ER) | payer OTHER ==
[2019-08-17] MEDS ORDERED: IPRATROPIUM/ALBUTEROL 0.5-2.5 MG/3 ML AMPUL NEB ONE ×2 (11:04→11:05)
[2019-08-17] MEDS ORDERED: METHYLPREDNISOLONE INJ 125 MG/2 ML SDV IV ONE (11:04)
--- NOTE | 2019-08-17 11:10 | ER Document Report ---
ED Medical Screen (RME) - General Chief Complaint: Chest Pain Stated Complaint: DIFFICULTY BREATHING Time Seen by Provider: 08/17/19 11:03 Primary Care Provider: [facility] [Primary Care Provider] - Follow up as needed Mode of Arrival: Wheelchair Information source: Patient Notes: 58-year-old male presented to ED for extreme shortness of breath cough. He states he does have COPD is smokes a pack a day. states he was in here couple weeks ago for similar symptoms. She states that he got much worse about a week ago and has steadily gotten worse. She states she continues to smoke a pack a day. He is coughing nonstop with O2 sat of 88%. She states he does have a severe COPD. Also complaining of severe chest pain. Patient was able to answer was 1 or 2 word sentences. I have greeted and performed a rapid initial assessment of this patient. A comprehensive ED assessment and evaluation of the patient, analysis of test results and completion of medical decision making process will be conducted by an additional ED providers. TRAVEL OUTSIDE OF THE [place] IN LAST 30 DAYS: No - Related Data Allergies/Adverse Reactions: No Known Allergies Allergy (Verified 08/07/19 09:43) Past Medical History - General Information source: Patient - Social History Cigarette use (# per day): Yes - ppd - Past Medical History Cardiac Medical History: Reports: Hx Hypertension Denies: Hx Coronary Artery Disease, Hx Peripheral Vascular Disease Pulmonary Medical History: Reports: Hx COPD Denies: Hx Asthma Neurological Medical History: Denies: Hx Seizures Endocrine Medical History: Denies: Hx Diabetes Mellitus Type 1, Hx Diabetes Mellitus Type 2, Hx Hyperthyroidism, Hx Hypothyroidism Renal/ Medical History: Denies: Hx Peritoneal Dialysis GI Medical History: Denies: Hx Cirrhosis, Hx Hepatitis Musculoskeltal Medical History: Denies Hx Arthritis, Denies Hx Gout Skin Medical History: Denies Hx Eczema, Denies Hx Psoriasis Psychiatric Medical History: Denies: Hx Depression Infectious Medical History: Denies: Hx Hepatitis Past Surgical History: Reports: Hx Tonsillectomy - Immunizations Hx Diphtheria, Pertussis, Tetanus Vaccination: Yes Doctor's Discharge - Discharge [facility]errals: [facility] [[facility]] - Follow up as needed
[2019-08-17 11:45] LABS: ABSOLUTE BASOPHILS # (AUTO) 0.1 10^3/uL (0.0-0.2); ABSOLUTE LYMPHOCYTES (AUTO) 1.5 10^3/uL (0.5-4.7); ABSOLUTE MONOCYTES (AUTO) 2.4 10^3/uL (0.1-1.4); BASOPHILS % (AUTO) 0.9 % (0-2); EOSINOPHILS % (AUTO) 0.3 % (0-6); HEMATOCRIT 40.4 % (37.9-51.0); HEMOGLOBIN 14.5 g/dL (13.5-17.0); LYMPHOCYTES % (AUTO) 10.8 % (13-45); MEAN CORPUSCULAR HEMOGLOBIN 34.9 pg (27.0-33.4); MEAN CORPUSCULAR HGB CONC 35.9 g/dL (32.0-36.0); MEAN CORPUSCULAR VOLUME 97 fl (80-97); PLATELET COUNT 495 10^3/uL (150-450); RED BLOOD COUNT 4.16 10^6/uL (4.35-5.55); RED CELL DISTRIBUTION WIDTH 13.8 % (11.5-14.0); TOTAL CELLS COUNTED % (AUTO) 100 %; WHITE BLOOD COUNT 14.1 10^3/uL (4.0-10.5)
--- NOTE | 2019-08-17 12:00 | RADIOLOGY REPORT (SQ) ---
EXAM DESCRIPTION: CHEST SINGLE VIEW COMPLETED DATE/TIME: 08/17/2019 11:47 am REASON FOR STUDY: cough congestion chest pain COMPARISON: 08/07/2019 EXAM PARAMETERS: NUMBER OF VIEWS: One view. TECHNIQUE: Single frontal radiographic view of the chest acquired. RADIATION DOSE: NA LIMITATIONS: None. FINDINGS: LUNGS AND PLEURA: Stable mild bronchiectasis left upper lobe. No evidence of pulmonary ed amilcar or pneumonia. MEDIASTINUM AND HILAR STRUCTURES: No masses. Contour normal. HEART AND VASCULAR STRUCTURES: Heart normal in size. Normal vasculature. BONES: No acute findings. HARDWARE: None in the chest. OTHER: No other significant finding. IMPRESSION: NO ACUTE RADIOGRAPHIC FINDING IN THE CHEST. TECHNICAL DOCUMENTATION: JOB ID: [id number] 2010 [employer]- All Rights Reserved Reading location - IP/workstation name: [email or web address]
[2019-08-17 12:02] LABS: ALBUMIN 4.1 g/dL (3.5-5.0); ALKALINE PHOSPHATASE 74 U/L (38-126); ANION GAP 11 (5-19); ASPARTATE AMINO TRANSFERASE 22 U/L (17-59); BILIRUBIN,DIRECT 0.1 mg/dL (0.0-0.4); BILIRUBIN,TOTAL 0.8 mg/dL (0.2-1.3); BLOOD UREA NITROGEN 4 mg/dL (7-20); CALCIUM 9.1 mg/dL (8.4-10.2); CARBON DIOXIDE 28 mmol/L (22-30); CHLORIDE 91 mmol/L (98-107); GLUCOSE 120 mg/dL (75-110); POTASSIUM 4.9 mmol/L (3.6-5.0); TOTAL PROTEIN 7.8 g/dL (6.3-8.2)
--- NOTE | 2019-08-17 12:29 | ER Document Report ---
ED General - General Chief Complaint: Chest Pain Stated Complaint: DIFFICULTY BREATHING Time Seen by Provider: 08/17/19 11:03 Primary Care Provider: MERVAT,ANGELA [Primary Care Provider] - Follow up as needed Mode of Arrival: Wheelchair TRAVEL OUTSIDE OF THE [place] IN LAST 30 DAYS: No - HPI Notes: Patient is a 58-year-old male with longtime smoking history who presents emergency department for evaluation of cough and shortness of breath. He is been coughing for the last 2 weeks. He states his symptoms have gotten worse and over the last 24 hours. He states he has had intermittent fevers, his temperature was 100.3 orally last night, and that is the highest it has been. He has pain in his chest that he describes as a soreness from coughing, a burni ng in his lungs. He also states he has some burning in his legs. He has had no nausea or vomiting. No nasal congestion. He has not traveled to any high risk areas for coronavirus. He is not in contact with any known positive patients. The patient does continue to smoke. - Related Data Allergies/Adverse Reactions: No Known Allergies Allergy (Verified 08/07/19 09:43) Home Medications: Norvasc Past Medical History - General Information source: Patient - Social History Smoking Status: Current Every Day Smoker Cigarette use (# per day): Yes - ppd Frequency of alcohol use: Heavy Drug Abuse: Marijuana Family History: COPD, Malignancy - father Patient has suicidal ideation: No Patient has homicidal ideation: No - Past Medical History Cardiac Medical History: Reports: Hx Hypertension Denies: Hx Coronary Artery Disease, Hx Peripheral Vascular Disease Pulmonary Medical History: Reports: Hx COPD Denies: Hx Asthma Neurological Medical History: Denies: Hx Seizures Endocrine Medical History: Denies: Hx Diabetes Mellitus Type 1, Hx Diabetes Mellitus Type 2, Hx Hyperthyroidism, Hx Hypothyroidism Renal/ Medical History: Denies: Hx Peritoneal Dialysis GI Medical History: Denies: Hx Cirrhosis, Hx Hepatitis Musculoskeletal Medical History: Denies Hx Arthritis, Denies Hx Gout Skin Medical History: Denies Hx Eczema, Denies Hx Psoriasis Psychiatric Medical History: Denies: Hx Depression Infectious Medical History: Denies: Hx Hepatitis Past Surgical History: Reports: Hx Tonsillectomy - Immunizations Hx Diphtheria, Pertussis, Tetanus Vaccination: Yes Review of Systems - Review of Systems Constitutional: See HPI Respiratory: See HPI Musculoskeletal: See HPI -: Yes All other systems reviewed and negative Physical Exam - Vital signs Vitals: Temp Pulse Resp BP Pulse Ox 98.2 F 94 30 H 154/75 H 88 L 08/17/19 11:12 08/17/19 11:12 08/17/19 11:12 08/17/19 11:12 08/17/19 11:12 - Notes Notes: This is a 58-year-old gentleman who appears his stated age and is in no acute distress. At the time of my evaluation he had already been treated with DuoNeb x2. He was breathing 18-20 times a minute, 93% on room air. Vital signs reviewed, please refer to chart. Head is normocephalic, atraumatic. Pupils equal round, reactive to light. Neck is supple without meningismus. Heart is regular rate and rhythm. Lungs reveal diminished breath sounds with prolonged expiratory phase, expiratory wheezes throughout. Abdomen is soft, nontender, normoactive bowel sounds throughout. Extremities without cyanosis, clubbing. Posterior calves are nontender. No tenderness to palpation or light touch of the lower extremities. Peripheral pulses are equal. Skin is warm and dry. Patient is awake, alert, neurological exam is nonfocal. Course - Re-evaluation Re-evalutation: 08/17/19 12:25 Patient presents emergency department for evaluation. He has a history of COPD and is 88% on room air on arrival. Laboratory investigations, including cultures, chest x-ray ordered. Patient is stable at this time, we will continue to monitor. 08/17/19 14:57 Patient is feeling improved. His room air saturation has been between 90 to 94%. Patient has not had a true fever, he is never had a temperature 100.4. I believe this is simply a COPD exacerbation. He does not have any yulia open risk factors. I will send him home with steroids and Zithromax to cover for COPD exacerbation. He is to follow-up with primary care next week, return to ED with worsening concerning symptoms. He is to quit smoking. - Vital Signs Vital signs: Temp Pulse Resp BP Pulse Ox 98.2 F 94 17 142/87 H 95 08/17/19 11:12 08/17/19 11:12 08/17/19 11:13 08/17/19 11:13 08/17/19 11:13 - Laboratory Result Diagrams: 08/17/19 11:30 08/17/19 11:30 Laboratory results interpreted by me: 08/17/19 08/17/19 11:30 11:30 WBC 14.1 H RBC 4.16 L MCH 34.9 H Plt Count 495 H Lymph % (Auto) 10.8 L [place] % (Auto) 17.0 H Absolute Neuts (auto) 10.0 H Absolute Monos (auto) 2.4 H Sodium 130.0 L Chloride 91 L BUN 4 L Glucose 120 H - Diagnostic Test Radiology reviewed: Image reviewed, Reports reviewed - EKG Interpretation by Me Additional EKG results interpreted by me: 08/17/19 14:59 Sinus mechanism with a rate 82 bpm. Left axis deviation. LAFB. No acute ST changes concerning for ischemia or infarction. Discharge - Discharge Clinical Impression: COPD with acute exacerbation Condition: Stable Disposition: HOME, SELF-CARE Instructions: Chronic Obstructive Lung Disease ([facility]) Additional Instructions: Rest, stay well-hydrated. Albuterol inhaler at home as needed for shortness of breath. Use 2 puffs every 4-6 hours as needed. Take Zithromax and prednisone as directed, starting tomorrow. Follow-up with primary care next week. Return to the emergency department with worsening or new concerning symptoms of any sort. You do not have any testing for the Covid virus at this time, but you do have some suspicion. You should be off of work and on quarantine at home for the next 2 weeks. Prescriptions: Prednisone [Deltasone 20 mg Tablet] See Protocol PO DAILY 5 Days #20 tablet Albuterol Sulfate [Proair HFA Inhalation Aerosol 8.5 gm MDI] 2 puff IH Q4H PRN #1 mdi PRN Reason: Azithromycin [Zithromax 250 mg Tablet] 250 mg PO DAILY #4 tablet [facility]errals: [facility] [Primary Care Provider] - Follow up as needed
[2019-08-17 14:04] LABS: A TYPE INFLUENZA AG NEGATIVE (NEGATIVE); B INFLUENZA AG NEGATIVE (NEGATIVE)
[2019-08-17] MEDS ORDERED: MORPHINE SULFATE 10 MG/ML INJ IV ONE (14:05)
[2019-08-17] MEDS ORDERED: ONDANSETRON HCL INJ/PF 4 MG/2 ML SDV IV ONE (14:05)
[2019-08-17] MEDS ORDERED: AZITHROMYCIN 250 MG TABLET PO ONE (14:56)
[2019-08-17 15:23] VITALS: BP 132/78
--- NOTE | 2019-08-17 15:55 | EKG REPORT ---
SEVERITY:- ABNORMAL ECG - SINUS RHYTHM LEFT ANTERIOR FASCICULAR BLOCK : Confirmed by: Norma Calero MD 17-Aug-2019 15:54:30
== END 2019-08-17 15:23 | disposition home or self-care (01) ==
LOC: ER 10:59
DX: J44.1 Chronic obstructive pulmonary disease with (acute) exacerbation (principal); R07.9 Chest pain, unspecified; R05 Cough; R06.02 Shortness of breath; R50.9 Fever, unspecified; R20.0 Anesthesia of skin; F17.210 Nicotine dependence, cigarettes, uncomplicated; I10 Essential (primary) hypertension
CPT/HCPCS: 93005; 94640; 99285; 96374; 96375; 36415; 87040; 83690; 85025; 80053; 87804; 71045; 93010; J2930; J2270; J2405; J7620

== ENCOUNTER 2019-11-06 03:03 | Inpatient (IN) | payer OTHER ==
[2019-11-06 03:58] LABS: APPEARANCE,URINE CLEAR; BILIRUBIN,URINE NEGATIVE (NEGATIVE); COLOR,URINE YELLOW; GLUCOSE, URINE NEGATIVE (NEGATIVE); KETONES,URINE NEGATIVE (NEGATIVE); LEUKOCYTE ESTERASE,URINE NEGATIVE (NEGATIVE); NITRITE,URINE NEGATIVE (NEGATIVE); PROTEIN,URINE NEGATIVE (NEGATIVE); URINE SPECIFIC GRAVITY 1.009; UROBILINOGEN,URINE NEGATIVE mg/dL (<2.0)
[2019-11-06 03:59] LABS: ALBUMIN 4.3 g/dL (3.5-5.0); ALKALINE PHOSPHATASE 60 U/L (38-126); ANION GAP 5 (5-19); ASPARTATE AMINO TRANSFERASE 19 U/L (17-59); BILIRUBIN,TOTAL 0.9 mg/dL (0.2-1.3); BLOOD UREA NITROGEN 6 mg/dL (7-20); CALCIUM 9.4 mg/dL (8.4-10.2); CARBON DIOXIDE 28 mmol/L (22-30); CHLORIDE 101 mmol/L (98-107); GLUCOSE 116 mg/dL (75-110); POTASSIUM 4.3 mmol/L (3.6-5.0); TOTAL PROTEIN 7.4 g/dL (6.3-8.2)
[2019-11-06] MEDS ORDERED: NORMAL SALINE 1000 ML 1,000 ML IV ONE (04:10)
[2019-11-06] MEDS ORDERED: ONDANSETRON HCL INJ/PF 4 MG/2 ML SDV IV ONE ×2 (04:10→08:45)
[2019-11-06] MEDS ORDERED: MORPHINE SULFATE 10 MG/ML INJ IV ONE ×2 (04:11→08:44)
[2019-11-06 04:13] LABS: ABSOLUTE BASOPHILS # (AUTO) 0.1 10^3/uL (0.0-0.2); ABSOLUTE EOSINOPHILS # (AUTO) 0.2 10^3/uL (0.0-0.6); ABSOLUTE LYMPHOCYTES (AUTO) 1.7 10^3/uL (0.5-4.7); ABSOLUTE MONOCYTES (AUTO) 0.7 10^3/uL (0.1-1.4); BASOPHILS % (AUTO) 1.1 % (0-2); EOSINOPHILS % (AUTO) 2.2 % (0-6); HEMATOCRIT 46.5 % (37.9-51.0); HEMOGLOBIN 16.4 g/dL (13.5-17.0); LYMPHOCYTES % (AUTO) 17.7 % (13-45); MEAN CORPUSCULAR HEMOGLOBIN 34.7 pg (27.0-33.4); MEAN CORPUSCULAR HGB CONC 35.3 g/dL (32.0-36.0); MEAN CORPUSCULAR VOLUME 98 fl (80-97); MONOCYTES % (AUTO) 7.3 % (3-13); PLATELET COUNT 293 10^3/uL (150-450); RED BLOOD COUNT 4.73 10^6/uL (4.35-5.55); RED CELL DISTRIBUTION WIDTH 13.9 % (11.5-14.0); SEGMENTED NEUTROPHILS % (AUTO) 71.7 % (42-78); TOTAL CELLS COUNTED % (AUTO) 100 %; WHITE BLOOD COUNT 9.8 10^3/uL (4.0-10.5)
--- NOTE | 2019-11-06 04:30 | ER Document Report ---
Entered by HARSHAD CLIFTON SCRIBE 11/06/19 0409 Acting as scribe for:EDEN SOSA IV, MD ED GI/ - General Mode of Arrival: Ambulatory Information source: Patient TRAVEL OUTSIDE OF THE [place] IN LAST 30 DAYS: No <EDEN SOSA IV - Last Filed: 11/06/19 05:44> <NANI HOBBS - Last Filed: 11/06/19 09:25> - General Chief Complaint: Abdominal Pain >50 Stated Complaint: STOMACH PAIN Time Seen by Provider: 11/06/19 03:59 Primary Care Provider: [facility] [Primary Care Provider] - Follow up as needed Notes: This 59 year old male patient with a history of pancreatitis presents to the ED today with complaints of generalized abdominal pain that started yesterday morning. Patient reports nausea, but denies vomiting. He admits that the pain feels similar to his prior pancreatitis episodes. Per ED nurse, patient states that the pain is due to "eating too much red meat this weekend." He notes that his last bowel movement was yesterday. Denies any urinary symptoms. (EDEN SOSA IV) - Related Data Allergies/Adverse Reactions: No Known Allergies Allergy (Verified 08/07/19 09:43) Past Medical History - General Information source: Patient, [facility] Records - Social History Smoking Status: Current Every Day Smoker Cigarette use (# per day): Yes Chew tobacco use (# tins/day): No Smoking Education Provided: No Family History: Reviewed & Not Pertinent, COPD, Malignancy - father Patient has suicidal ideation: No Patient has homicidal ideation: No - Past Medical History Cardiac Medical History: Reports: Hx Hypertension Pulmonary Medical History: Reports: Hx COPD GI Medical History: Reports: Hx Pancreatitis Past Surgical History: Reports: Hx Tonsillectomy - Immunizations Hx Diphtheria, Pertussis, Tetanus Vaccination: Yes <EDEN SOSA IV - Last Filed: 11/06/19 05:44> Review of Systems - Review of Systems Constitutional: No symptoms reported EENT: No symptoms reported Cardiovascular: No symptoms reported Respiratory: No symptoms reported Gastrointestinal: See HPI, Abdominal pain, Nausea, Last bowel movement - 11/05/2019. denies: Vomiting Genitourinary: See HPI. denies: Burning, Dysuria, Frequency, Hematuria Male Genitourinary: No symptoms reported Musculoskeletal: No symptoms reported Skin: No symptoms reported Hematologic/Lymphatic: No symptoms reported Neurological/Psychological: No symptoms reported -: Yes All other systems reviewed and negative <EDEN SOSA IV - Last Filed: 11/06/19 05:44> Physical Exam - Vital signs Interpretation: Hypertensive - General General appearance: Alert, Other - Appears uncomfortable - HEENT Head: Normocephalic, Atraumatic Eyes: Normal Pupils: PERRL - Respiratory Respiratory status: No respiratory distress Chest status: Nontender Breath sounds: Normal Chest palpation: Normal - Cardiovascular Rhythm: Regular Heart sounds: Normal auscultation Murmur: No Friction rub: No Gallop: None auscultated - Abdominal Inspection: Normal Distension: No distension Bowel sounds: Normal Tenderness: Nontender - Abdomen soft Organomegaly: No organomegaly - Back Back: Normal, Nontender - Extremities General upper extremity: Normal inspection General lower extremity: Normal inspection - Neurological Neuro grossly intact: Yes Orientation: AAOx4 - Psychological Associated symptoms: Normal affect, Normal mood - Skin Skin Temperature: Warm Skin Moisture: Dry Skin Color: Normal <EDEN SOSA IV - Last Filed: 11/06/19 05:44> - Vital signs Vitals: Temp Pulse Resp BP Pulse Ox 98.0 F 68 20 172/86 H 99 11/06/19 03:07 11/06/19 03:07 11/06/19 03:07 11/06/19 03:07 11/06/19 03:07 Course - Laboratory Result Diagrams: 11/06/19 03:25 11/06/19 03:25 <EDEN SOSA IV - Last Filed: 11/06/19 05:44> - Laboratory Result Diagrams: 11/06/19 03:25 11/06/19 03:25 - Diagnostic Test Radiology reviewed: Image reviewed, Reports reviewed <NANI HOBBS - Last Filed: 11/06/19 09:25> - Vital Signs Vital signs: Temp Pulse Resp BP Pulse Ox 98.2 F 71 14 128/73 H 96 11/06/19 07:00 11/06/19 07:00 11/06/19 07:00 11/06/19 07:00 11/06/19 07:00 - Laboratory Laboratory results interpreted by mo: 11/06/19 11/06/19 03:25 03:25 MCV 98 H MCH 34.7 H Sodium 134.4 L BUN 6 L Glucose 116 H Lipase 2993.1 H - Diagnostic Test Radiology results interpreted by me: 11/06/19 09:24 CT scan of abdomen and pelvis with oral and IV contrast discloses that there is an acute pancreatitis and inflammation. With nikolas-pancreatic cryptitis fluid that travels down to the tail of the pancreas. (NANI HOBBS) - EKG Interpretation by Me Additional EKG results interpreted by me: 11/06/19 04:48 EKG obtained on 11/06/2027 at 0436 hrs. was interpreted by this MD. Findings: Sinus bradycardia with a rate of 59, normal axis, P waves proceed QRS complexes, QRS complexes appear narrow, there are no obvious patterns of ST segment elevation or depression present to suggest acute myocardial ischemia or infarction. Impression sinus bradycardia with nonspecific ST segments. (EDEN SOSA IV) Discharge <EDEN SOSA IV - Last Filed: 11/06/19 05:44> - Discharge Admitting Provider: Adali (Hospitalist) Unit Admitted: Medical Floor <NANI HOBBS - Last Filed: 11/06/19 09:25> - Discharge Clinical Impression: Recurrent pancreatitis, Elevated lipase, Nausea and vomiting in adult Condition: Fair Disposition: ADMITTED INPATIENT [facility]errals: [facility] [Primary Care [facility]] - Follow up as needed I personally performed the services described in the documentation, reviewed and edited the documentation which was dictated to the scribe in my presence, and it accurately records my words and actions.
--- NOTE | 2019-11-06 08:03 | EKG REPORT ---
SEVERITY:- ABNORMAL ECG - SINUS RHYTHM LEFT ANTERIOR FASCICULAR BLOCK CONSIDER ANTERIOR INFARCT : Confirmed by: Lizzy Patino 06-Nov-2019 08:02:24
--- NOTE | 2019-11-06 08:31 | RADIOLOGY REPORT (SQ) ---
EXAM DESCRIPTION: CT ABD/PELVIS WITH IV ORAL IMAGES COMPLETED DATE/TIME: 11/06/2019 7:50 am REASON FOR STUDY: abdominal pain, elevated lipase COMPARISON: CT of the abdomen pelvis with contrast from 08/07/2019. TECHNIQUE: CT scan of the abdomen and pelvis performed using helical scanning technique with dynamic intravenous contrast injection. No oral contrast. Images reviewed with lung, soft tissue, and bone windows. Reconstructed coronal and sagittal MPR images reviewed. Delayed images for evaluation of the urinary system also acquired. All images stored on PACS. All CT scanners at this facility use dose modulation, iterative reconstruction, and/or weight based d osing when appropriate to reduce radiation dose to as low as reasonably achievable (ALARA). [facility]: Dose Right [facility]: CareDose [facility]: Dose Right [facility]: Teradose 4D [facility]: [employer] CONTRAST TYPE AND DOSE: 77 mL Omnipaque 350- low osmolar. RENAL FUNCTION: Creatinine 0.64 milligrams/deciliter RADIATION DOSE: CT Rad equipment meets quality standard of care and radiation dose reduction techniq ues were employed. CTDIvol: 4.9 - 5.7 mGy. DLP: 570 mGy-cm. LIMITATIONS: None. FINDINGS: LOWER CHEST: No acute findings. LIVER: The relative hypoattenuation of the hepatic parenchyma compared to the splenic parenchyma on t he portal venous phase is suggestive of the line hepatic steatosis. The portal veins are patent. Th ere is no hepatic mass. SPLEEN: No splenomegaly or splenic mass. PANCREAS: There is a moderate amount of peripancreatic fluid and along the inner surface of the pancr eatic tail there is a hypodense collection that has increased in size from 08/07/2019 and measures 2.8 x 2.8 cm compared to 1.6 x 1.6 cm on the prior CT. There is no perfusion defect of the pancreatic pa renchyma or dilatation of the pancreatic duct. The periprosthetic fluid extends into the space adjac ent to the lesser curvature of the stomach. GALLBLADDER: No abnormality that is apparent on CT. ADRENAL GLANDS: No mass or asymmetry RIGHT KIDNEY AND URETER: No solid masses. No calcifications. No hydronephrosis or hydroureter. LEFT KIDNEY AND URETER: No solid masses. No calcifications. No hydronephrosis or hydroureter. AORTA AND VESSELS: The splenic vein is occluded and the patient has developed a network of collateral s in the left upper quadrant. RETROPERITONEUM: No retroperitoneal adenopathy, hemorrhage or mass. BOWEL AND PERITONEAL CAVITY: Colonic diverticulosis. There is no bowel obstruction, bowel wall thick ening or pericolonic/ perienteric inflammation. There is no mesenteric adenopathy, pneumatosis or fr ee intraperitoneal gas. APPENDIX: Normal. PELVIS: The urinary bladder is normal in appearance. The prostate gland is normal in size. There is no pelvic mass. ABDOMINAL WALL: No mass or hernia. BONES: No fracture osseous lesion. OTHER: No other finding. IMPRESSION: 1. Findings as described above consistent with an acute pancreatitis with an enlarging p eripancreatic fluid collection along the inner surface of the pancreatic tail that measures 2.8 x 2.8 cm (image 21 of series 3). There is no perfusion defect of the pancreatic parenchymal or dilatation of the pancreatic duct. 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 3. Other secondary findings as detailed above. TECHNICAL DOCUMENTATION: JOB ID: [id number] Quality ID # [id number]: Final reports with documentation of one or more dose reduction techniques (e.g., Au tomated exposure control, adjustment of the mA and/or kV according to patient size, use of iterative reconstruction technique) 2010 [employer]- All Rights Reserved Reading location - IP/workstation name: [email or web address]
--- NOTE | 2019-11-06 09:45 | ER Document Report ---
Doctor's Note Notes: 11/06/19 09:43 Patient signed out to me by Dr. wolfe. At the time pending CT scan results of the CT scan of abdomen and pelvis. CT scan results discloses acute pancreatitis with peripancreatic fluid gutters from the head down to the tail. No other acute process noted no obstruction. Examined patient and patient has mid gastric abdominal pain with guarding no rebound. Patient has been given additional IV morphine and Zofran for his pain and nausea. Discussed admission with Dr. Liriano who assigned the admission to Gaye Alvarado. Patient has been accepted by the hospitalist service for admission to the hospital to the medical floor.
[2019-11-06] MEDS ORDERED: ONDANSETRON HCL INJ/PF 4 MG/2 ML SDV IV PRN (09:50)
[2019-11-06] MEDS ORDERED: ACETAMINOPHEN 325 MG TABLET PO PRN (09:50)
[2019-11-06] MEDS ORDERED: ALBUTEROL SULFATE 0.083% NEB 2.5 MG/3 ML AMPUL NEB PRN (09:50)
[2019-11-06] MEDS ORDERED: PROMETHAZINE HCL INJ 25 MG/1 ML VIAL IV PRN (09:50)
[2019-11-06] MEDS ORDERED: ACETAMINOPHEN 650 MG SUPP.RECT PR PRN (09:50)
[2019-11-06] MEDS ORDERED: LORAZEPAM INJ 2 MG/1 ML VIAL IV PRN (09:54)
[2019-11-06] MEDS ORDERED: HYDRALAZINE HCL INJ/PF 20 MG/1 ML SDV IV PRN (09:55)
[2019-11-06] MEDS ORDERED: FAMOTIDINE INJ/PF 20 MG/2 ML SDV IV SCH (10:00)
--- NOTE | 2019-11-06 10:22 | PDOC H&P ---
History of Present Illness Admission Date/PCP: [facility] Patient complains of: abdominal pain History of Present Illness: CLAUDIO LEOS is a 59 year old male with a past medical history of COPD, hypertension, recurrent pancreatitis, tobacco and alcohol dependence who presented to the emergency department with a complaint of sudden onset abdominal pain in the epigastric region yesterday morning associated with nausea following binge drinking 2 days prior. He reports the symptoms are similar to prior episode of pancreatitis. Evaluation in the emergency department revealed stable vital signs, unremarkable CBC and chemistry, lipase 2900, negative urinalysis, and negative serum alcohol. CT ABD/Pelvis revealed hepatic steatosis, acute pancreatitis within an enlarged peripancreatic fluid collection along the inner surface of the pancreatic tail measuring 2.8 x 2.8 cm. He was provided IV fluid bolus and morphine. He is referred to the hospitalist service for admission and management of the above-stated complaints and findings. Past Medical History Cardiac Medical History: Reports: Hypertension Denies: Coronary Artery Disease, Hyperlipidema, Peripheral Vascular Disease Pulmonary Medical History: Reports: Chronic Obstructive Pulmonary Disease (COPD) Denies: Asthma EENT Medical History: Reports: None Neurological Medical History: Reports: None Endocrine Medical History: Reports: None Renal/ Medical History: Reports: None Malignancy Medical History: Reports: None GI Medical History: Reports: Other - Pancreatitis Denies: Cirrhosis, Hepatitis Musculoskeltal Medical History: Reports: None Skin Medical History: Reports: None Psychiatric Medical History: Reports: Tobacco Dependency Denies: Depression Traumatic Medical History: Reports: None Hematology: Reports: None Infectious Medical History: Reports: None Past Surgical History Past Surgical History: Reports: Tonsillectomy Social History Information Source: Patient Lives with: Family Smoking Status: Current Every Day Smoker Cigarettes Packs Per Day: 2 Frequency of Alcohol Use: Heavy - Binge drinker Hx Recreational Drug Use: Yes Drugs: Marijuana Hx Prescription Drug Abuse: No - Advance Directive Resuscitation Status: Full Code Family History Family History: Reviewed & Not Pertinent, COPD, Malignancy - father Parental Family History Reviewed: Yes Children Family History Reviewed: Yes Sibling(s) Family History Reviewed.: Yes Medication/Allergy Home Medications: Amlodipine Besylate [Norvasc 2.5 mg Tablet] 5 mg PO DAILY #0 12/27/18 Ondansetron [Zofran Odt 4 mg Tablet] 1 - 2 tab PO Q4H PRN #15 tab.rapdis 08/07/19 Oxycodone HCl [Oxycontin Ir 5 Mg Tablet] 1 - 2 mg PO Q4H PRN #15 tablet 08/07/19 Albuterol Sulfate [Proair HFA Inhalation Aerosol 8.5 gm MDI] 2 puff IH Q4H PRN #1 mdi 08/17/19 Azithromycin [Zithromax 250 mg Tablet] 250 mg PO DAILY #4 tablet 08/17/19 Prednisone [Deltasone 20 mg Tablet] See Protocol PO DAILY 5 Days #20 tablet 08/17/19 Allergies/Adverse Reactions: No Known Allergies Allergy (Verified 08/07/19 09:43) Review of Systems Constitutional: ABSENT: chills, fever(s), headache(s), weight gain, weight loss Eyes: ABSENT: visual disturbances Ears: ABSENT: hearing changes Cardiovascular: ABSENT: chest pain, dyspnea on exertion, edema, orthropnea, palpitations Respiratory: ABSENT: cough, hemoptysis Gastrointestinal: PRESENT: abdominal pain, nausea, vomiting. ABSENT: constipation, diarrhea, hematemesis, hematochezia Genitourinary: ABSENT: dysuria, hematuria Musculoskeletal: ABSENT: joint swelling Integumentary: ABSENT: rash, wounds Neurological: ABSENT: abnormal gait, abnormal speech, confusion, dizziness, focal weakness, syncope Psychiatric: ABSENT: anxiety, depression, homidical ideation, suicidal ideation Endocrine: ABSENT: cold intolerance, heat intolerance, polydipsia, polyuria Hematologic/Lymphatic: ABSENT: easy bleeding, easy bruising Physical Exam Vital Signs: Temp Pulse Resp BP Pulse Ox 98.2 F 71 14 128/73 H 96 11/06/19 07:00 11/06/19 07:00 11/06/19 07:00 11/06/19 07:00 11/06/19 07:00 Intake & Output 11/05/19 11/06/19 11/07/19 06:59 06:59 06:59 Intake Total 1000 Balance 1000 Weight 66.678 kg General appearance: PRESENT: no acute distress, disheveled, well-developed, well-nourished Head exam: PRESENT: atraumatic, normocephalic Eye exam: PRESENT: conjunctiva pink, EOMI, PERRLA. ABSENT: scleral icterus Mouth exam: PRESENT: moist, tongue midline Neck exam: ABSENT: carotid bruit, JVD, lymphadenopathy, thyromegaly Respiratory exam: PRESENT: clear to auscultation rosa, symmetrical, unlabored. ABSENT: rales, rhonchi, wheezes Cardiovascular exam: PRESENT: RRR, +S1, +S2. ABSENT: diastolic murmur, rubs, systolic murmur Pulses: PRESENT: normal dorsalis pedis pul Vascular exam: PRESENT: normal capillary refill GI/Abdominal exam: PRESENT: hypoactive bowel sounds, soft, tenderness. ABSENT: distended, guarding, mass, organolmegaly, rebound Rectal exam: PRESENT: deferred Extremities exam: PRESENT: full ROM. ABSENT: calf tenderness, clubbing, pedal edema Neurological exam: PRESENT: alert, awake, oriented to person, oriented to place, oriented to time, oriented to situation, CN II-XII grossly intact. ABSENT: motor sensory deficit Psychiatric exam: PRESENT: appropriate affect, normal mood. ABSENT: homicidal ideation, suicidal ideation Skin exam: PRESENT: dry, intact, warm. ABSENT: cyanosis, rash Results Laboratory Results: 11/06/19 03:25 11/06/19 03:25 11/06/19 11/06/19 11/06/19 03:25 03:25 03:25 WBC 9.8 RBC 4.73 Hgb 16.4 Hct 46.5 MCV 98 H MCH 34.7 H MCHC 35.3 RDW 13.9 Plt Count 293 Seg Neutrophils % 71.7 Sodium 134.4 L Potassium 4.3 Chloride 101 Carbon Dioxide 28 Anion Gap 5 BUN 6 L Creatinine 0.64 Est GFR ( Amer) > 60 Glucose 116 H Calcium 9.4 Total Bilirubin 0.9 AST 19 Alkaline Phosphatase 60 Total Protein 7.4 Albumin 4.3 Lipase 2993.1 H Urine Color YELLOW Urine Appearance CLEAR Urine pH 6.[address] 1.009 Urine Protein NEGATIVE Urine Glucose (UA) NEGATIVE Urine Ketones NEGATIVE Urine Blood NEGATIVE Urine Nitrite NEGATIVE Ur Leukocyte Esterase NEGATIVE Urine WBC (Auto) 0 Impressions: Abdomen/Pelvis CT 11/06/19 00:00 IMPRESSION: 1. Findings as described above consistent with an acute pancreatitis with an enlarging peripancreatic fluid collection along the inner surface of the pancreatic tail that measures 2.8 x 2.8 cm (image 21 of series 3). There is no perfusion defect of the pancreatic parenchymal or dilatation of the pancreatic duct. 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 3. Other secondary findings as detailed above. Assessment and Plan - Diagnosis (1) Acute pancreatitis Qualifiers: Pancreatitis type: alcohol induced Is this a current diagnosis for this admission?: Yes Plan: CT imagining reviewed. Patient is admitted to the medical floor on telemetry. NPO status Generous IVF Analgesics and Antiemetics as needed. (2) COPD (chronic obstructive pulmonary disease) Qualifiers: Is this a current diagnosis for this admission?: Yes Plan: Stable and without exacerbation at this time. Supplemental oxygen as needed. As needed nebulizer treatments. No indications for antibiotics or steroids. (3) Hypertension Qualifiers: Is this a current diagnosis for this admission?: Yes Plan: Patient reports hypertension; does not know name of medication he utilizes at home. IV hydralazine as needed for BP control. (4) Tobacco dependence Is this a current diagnosis for this admission?: Yes Plan: Smoking cessation encouraged. Nicotine replacement therapies provided. (5) Alcohol abuse Is this a current diagnosis for this admission?: Yes Plan: Patient admits to binge drinking. Alcohol cessation encouraged. Monitor for evidence of withdrawal. - Time Time Spent with patient: 35 or more minutes Medications reviewed and adjusted accordingly: Yes Anticipated discharge: Home - Inpatient Certification I certify that my determination is in accordance with my understanding of Medicare's requirements for reasonable and necessary INPATIENT services [42 CFR 412.3e].: Yes Medical Necessity: Need For IV Fluids, Need for Pain Control, Risk of Diagnosis Which Will Require Inpatient Eval/Care/Monitoring
[2019-11-06] MEDS ORDERED: NICOTINE 21 MG/24 HR PATCH.TD24 TD ONE (10:30)
[2019-11-06] MEDS: FAMOTIDINE INJ/PF 20 MG/2 ML SDV IV SCH ×2 (11:21→22:18)
[2019-11-06] MEDS: MORPHINE SULFATE 10 MG/ML INJ IV PRN ×3 (13:55→22:18)
[2019-11-06] MEDS: NORMAL SALINE 1000 ML 1,000 ML IV PRN ×2 (14:06→18:55)
[2019-11-06] MEDS: HEPARIN SOD (PORCINE) 5,000 UNIT/ML 1 ML VIAL SUBCUT SCH ×2 (14:07→22:18)
[2019-11-07] MEDS: NORMAL SALINE 1000 ML 1,000 ML IV PRN ×5 (00:31→21:40)
[2019-11-07] MEDS: MORPHINE SULFATE 10 MG/ML INJ IV PRN ×3 (02:22→14:38)
[2019-11-07] MEDS: HEPARIN SOD (PORCINE) 5,000 UNIT/ML 1 ML VIAL SUBCUT SCH ×3 (05:47→21:41)
[2019-11-07 06:01] LABS: MEAN CORPUSCULAR HEMOGLOBIN 34.3 pg (27.0-33.4); MEAN CORPUSCULAR HGB CONC 34.5 g/dL (32.0-36.0); MEAN CORPUSCULAR VOLUME 100 fl (80-97); PLATELET COUNT 227 10^3/uL (150-450); RED BLOOD COUNT 4.02 10^6/uL (4.35-5.55); RED CELL DISTRIBUTION WIDTH 14.2 % (11.5-14.0); WHITE BLOOD COUNT 8.2 10^3/uL (4.0-10.5)
[2019-11-07 06:02] LABS: HEMOGLOBIN 13.8 g/dL (13.5-17.0)
[2019-11-07 06:18] LABS: ANION GAP 7 (5-19); BLOOD UREA NITROGEN 7 mg/dL (7-20); CALCIUM 8.2 mg/dL (8.4-10.2); CARBON DIOXIDE 22 mmol/L (22-30); CHLORIDE 106 mmol/L (98-107); POTASSIUM 4.1 mmol/L (3.6-5.0)
[2019-11-07 06:28] LABS: GLUCOSE 63 mg/dL (75-110)
[2019-11-07] MEDS ORDERED: MORPHINE SULFATE 10 MG/ML INJ IV PRN ×2 (07:51→17:16)
[2019-11-07] MEDS ORDERED: OXYCODONE-ACETAMINOPHEN 5-325 MG TABLET PO PRN (07:52)
[2019-11-07] MEDS: FAMOTIDINE INJ/PF 20 MG/2 ML SDV IV SCH ×2 (09:53→21:40)
[2019-11-07] MEDS ORDERED: MAGNESIUM HYDROXIDE SUSP 30 ML UDCUP PO PRN (17:17)
--- NOTE | 2019-11-07 17:26 | PDOC PROGRESS REPORT ---
Subjective Progress Note for:: 11/07/19 Subjective:: CLAUDIO LEOS is a 59 year old male with a past medical history of COPD, hypertension, recurrent pancreatitis, tobacco and alcohol dependence who was admitted 11/06/2019 with acute pancreatitis. Patient was seen on morning rounds. He is found resting in bed, comfortably, on room air. He reports that his abdominal pain is significantly improved. No nausea since last night. No episodes of emesis or diarrhea. He does asked to advance his diet today. He further denies fever, chest pain, dyspnea. No other questions or concerns at this time. No concerns per nursing. Reason For Visit: PANCREATITIS Physical Exam Vital Signs: Temp Pulse Resp BP Pulse Ox 98.5 F 78 18 141/68 H 94 11/07/19 11:08 11/07/19 14:00 11/07/19 11:08 11/07/19 11:08 11/07/19 11:08 Intake & Output 11/06/19 11/07/19 11/08/19 06:59 06:59 06:59 Intake Total 1000 3263 2716 Balance 1000 3263 2716 Weight 66.678 kg 65.3 kg General appearance: PRESENT: no acute distress, disheveled, well-developed, well-nourished Head exam: PRESENT: atraumatic, normocephalic Eye exam: PRESENT: conjunctiva pink, EOMI, PERRLA. ABSENT: scleral icterus Mouth exam: PRESENT: moist, tongue midline Teeth exam: PRESENT: poor dentation Neck exam: ABSENT: carotid bruit, JVD, lymphadenopathy, thyromegaly Respiratory exam: PRESENT: clear to auscultation rosa. ABSENT: rales, rhonchi, wheezes Cardiovascular exam: PRESENT: RRR. ABSENT: diastolic murmur, rubs, systolic murmur Vascular exam: PRESENT: normal capillary refill GI/Abdominal exam: PRESENT: normal bowel sounds, soft, tenderness - Epigastric. ABSENT: distended, guarding, mass, organolmegaly, rebound Rectal exam: PRESENT: deferred Extremities exam: PRESENT: full ROM. ABSENT: calf tenderness, clubbing, pedal edema Musculoskeletal exam: PRESENT: ambulatory Neurological exam: PRESENT: alert, awake, oriented to person, oriented to place, oriented to time, oriented to situation, CN II-XII grossly intact. ABSENT: motor sensory deficit Psychiatric exam: PRESENT: appropriate affect, normal mood. ABSENT: homicidal ideation, suicidal ideation Skin exam: PRESENT: dry, intact, warm. ABSENT: cyanosis, rash Results Laboratory Results: 11/07/19 05:28 11/07/19 05:28 11/07/19 11/07/19 05:28 05:28 WBC 8.2 RBC 4.02 L Hgb 13.8 D Hct 40.0 MCV 100 H MCH 34.3 H MCHC 34.5 RDW 14.2 H Plt Count 227 Sodium 134.7 L Potassium 4.1 Chloride 106 Carbon Dioxide 22 Anion Gap 7 BUN 7 Creatinine 0.58 Est GFR ( Amer) > 60 Glucose 63 L Calcium 8.2 L Lipase 793.3 H Impressions: Abdomen/Pelvis CT 11/06/19 00:00 IMPRESSION: 1. Findings as described above consistent with an acute pancreatitis with an enlarging peripancreatic fluid collection along the inner surface of the pancreatic tail that measures 2.8 x 2.8 cm (image 21 of series 3). There is no perfusion defect of the pancreatic parenchymal or dilatation of the pancreatic duct. 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 3. Other secondary findings as detailed above. Assessment and Plan - Diagnosis (1) Acute pancreatitis Qualifiers: Pancreatitis type: alcohol induced Is this a current diagnosis for this admission?: Yes Plan: CT imagining reviewed. Lipase 2993-> 793 Patient is admitted to the medical floor on telemetry. Trial soft/lo residue diet w/ increased discomfort. Resume clear liquids. Generous IVF Analgesics and Antiemetics as needed. (2) COPD (chronic obstructive pulmonary disease) Qualifiers: Is this a current diagnosis for this admission?: Yes Plan: Stable and without exacerbation at this time. Continue home dose Spiriva Supplemental oxygen as needed. As needed nebulizer treatments. No indications for antibiotics or steroids. (3) Hypertension Qualifiers: Is this a current diagnosis for this admission?: Yes Plan: Continue home dose amlodipine IV hydralazine as needed for BP control. Provide adequate pain control (4) Tobacco dependence Is this a current diagnosis for this admission?: Yes Plan: Smoking cessation encouraged. Nicotine replacement therapies provided. (5) Alcohol abuse Is this a current diagnosis for this admission?: Yes Plan: Patient admits to binge drinking. Alcohol cessation encouraged. Monitor for evidence of withdrawal. - Time Time Spent with patient: 25-34 minutes Medications reviewed and adjusted accordingly: Yes Anticipated discharge: Home Within: within 48 hours
[2019-11-07] MEDS: OXYCODONE-ACETAMINOPHEN 5-325 MG TABLET PO PRN (23:26)
[2019-11-08] MEDS: NORMAL SALINE 1000 ML 1,000 ML IV PRN ×2 (03:37→08:58)
[2019-11-08] MEDS: OXYCODONE-ACETAMINOPHEN 5-325 MG TABLET PO PRN ×2 (04:12→08:57)
[2019-11-08] MEDS: HEPARIN SOD (PORCINE) 5,000 UNIT/ML 1 ML VIAL SUBCUT SCH (05:17)
[2019-11-08 05:37] LABS: HEMATOCRIT 38.2 % (37.9-51.0); HEMOGLOBIN 12.9 g/dL (13.5-17.0); MEAN CORPUSCULAR HEMOGLOBIN 33.3 pg (27.0-33.4); MEAN CORPUSCULAR HGB CONC 33.7 g/dL (32.0-36.0); MEAN CORPUSCULAR VOLUME 99 fl (80-97); PLATELET COUNT 215 10^3/uL (150-450); RED BLOOD COUNT 3.86 10^6/uL (4.35-5.55); RED CELL DISTRIBUTION WIDTH 13.9 % (11.5-14.0); WHITE BLOOD COUNT 7.6 10^3/uL (4.0-10.5)
[2019-11-08 05:59] LABS: BLOOD UREA NITROGEN 3 mg/dL (7-20); GLUCOSE 97 mg/dL (75-110); POTASSIUM 3.6 mmol/L (3.6-5.0)
[2019-11-08 06:04] LABS: ANION GAP 5 (5-19); CARBON DIOXIDE 24 mmol/L (22-30); CHLORIDE 104 mmol/L (98-107)
[2019-11-08] MEDS ORDERED: (PENDING PHARMACY ID) (Tiotropium Bromide [Spiriva Handihaler 5 Cap/Kit (18 Mcg/Cap)] 1 PU IH SCH (08:00)
[2019-11-08] MEDS ORDERED: UMECLIDINIUM BROMIDE 62.5 MCG/DOSE IH SCH (08:00)
[2019-11-08] MEDS ORDERED: AMLODIPINE BESYLATE 2.5 MG TABLET PO SCH (08:00)
[2019-11-08] MEDS ORDERED: POLYETHYLENE GLYCOL 3350 POWDER 17 GM/1 PACKET PO SCH (10:00)
[2019-11-08] MEDS ORDERED: DOCUSATE SODIUM 100 MG CAPSULE PO SCH (10:00)
[2019-11-08] MEDS: FAMOTIDINE INJ/PF 20 MG/2 ML SDV IV SCH (10:13)
[2019-11-08 13:15] VITALS: BP 135/68
--- NOTE | 2019-11-08 16:27 | PDOC DISCHARGE SUMMARY ---
Impression - Admit/DC Date/PCP Admission Date/Primary Care Provider: 11/06/19 09:57 [facility] Discharge Date: 11/08/19 - Discharge Diagnosis (1) Acute pancreatitis Is this a current diagnosis for this admission?: Yes (2) COPD (chronic obstructive pulmonary disease) Is this a current diagnosis for this admission?: Yes (3) Hypertension Is this a current diagnosis for this admission?: Yes (4) Tobacco dependence Is this a current diagnosis for this admission?: Yes (5) Alcohol abuse Is this a current diagnosis for this admission?: Yes - Additional Information Resuscitation Status: Full Code Discharge Diet: As Tolerated Discharge Activity: Activity As Tolerated, Balance Activity w/Rest Referrals: [facility] [Primary Care Provider] - (The [place] Appointment system is down due to upgrade. Please contact the clinic to schedule follow-up care. Thank you and have a fabulous day.) Prescriptions: Ondansetron HCl [Zofran 8 mg Tablet] 8 mg PO Q8HP PRN 4 Days #12 tablet PRN Reason: Home Medications: Amlodipine Besylate [Norvasc 2.5 mg Tablet] 2.5 mg PO QAM 11/06/19 Tiotropium [place] [Spiriva Handihaler 5 Cap/Kit (18 Mcg/Cap)] 1 puff IH QAM 11/06/19 Ondansetron HCl [Zofran 8 mg Tablet] 8 mg PO Q8HP PRN 4 Days #12 tablet 11/08/19 Oxycodone HCl/Acetaminophen [Percocet 5-325 mg Tablet] 1 tab PO Q4HP PRN #15 tab 11/09/19 Promethazine HCl [Phenergan 25 mg Supp.rect] 25 mg OR Q4HP PRN #12 supp.rect 11/09/19 History of Present Illiness History of Present Illness: As per admitting physicians note CLAUDIO LEOS is a 59 year old male with a past medical history of COPD, hypertension, recurrent pancreatitis, tobacco and alcohol dependence who presented to the emergency department with a complaint of sudden onset abdominal pain in the epigastric region yesterday morning associated with nausea following binge drinking 2 days prior. He reports the symptoms are similar to prior episode of pancreatitis. Evaluation in the emergency department revealed stable vital signs, unremarkable CBC and chemistry, lipase 2900, negative urinalysis, and negative serum alcohol. CT ABD/Pelvis revealed hepatic steatosis, acute pancreatitis within an enlarged peripancreatic fluid collection along the inner surface of the pancreatic tail measuring 2.8 x 2.8 cm. Hospital Course Hospital Course: (1) Acute pancreatitis Most likely alcoholic hepatitis given history of EtOH abuse. Was admitted to the medical floor on telemetry started on aggressive volume with severe global volume status. Opioid and non-opioid analgesics, antiemetics. Diet advance as tolerated. P.o. tolerant having normal bowel and bladder movement at time of discharge. Denies any abdominal pain. Vitals WNL. Afebrile. (2) COPD (chronic obstructive pulmonary disease) Stable and without exacerbation at this time. Supplemental oxygen as needed. As needed nebulizer treatments. No indications for antibiotics or steroids. (3) Hypertension Controlled. Continue home dose amlodipine IV hydralazine as needed for BP control. (4) Tobacco dependence Smoking cessation encouraged. Nicotine replacement therapies provided. (5) Alcohol abuse Patient admits to binge drinking. Alcohol cessation encouraged. Monitor for evidence of withdrawal. Physical Exam Vital Signs: Temp Pulse Resp BP Pulse Ox 98.1 F 63 18 135/68 H 92 11/08/19 13:14 11/08/19 13:14 11/08/19 13:14 11/08/19 13:14 11/08/19 13:14 Intake & Output 11/07/19 11/08/19 11/09/19 06:59 06:59 06:59 Intake Total 3263 6062 1750 Balance 3263 6062 1750 Weight 65.3 kg 65.8 kg General appearance: PRESENT: no acute distress, well-developed, well-nourished Head exam: PRESENT: atraumatic, normocephalic Respiratory exam: PRESENT: clear to auscultation rosa. ABSENT: rales, rhonchi, wheezes Cardiovascular exam: PRESENT: RRR. ABSENT: diastolic murmur, rubs, systolic murmur GI/Abdominal exam: PRESENT: normal bowel sounds, soft. ABSENT: distended, guarding, mass, organolmegaly, rebound, tenderness Neurological exam: PRESENT: alert, awake, oriented to person, oriented to place, oriented to time, oriented to situation, CN II-XII grossly intact. ABSENT: motor sensory deficit Results Laboratory Results: WBC 7.6 10^3/uL (4.0-10.5) 11/08/19 05:14 RBC 3.86 10^6/uL (4.35-5.55) L 11/08/19 05:14 Hgb 12.9 g/dL (13.5-17.0) L 11/08/19 05:14 Hct 38.2 % (37.9-51.0) 11/08/19 05:14 MCV 99 fl (80-97) H 11/08/19 05:14 MCH 33.3 pg (27.0-33.4) 11/08/19 05:14 MCHC 33.7 g/dL (32.0-36.0) 11/08/19 05:14 RDW 13.9 % (11.5-14.0) 11/08/19 05:14 Plt Count 215 10^3/uL (150-450) 11/08/19 05:14 Lymph % (Auto) 17.7 % (13-45) 11/06/19 03:25 [place] % (Auto) 7.3 % (3-13) 11/06/19 03:25 Eos % (Auto) 2.2 % (0-6) 11/06/19 03:25 Baso % (Auto) 1.1 % (0-2) 11/06/19 03:25 Absolute Neuts (auto) 7.0 10^3/uL (1.7-8.2) 11/06/19 03:25 Absolute Lymphs (auto) 1.7 10^3/uL (0.5-4.7) 11/06/19 03:25 Absolute Monos (auto) 0.7 10^3/uL (0.1-1.4) 11/06/19 03:25 Absolute Eos (auto) 0.2 10^3/uL (0.0-0.6) 11/06/19 03:25 Absolute Basos (auto) 0.1 10^3/uL (0.0-0.2) 11/06/19 03:25 Seg Neutrophils % 71.7 % (42-78) 11/06/19 03:25 Sodium 133.1 mmol/L (137-145) L 11/08/19 05:14 Potassium 3.6 mmol/L (3.6-5.0) 11/08/19 05:14 Chloride 104 mmol/L (98-107) 11/08/19 05:14 Carbon Dioxide 24 mmol/L (22-30) 11/08/19 05:14 Anion Gap 5 (5-19) 11/08/19 05:14 BUN 3 mg/dL (7-20) L 11/08/19 05:14 Creatinine 0.53 mg/dL (0.52-1.25) 11/08/19 05:14 Est GFR ( Amer) > 60 (>60) 11/08/19 05:14 Est GFR (MDRD) Non-Af > 60 (>60) 11/08/19 05:14 Glucose 97 mg/dL (75-110) 11/08/19 05:14 POC Glucose 72 mg/dL (70-110) 11/07/19 06:36 Calcium 8.0 mg/dL (8.4-10.2) L 11/08/19 05:14 Total Bilirubin 0.9 mg/dL (0.2-1.3) 11/06/19 03:25 Direct Bilirubin 0.0 mg/dL (0.0-0.4) 11/06/19 03:25 Neonat Total Bilirubin Not Reportable 11/06/19 03:25 Neonat Direct Bilirubin Not Reportable 11/06/19 03:25 Neonat Indirect Bili Not Reportable 11/06/19 03:25 AST 19 U/L (17-59) 11/06/19 03:25 ALT 10 U/L (<50) 11/06/19 03:25 Alkaline Phosphatase 60 U/L (38-126) 11/06/19 03:25 Total Protein 7.4 g/dL (6.3-8.2) 11/06/19 03:25 Albumin 4.3 g/dL (3.5-5.0) 11/06/19 03:25 Lipase 553.4 U/L (23-300) H 11/08/19 05:14 Urine Color YELLOW 11/06/19 03:25 Urine Appearance CLEAR 11/06/19 03:25 Urine pH 6.0 (5.0-9.0) 11/06/19 03:25 Ur Specific [place] 1.009 11/06/19 03:25 Urine Protein NEGATIVE mg/dL (NEGATIVE) 11/06/19 03:25 Urine Glucose (UA) NEGATIVE mg/dL (NEGATIVE) 11/06/19 03:25 Urine Ketones NEGATIVE mg/dL (NEGATIVE) 11/06/19 03:25 Urine Blood NEGATIVE (NEGATIVE) 11/06/19 03:25 Urine Nitrite NEGATIVE (NEGATIVE) 11/06/19 03:25 Urine Bilirubin NEGATIVE (NEGATIVE) 11/06/19 03:25 Urine Urobilinogen NEGATIVE mg/dL (<2.0) 11/06/19 03:25 Ur Leukocyte Esterase NEGATIVE (NEGATIVE) 11/06/19 03:25 Urine WBC (Auto) 0 /HPF 11/06/19 03:25 Urine Mucus (Auto) OCC /LPF 11/06/19 03:25 Urine Ascorbic Acid NEGATIVE (NEGATIVE) 11/06/19 03:25 Serum Alcohol < 10 mg/dL (NONE DETECTED) 11/06/19 03:25 Impressions: Abdomen/Pelvis CT 11/06/19 00:00 IMPRESSION: 1. Findings as described above consistent with an acute pancreatitis with an enlarging peripancreatic fluid collection along the inner surface of the pancreatic tail that measures 2.8 x 2.8 cm (image 21 of series 3). There is no perfusion defect of the pancreatic parenchymal or dilatation of the pancreatic duct. 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 3. Other secondary findings as detailed above. Stroke Is this a Stroke Patient?: No Acute Heart Failure - Is this a Heart Failure Patient?: No
== END 2019-11-08 13:39 | disposition home or self-care (01) | DRG 440 ==
LOC: ER 03:03 → EH 09:57 → 4S 13:45
PROVIDERS: ADMIT Family Medicine; ATTEND Internal Medicine
DX: K85.20 Alcohol induced acute pancreatitis without necrosis or infection (principal); J44.9 Chronic obstructive pulmonary disease, unspecified; I10 Essential (primary) hypertension; F10.10 Alcohol abuse, uncomplicated; F17.210 Nicotine dependence, cigarettes, uncomplicated
CPT/HCPCS: 36415; 74177; 80048; 80053; 80307; 81001; 82962; 83690; 85025; 85027; 93005; 93010; 96361; 96374; 96375; 96376; 99285; J1644; J2270; J2405; J2550; J3490; J7030; S0028

== ENCOUNTER 2019-11-09 02:35 | Emergency (ER) | payer OTHER ==
[2019-11-09 03:43] LABS: ABSOLUTE EOSINOPHILS # (AUTO) 0.1 10^3/uL (0.0-0.6); ABSOLUTE MONOCYTES (AUTO) 0.9 10^3/uL (0.1-1.4); ABSOLUTE NEUT (AUTO) 7.2 10^3/uL (1.7-8.2); BASOPHILS % (AUTO) 0.4 % (0-2); EOSINOPHILS % (AUTO) 1.6 % (0-6); HEMATOCRIT 41.9 % (37.9-51.0); HEMOGLOBIN 14.8 g/dL (13.5-17.0); MEAN CORPUSCULAR HEMOGLOBIN 34.5 pg (27.0-33.4); MEAN CORPUSCULAR HGB CONC 35.4 g/dL (32.0-36.0); MEAN CORPUSCULAR VOLUME 97 fl (80-97); MONOCYTES % (AUTO) 9.8 % (3-13); PLATELET COUNT 219 10^3/uL (150-450); RED CELL DISTRIBUTION WIDTH 13.6 % (11.5-14.0); SEGMENTED NEUTROPHILS % (AUTO) 77.2 % (42-78); TOTAL CELLS COUNTED % (AUTO) 100 %; WHITE BLOOD COUNT 9.3 10^3/uL (4.0-10.5)
[2019-11-09 04:02] LABS: ALBUMIN 3.9 g/dL (3.5-5.0); ALKALINE PHOSPHATASE 59 U/L (38-126); ANION GAP 8 (5-19); ASPARTATE AMINO TRANSFERASE 19 U/L (17-59); BILIRUBIN,TOTAL 0.4 mg/dL (0.2-1.3); CALCIUM 9.2 mg/dL (8.4-10.2); CARBON DIOXIDE 28 mmol/L (22-30); CHLORIDE 99 mmol/L (98-107); GLUCOSE 137 mg/dL (75-110); POTASSIUM 3.8 mmol/L (3.6-5.0)
[2019-11-09 04:03] LABS: BLOOD UREA NITROGEN < 2 mg/dL (7-20)
[2019-11-09 04:31] LABS: APPEARANCE,URINE CLEAR; BILIRUBIN,URINE NEGATIVE (NEGATIVE); COLOR,URINE STRAW; GLUCOSE, URINE NEGATIVE (NEGATIVE); KETONES,URINE NEGATIVE (NEGATIVE); LEUKOCYTE ESTERASE,URINE NEGATIVE (NEGATIVE); NITRITE,URINE NEGATIVE (NEGATIVE); PROTEIN,URINE NEGATIVE (NEGATIVE); URINE SPECIFIC GRAVITY 1.002; UROBILINOGEN,URINE NEGATIVE mg/dL (<2.0)
[2019-11-09] MEDS ORDERED: HYDROMORPHONE HCL INJ/PF 2 MG/ML AMPULE IV ONE (06:22)
[2019-11-09] MEDS ORDERED: ONDANSETRON HCL INJ/PF 4 MG/2 ML SDV IV ONE (06:22)
[2019-11-09] MEDS ORDERED: NORMAL SALINE 1000 ML 1,000 ML IV ONE (06:22)
--- NOTE | 2019-11-09 06:25 | ER Document Report ---
ED General - General Chief Complaint: Abdominal Pain Stated Complaint: ABDOMINAL PAIN Time Seen by Provider: 11/09/19 06:10 Primary Care Provider: ANGELA CROWELL [Primary Care Provider] - Follow up as needed Notes: 59-year-old male presents with upper abdominal pain identical to pancreatitis moderate and with some subjective abdominal swelling. Stooling normally. Discharged yesterday after a 3-day admission for recurrent alcoholic pancreatitis, on discharge had no pain and was eating solid foods and was not discharged with any medication for pain Got home drink a Gatorade and had some chicken soup and the pain recurred. He is not actively vomiting. He has no fever. Pain is identical to previous. TRAVEL OUTSIDE OF THE [place] IN LAST 30 DAYS: No - Related Data Allergies/Adverse Reactions: No Known Allergies Allergy (Verified 11/09/19 02:54) Past Medical History - General Information source: Patient - Social History Smoking Status: Current Every Day Smoker Smoking Education Provided: Yes - The patient ED visit today was directly related to their abuse of tobacco. Frequency of alcohol use: None Drug Abuse: None Family History: Reviewed & Not Pertinent, COPD, Malignancy - father Patient has homicidal ideation: No - Past Medical History Cardiac Medical History: Reports: Hx Hypertension Denies: Hx Coronary Artery Disease, Hx Hypercholesterolemia, Hx Peripheral V ascular Disease Pulmonary Medical History: Reports: Hx COPD Denies: Hx Asthma Renal/ Medical History: Denies: Hx Peritoneal Dialysis GI Medical History: Reports: Hx Pancreatitis. Denies: Hx Cirrhosis, Hx Hepatitis Psychiatric Medical History: Denies: Hx Depression Infectious Medical History: Denies: Hx Hepatitis Past Surgical History: Reports: Hx Tonsillectomy - Immunizations Hx Diphtheria, Pertussis, Tetanus Vaccination: Yes Review of Systems - Review of Systems Notes: REVIEW OF SYSTEMS GEN: Denies fever, chills, weight loss ENT: Denies sore throat, nasal discharge, ear pain EYES: Denies blurry vision, eye pain, discharge CV: Denies chest pain, palpitations, edema RESP: Denies cough, shortness of breath, wheezing GI: Denies abdominal pain, nausea, vomiting, diarrhea MSK: Denies joint pain/swelling, edema, SKIN: Denies rash, skin lesions LYMPH: Denies swollen glands/lymph nodes NEURO: Denies headache, focal weakness or numbness, dizziness PSYCH: Denies depression, suicidal or homicidal ideation PHYSICAL EXAMINATION General: No acute distress, well-nourished Head: Atraumatic, normocephalic ENT: Mouth normal, oropharynx moist, no exudates or tonsillar enlargement Eyes: Conjunctiva normal, pupils equal, lids normal Neck: No JVD, supple, no guarding CVS: Normal rate, regular rhythm, no murmurs Resp: No resp distress, equal and normal breath sounds bilaterally GI: Nondistended, soft, no tenderness to palpation, no rebound or guarding Ext: No deformities, no edema, normal range of motion in upper and lower ext Back: No CVA or midline TTP Skin: No rash, warm Lymphatic: No lymphadeopathy noted Neuro: Awake, alert. Face symmetric. GCS 15. Physical Exam - Vital signs Vitals: Temp Pulse Resp BP Pulse Ox 98.1 F 78 20 161/82 H 96 11/09/19 02:51 11/09/19 02:51 11/09/19 02:51 11/09/19 02:51 11/09/19 02:51 Course - Re-evaluation Re-evalutation: 11/09/19 15:27 Abdominal pain, discharge over pancreatitis. Lipase is still not at the point of pancreatitis in the patient is much better after medication hydration. I think he needs to deal with diet at home, recommended n.p.o. for 12 hours follow a liquid diet followed by slow advancement in diet. I added pain medicine to his regimen as well as nausea medication. He will be discharged home stable condition after feeling better with ED intervention and will follow up with primary care. Not drinking alcohol currently. I have discussed with the patient there likely diagnosis, aftercare plan, follow -up plans and my usual and customary return precautions. They verbalized understanding of this. - Vital Signs Vital signs: Temp Pulse Resp BP Pulse Ox 98.0 F 73 17 147/83 H 96 11/09/19 07:16 11/09/19 07:16 11/09/19 04:22 11/09/19 07:16 11/09/19 07:16 - Laboratory Result Diagrams: 11/09/19 03:33 11/09/19 03:33 Laboratory results interpreted by me: 11/09/19 11/09/19 03:33 03:33 RBC 4.30 L MCH 34.5 H Lymph % (Auto) 11.0 L Sodium 134.5 L BUN < 2 L Creatinine 0.51 L Glucose 137 H Lipase 403.1 H Discharge - Discharge Clinical Impression: Acute alcoholic pancreatitis Qualifiers: Acute pancreatitis complication: unspecified Qualified Code(s): K85.20 - Alcohol induced acute pancreatitis without necrosis or infection Condition: Good Disposition: HOME, SELF-CARE Instructions: Pancreatitis ([facility]) Prescriptions: Oxycodone HCl/Acetaminophen [Percocet 5-325 mg Tablet] 1 tab PO Q4HP PRN #15 tab PRN Reason: Promethazine HCl [Phenergan 25 mg Supp.rect] 25 mg HI Q4HP PRN #12 supp.rect PRN Reason: Forms: Return to Work [facility] - Follow up as needed
[2019-11-09 07:19] VITALS: BP 147/83
== END 2019-11-09 07:19 | disposition home or self-care (01) ==
LOC: ER 02:35
DX: K85.20 Alcohol induced acute pancreatitis without necrosis or infection (principal); R10.9 Unspecified abdominal pain; R10.10 Upper abdominal pain, unspecified; R19.00 Intra-abdominal and pelvic swelling, mass and lump, unspecified site; F17.210 Nicotine dependence, cigarettes, uncomplicated; I10 Essential (primary) hypertension; J44.9 Chronic obstructive pulmonary disease, unspecified
CPT/HCPCS: 99284; 96361; 96374; 96375; 36415; 83690; 85025; 80053; 81001; J1170; J2405; J7030

== ENCOUNTER 2019-12-23 08:00 | Emergency (ER) | payer OTHER ==
[2019-12-23 08:06] VITALS: BP 131/84
--- NOTE | 2019-12-23 09:38 | ER Document Report ---
ED General - General Chief Complaint: Abdominal Pain Stated Complaint: ABDOMINAL PAIN Primary Care Provider: MERVAT,ANGELA [Primary Care Provider] - Follow up as needed Notes: Patient is a 59-year-old white male with a history of pancreatitis, COPD and hypertension who presents to the emergency department the chief complaint of epigastric abdominal discomfort that began early morning. He states that initially started as what felt like a routine stomachache. He states he had some barbecue prior and thought his stomach was upset from that. 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 He states this feels very similar to his prior episodes of pancreatitis. He denies heavy drinking but does still use alcohol. He is a current everyday smoker. Denies any abdominal surgical history. Denies any associated nausea, vomiting or diarrhea. Denies any skin changes or rash, denies any fever, chills or night sweats. TRAVEL OUTSIDE OF THE [place] IN LAST 30 DAYS: No - Related Data Allergies/Adverse Reactions: No Known Allergies Allergy (Verified 12/23/19 08:55) Past Medical History - Social History Smoking Status: Current Every Day Smoker Drug Abuse: Marijuana Family History: Reviewed & Not Pertinent, COPD, Malignancy - father Patient has homicidal ideation: No - Past Medical History Cardiac Medical History: Reports: Hx Hypertension Denies: Hx Coronary Artery Disease, Hx Hypercholesterolemia, Hx Peripheral Vascular Disease Pulmonary Medical History: Reports: Hx COPD Denies: Hx Asthma Renal/ Medical History: Denies: Hx Peritoneal Dialysis GI Medical History: Reports: Hx Pancreatitis. Denies: Hx Cirrhosis, Hx Hepatiti s Psychiatric Medical History: Denies: Hx Depression Infectious Medical History: Denies: Hx Hepatitis Past Surgical History: Reports: Hx Tonsillectomy - Immunizations Hx Diphtheria, Pertussis, Tetanus Vaccination: Yes Review of Systems - Review of Systems Constitutional: denies: Fever EENT: denies: Throat pain Cardiovascular: denies: Chest pain Respiratory: denies: Hemoptysis, Short of breath Gastrointestinal: Abdominal pain Genitourinary: denies: Pain Male Genitourinary: No symptoms reported Musculoskeletal: denies: Muscle pain Skin: denies: Change in color Hematologic/Lymphatic: denies: Easy bleeding Neurological/Psychological: denies: Lost consciousness Physical Exam - Vital signs Vitals: Temp Pulse Resp BP Pulse Ox 97.8 F 82 20 131/84 H 100 12/23/19 08:04 12/23/19 08:04 12/23/19 08:04 12/23/19 08:04 12/23/19 08:04 - General General appearance: Appears well, Alert In distress: None - HEENT Head: Normocephalic, Atraumatic Eyes: Normal Conjunctiva: No: Icteric Extraocular movements intact: Yes Eyelashes: Normal Pupils: PERRL Mucous membranes: Moist Neck: Supple - Respiratory Respiratory status: No respiratory distress Chest status: Nontender Breath sounds: Normal Chest palpation: Normal - Cardiovascular Rhythm: Regular Heart sounds: Normal auscultation - Abdominal Inspection: Normal Distension: No distension Bowel sounds: Normal Tenderness: Tender - Left upper and left lower quadrant, worse in the left upper Organomegaly: No organomegaly - Back Back: No: CVA tenderness - Extremities General upper extremity: Normal inspection, Nontender, Normal color, Normal ROM, Normal temperature General lower extremity: Normal inspection, Nontender, Normal color, Normal ROM, Normal temperature, Normal weight bearing. No: Leela's sign - Neurological Neuro grossly intact: Yes Cognition: Normal Orientation: AAOx4 - Psychological Associated symptoms: Normal affect, Normal mood - Skin Skin Temperature: Warm Skin Moisture: Dry Skin Color: Normal Course - Re-evaluation Re-evalutation: 12/23/19 14:25 Ultrasound evaluation showing a pseudocyst as compared with CT from prior. T here appears to be some enlargement in size though it is questionable if it is a comparison that is able to be correlated between CT and ultrasound. Patient's pain is well controlled and tolerating oral intake well. He does not require emergent drainage of pseudocyst. He will be referred to his primary Dr. Haas on Wednesday for reevaluation and referral to interventional radiology for consultation for drainage. He will remain on a clear liquid diet for the next 24 hours. We will send home on pain medicines and Zofran. Patient is agreeable to this plan. Discussed with Dr. Arevalo who agrees with plan of care. Counseled the patient regarding the importance of outpatient follow-up and adv ised to return here any ER immediately with any new, persistent or worsening symptoms. He verbalized understood and agreed. - Vital Signs Vital signs: Temp Pulse Resp BP Pulse Ox 97.8 F 82 20 131/84 H 100 12/23/19 08:04 12/23/19 08:04 12/23/19 08:04 12/23/19 08:04 12/23/19 08:04 - Laboratory Result Diagrams: 12/23/19 09:10 12/23/19 10:00 Laboratory results interpreted by me: 12/23/19 12/23/19 12/23/19 09:10 10:00 11:35 RDW 14.3 H Total Protein 8.7 H Lipase 869.1 H Urine Ketones TRACE H Discharge - Discharge Clinical Impression: Pancreatic pseudocyst Pancreatitis Qualifiers: Chronicity: acute Pancreatitis type: unspecified pancreatitis type Acute pancreatitis complication: unspecified Qualified Code(s): K85.90 - Acute pancreatitis without necrosis or infection, unspecified Condition: Stable Disposition: HOME, SELF-CARE Instructions: Pancreatitis ([facility]) Additional Instructions: Please call Dr. Haas on Wednesday for outpatient follow-up and referral to interventional radiology for evaluation and consultation regarding your pseudocyst on your pancreas. Please institute a clear liquid diet for the next 24 hours. Please return here or any ER immediately with any new, persistent or worsening symptoms. Prescriptions: Hydrocodone/Acetaminophen [[place] 5-325 mg Tablet] 2 tab PO Q6 PRN #12 tab PRN Reason: Ondansetron HCl [Zofran] 4 mg PO Q8 PRN #20 tablet PRN Reason: [facility]errals: [facility] [[facility]] - Follow up as needed
[2019-12-23 10:23] LABS: ABSOLUTE BASOPHILS # (AUTO) 0.1 10^3/uL (0.0-0.2); ABSOLUTE EOSINOPHILS # (AUTO) 0.2 10^3/uL (0.0-0.6); ABSOLUTE LYMPHOCYTES (AUTO) 1.6 10^3/uL (0.5-4.7); ABSOLUTE MONOCYTES (AUTO) 0.8 10^3/uL (0.1-1.4); ABSOLUTE NEUT (AUTO) 7.4 10^3/uL (1.7-8.2); BASOPHILS % (AUTO) 0.6 % (0-2); HEMATOCRIT 45.1 % (37.9-51.0); HEMOGLOBIN 15.6 g/dL (13.5-17.0); LYMPHOCYTES % (AUTO) 15.5 % (13-45); MEAN CORPUSCULAR HEMOGLOBIN 33.1 pg (27.0-33.4); MEAN CORPUSCULAR HGB CONC 34.5 g/dL (32.0-36.0); MEAN CORPUSCULAR VOLUME 96 fl (80-97); MONOCYTES % (AUTO) 8.1 % (3-13); PLATELET COUNT 367 10^3/uL (150-450); RED CELL DISTRIBUTION WIDTH 14.3 % (11.5-14.0); SEGMENTED NEUTROPHILS % (AUTO) 73.8 % (42-78); TOTAL CELLS COUNTED % (AUTO) 100 %
[2019-12-23 10:40] LABS: ALBUMIN 4.7 g/dL (3.5-5.0); ALKALINE PHOSPHATASE 85 U/L (38-126); ANION GAP 9 (5-19); ASPARTATE AMINO TRANSFERASE 24 U/L (17-59); BILIRUBIN,DIRECT 0.2 mg/dL (0.0-0.4); BILIRUBIN,TOTAL 0.8 mg/dL (0.2-1.3); BLOOD UREA NITROGEN 7 mg/dL (7-20); CALCIUM 9.6 mg/dL (8.4-10.2); CARBON DIOXIDE 26 mmol/L (22-30); CHLORIDE 103 mmol/L (98-107); GLUCOSE 92 mg/dL (75-110); POTASSIUM 4.5 mmol/L (3.6-5.0); TOTAL PROTEIN 8.7 g/dL (6.3-8.2)
[2019-12-23] MEDS ORDERED: MORPHINE SULFATE 10 MG/ML INJ IV ONE ×2 (11:41→13:51)
[2019-12-23] MEDS ORDERED: ONDANSETRON HCL INJ/PF 4 MG/2 ML SDV IV ONE (11:41)
[2019-12-23 11:53] LABS: APPEARANCE,URINE CLEAR; BILIRUBIN,URINE NEGATIVE (NEGATIVE); COLOR,URINE YELLOW; GLUCOSE, URINE NEGATIVE (NEGATIVE); KETONES,URINE TRACE mg/dL (NEGATIVE); PROTEIN,URINE NEGATIVE (NEGATIVE); URINE SPECIFIC GRAVITY 1.013; UROBILINOGEN,URINE NEGATIVE mg/dL (<2.0)
[2019-12-23] MEDS: NORMAL SALINE 1000 ML 1,000 ML IV PRN ×2 (11:59→12:01)
--- NOTE | 2019-12-23 13:53 | RADIOLOGY REPORT (SQ) ---
EXAM DESCRIPTION: U/S ABDOMEN LTD W/DOPPLER IMAGES COMPLETED DATE/TIME: 12/23/2019 1:20 pm REASON FOR STUDY: pancreatitis, abd pain COMPARISON: 2019. CT abdomen from October. TECHNIQUE: Dynamic and static grayscale images acquired of the abdomen and recorded on PACS. Edwardo castillo selected color Doppler and spectral images recorded. LIMITATIONS: None. FINDINGS: PANCREAS: Complex 4 cm cyst along the pancreas PA CT from October demonstrates a 2.8 cm colle ction. LIVER: No masses. Echotexture normal. LIVER VASCULATURE: Normal directional flow of the main portal vein and hepatic veins. GALLBLADDER: 2 mm polyp. No stones. ULTRASOUND-DETECTED HERNANDEZ'S SIGN: Negative. INTRAHEPATIC DUCTS AND COMMON DUCT: CBD and intrahepatic ducts normal caliber. No filling defects. INFERIOR VENA CAVA: Normal flow. AORTA: No aneurysm. RIGHT KIDNEY: Normal size. Normal echogenicity. No solid or suspicious masses. No hydronephrosis. No calcifications. PERITONEAL AND RIGHT PLEURAL SPACE: Ascites noted. Largest pocket in the right upper quadrant measur es close to 89 cc. OTHER: No other significant findings. IMPRESSION: 1. Cystic collection likely reflecting pseudo cyst scratch sec chronic pancreatic pseudocyst, slightl y progressive when compared to CT from last month. 2. Ascites. TECHNICAL DOCUMENTATION: JOB ID: [id number] [employer]- All Rights Reserved Reading location - IP/workstation name: [email or web address]
== END 2019-12-23 15:25 | disposition home or self-care (01) ==
LOC: ER 08:00
DX: K86.3 Pseudocyst of pancreas (principal); K85.90 Acute pancreatitis without necrosis or infection, unspecified; R10.13 Epigastric pain; F17.200 Nicotine dependence, unspecified, uncomplicated
CPT/HCPCS: 96376; 99284; 96361; 96374; 96375; 36415; 83690; 85025; 80053; 81001; 76705; 93976; J2270; J2405; J7030

== ENCOUNTER 2020-01-05 10:31 | Emergency (ER) | payer OTHER ==
[2020-01-05] MEDS ORDERED: ONDANSETRON HCL INJ/PF 4 MG/2 ML SDV IV ONE (11:18)
[2020-01-05] MEDS ORDERED: MORPHINE SULFATE 10 MG/ML INJ IV ONE (11:19)
[2020-01-05] MEDS ORDERED: NORMAL SALINE 1000 ML 1,000 ML IV ONE ×2 (11:19→13:14)
--- NOTE | 2020-01-05 11:21 | ER Document Report ---
ED Medical Screen (RME) - General Chief Complaint: Abdominal Pain Stated Complaint: ABDOMINAL PAIN Time Seen by Provider: 01/05/20 11:11 Primary Care Provider: ANGELA CROWELL [Primary Care Provider] - Follow up as needed Notes: Patient is a 59-year-old male with a history of alcoholic pancreatitis who presents the emergency department with abdominal pain. Patient states that his symptoms are getting progressively worse. States that he has pain in his upper abdomen and his left lateral abdomen. Ultrasound from previous visit shows that he has a cyst in his pancreas. Exam: Tenderness noted to mid upper abdomen. I have greeted and performed a rapid initial assessment of this patient. A comprehensive ED assessment and evaluation of the patient, analysis of test results and completion of medical decision making process will be conducted by an additional ED providers. TRAVEL OUTSIDE OF THE [place] IN LAST 30 DAYS: No - Related Data Allergies/Adverse Reactions: No Known Allergies Allergy (Verified 12/23/19 08:55) Past Medical History - Social History Frequency of alcohol use: None Drug Abuse: Marijuana - Past Medical History Cardiac Medical History: Reports: Hx Hypertension Denies: Hx Coronary Artery Disease, Hx Hypercholesterolemia, Hx Peripheral Vascular Disease Pulmonary Medical History: Reports: Hx COPD Denies: Hx Asthma Renal/ Medical History: Denies: Hx Peritoneal Dialysis GI Medical History: Reports: Hx Pancreatitis. Denies: Hx Cirrhosis, Hx Hepatitis Psychiatric Medical History: Denies: Hx Depression Infectious Medical History: Denies: Hx Hepatitis Past Surgical History: Reports: Hx Tonsillectomy - Immunizations Hx Diphtheria, Pertussis, Tetanus Vaccination: Yes Physical Exam - Vital signs Vitals: Temp Pulse Resp BP Pulse Ox 98.5 F 82 18 127/70 H 100 01/05/20 10:35 01/05/20 10:35 01/05/20 10:35 01/05/20 10:35 01/05/20 10:35 Course - Vital Signs Vital signs: Temp Pulse Resp BP Pulse Ox 98.5 F 82 18 127/70 H 100 01/05/20 10:35 01/05/20 10:35 01/05/20 10:35 01/05/20 10:35 01/05/20 10:35 - Laboratory Result Diagrams: 01/05/20 10:52 01/05/20 10:52 Doctor's Discharge - Discharge Referrals: ANGELA CROWELL [Primary Care Provider] - Follow up as needed
[2020-01-05 11:29] LABS: ABSOLUTE BASOPHILS # (AUTO) 0.1 10^3/uL (0.0-0.2); ABSOLUTE EOSINOPHILS # (AUTO) 0.1 10^3/uL (0.0-0.6); ABSOLUTE NEUT (AUTO) 8.5 10^3/uL (1.7-8.2); BASOPHILS % (AUTO) 0.7 % (0-2); EOSINOPHILS % (AUTO) 0.5 % (0-6); HEMATOCRIT 44.6 % (37.9-51.0); HEMOGLOBIN 15.4 g/dL (13.5-17.0); LYMPHOCYTES % (AUTO) 9.7 % (13-45); MEAN CORPUSCULAR HEMOGLOBIN 32.8 pg (27.0-33.4); MEAN CORPUSCULAR HGB CONC 34.6 g/dL (32.0-36.0); MEAN CORPUSCULAR VOLUME 95 fl (80-97); MONOCYTES % (AUTO) 9.2 % (3-13); PLATELET COUNT 352 10^3/uL (150-450); RED BLOOD COUNT 4.71 10^6/uL (4.35-5.55); RED CELL DISTRIBUTION WIDTH 14.4 % (11.5-14.0); SEGMENTED NEUTROPHILS % (AUTO) 79.9 % (42-78); TOTAL CELLS COUNTED % (AUTO) 100 %; WHITE BLOOD COUNT 10.7 10^3/uL (4.0-10.5)
[2020-01-05 11:31] LABS: ALBUMIN 4.5 g/dL (3.5-5.0); ALKALINE PHOSPHATASE 83 U/L (38-126); ANION GAP 9 (5-19); ASPARTATE AMINO TRANSFERASE 18 U/L (17-59); BILIRUBIN,DIRECT 0.1 mg/dL (0.0-0.4); BILIRUBIN,TOTAL 0.9 mg/dL (0.2-1.3); BLOOD UREA NITROGEN 8 mg/dL (7-20); CALCIUM 9.5 mg/dL (8.4-10.2); CARBON DIOXIDE 28 mmol/L (22-30); CHLORIDE 97 mmol/L (98-107); GLUCOSE 147 mg/dL (75-110); POTASSIUM 4.7 mmol/L (3.6-5.0)
--- NOTE | 2020-01-05 11:33 | ER Document Report ---
ED General - General Chief Complaint: Abdominal Pain Stated Complaint: ABDOMINAL PAIN Time Seen by Provider: 01/05/20 11:11 Primary Care Provider: MERVAT,[facility] [Primary Care Provider] - Follow up as needed Notes: Patient is a 59-year-old white male with a history of you were seen today for alcohol-induced pancreatitis. Prior alcoholism who presents the emergency department with a chief complaint of abdominal pain. He states it began about 3 to 4 days ago but yesterday it worsened significantly. He reports this feels exactly like his prior episodes of pancreatitis. He is not had any alcoholic beverages since the beginning of October. He is pending evaluation by gastroenterology through the [facility] but has not seen them yet. He is been seen here for this in the past. He denies any associated nausea or vomiting. No diarrhea. No fevers or chills or night sweats. No prior abdominal surgeries. TRAVEL OUTSIDE OF THE [place] IN LAST 30 DAYS: No - Related Data Allergies/Adverse Reactions: No Known Allergies Allergy (Verified 12/23/19 08:55) Past Medical History - Social History Smoking Status: Current Every Day Smoker Frequency of alcohol use: None Drug Abuse: Marijuana Family History: Reviewed & Not Pertinent, COPD, Malignancy - father - Past Medical History Cardiac Medical History: Reports: Hx Hypertension Denies: Hx Coronary Artery Disease, Hx Hypercholesterolemia, Hx Peripheral Vascular Disease Pulmonary Medical History: Reports: Hx COPD Denies: Hx Asthma Renal/ Medical History: Denies: Hx Peritoneal Dialysis GI Medical History: Reports: Hx Pancreatitis. Denies: Hx Cirrhosis, Hx Hepatitis Psychiatric Medical History: Denies: Hx Depression Infectious Medical History: Denies: Hx Hepatitis Past Surgical History: Reports: Hx Tonsillectomy - Immunizations Hx Diphtheria, Pertussis, Tetanus Vaccination: Yes Review of Systems - Review of Systems Constitutional: denies: Fever EENT: denies: Throat pain Cardiovascular: denies: Chest pain Respiratory: denies: Short of breath Gastrointestinal: Abdominal pain. denies: Diarrhea, Nausea, Vomiting, Constipation Genitourinary: denies: Pain Male Genitourinary: denies: Testicular pain Musculoskeletal: denies: Back pain Skin: denies: Change in color Hematologic/Lymphatic: denies: Easy bruising Neurological/Psychological: denies: Headaches Physical Exam - Vital signs Vitals: Temp Pulse Resp BP Pulse Ox 98.5 F 82 18 127/70 H 100 01/05/20 10:35 01/05/20 10:35 01/05/20 10:35 01/05/20 10:35 01/05/20 10:35 - General General appearance: Appears well, Alert In distress: None - Respiratory Respiratory status: No respiratory distress Chest status: Nontender Breath sounds: Normal Chest palpation: Normal - Cardiovascular Rhythm: Regular Heart sounds: Normal auscultation - Abdominal Inspection: Normal Distension: No distension Bowel sounds: Normal Tenderness: Tender - Left upper quadrant, left lower quadrant and left flank Organomegaly: No organomegaly - Back Back: No: CVA tenderness - Neurological Neuro grossly intact: Yes Cognition: Normal Orientation: AAOx4 - Psychological Associated symptoms: Normal affect, Normal mood - Skin Skin Temperature: Warm Skin Moisture: Dry Skin Color: Normal Course - Re-evaluation Re-evalutation: 01/05/20 14:19 Reevaluation at this time. Patient is resting comfortably in the room. His pain is improved significantly. He received 2 L normal saline. His lipase is elevated over 1999. This is fairly consistent with his presentation of pancreatitis. He does not drink alcohol anymore. His work-up was otherwise largely unremarkable. His abdominal exam is mostly benign. He does have a history of pseudocyst formation and has been referred to GI. He reports that he actually spoke with the gastroenterology office while here in the department and they were connecting him with the office for an appointment. He is aware of the dietary restrictions going forward. He is tolerating oral intake very well. No nausea or vomiting. He has Zofran at home. Will prescribe him a course of [place]. Clear liquid diet for at least the next 24 hours with slow gradual return to brat and then normal. Avoiding discussed foods that may exacerbate pancreatitis. He will see GI as discussed and referred. Counseled him and his family at bedside regarding the importance of outpatient follow-up and advised that they return here or any ER immediately with any new, persistent or worsening symptoms. They verbalized understood and agreed. - Vital Signs Vital signs: Temp Pulse Resp BP Pulse Ox 98.5 F 82 18 127/70 H 100 01/05/20 10:35 01/05/20 10:35 01/05/20 10:35 01/05/20 10:35 01/05/20 10:35 - Laboratory Result Diagrams: 01/05/20 10:52 01/05/20 10:52 Laboratory results interpreted by me: 01/05/20 01/05/20 10:52 10:52 WBC 10.7 H RDW 14.4 H Lymph % (Auto) 9.7 L Absolute Neuts (auto) 8.5 H Seg Neutrophils % 79.9 H Sodium 134.3 L Chloride 97 L Glucose 147 H Lipase 2113.2 H Discharge - Discharge Clinical Impression: Pancreatitis Qualifiers: Chronicity: chronic Pancreatitis type: unspecified pancreatitis type Qualified Code(s): K86.1 - Other chronic pancreatitis Condition: Stable Disposition: HOME, SELF-CARE Instructions: Pancreatitis ([facility]) Additional Instructions: Please report to the professional fee coder office when you are scheduled as we discussed. Utilize pain medications every 6 hours as needed. Please not drive or operate any machinery while taking these medications. Please stick to a clear liquid diet for at least the next 24 hours with slow gradual return to a bland diet. Please return here or any ER immediately with any new, persistent or worsening symptoms. Prescriptions: Hydrocodone/Acetaminophen [[place] 10-325 Tablet] 1 each PO Q6 PRN #12 tablet PRN Reason: Forms: Return to Work [facility] - Follow up as needed
[2020-01-05 12:08] LABS: APPEARANCE,URINE CLEAR; BILIRUBIN,URINE NEGATIVE (NEGATIVE); COLOR,URINE YELLOW; GLUCOSE, URINE NEGATIVE (NEGATIVE); KETONES,URINE NEGATIVE (NEGATIVE); LEUKOCYTE ESTERASE,URINE NEGATIVE (NEGATIVE); NITRITE,URINE NEGATIVE (NEGATIVE); PROTEIN,URINE NEGATIVE (NEGATIVE); URINE SPECIFIC GRAVITY 1.005; UROBILINOGEN,URINE NEGATIVE mg/dL (<2.0)
[2020-01-05] MEDS ORDERED: HYDROMORPHONE HCL INJ/PF 2 MG/ML AMPULE IV ONE (13:14)
[2020-01-05 15:00] VITALS: BP 118/66
== END 2020-01-05 15:00 | disposition home or self-care (01) ==
LOC: ER 10:31
DX: K86.1 Other chronic pancreatitis (principal); R10.9 Unspecified abdominal pain; F17.200 Nicotine dependence, unspecified, uncomplicated; I10 Essential (primary) hypertension; J44.9 Chronic obstructive pulmonary disease, unspecified
CPT/HCPCS: 99284; 96361; 96374; 96375; 36415; 83690; 85025; 80053; 81001; J2270; J1170; J2405; J7030

== ENCOUNTER 2020-01-14 20:04 | Emergency (ER) | payer OTHER ==
[2020-01-14] MEDS ORDERED: RINGERS SOLUTION,LACTATED 1,000 ML IV ONE (22:51)
--- NOTE | 2020-01-14 22:52 | ER Document Report ---
ED Medical Screen (RME) - General Chief Complaint: Abdominal Pain Stated Complaint: ABDOMINAL PAIN Time Seen by Provider: 01/14/20 22:47 Primary Care Provider: MERVAT,ANGELA [Primary Care Provider] - Follow up as needed Mode of Arrival: Ambulatory Information source: Patient Notes: HPI; 59-year-old male past medical history significant for pancreatitis presents to the emergency room with persistent abdominal pain for the past 3 weeks. States this is his fourth visit to the emergency room. Patient gets admitted gets IV fluids and has been discharged home. [facility] Not currently taking any medications for pain. Denies any alcohol. PE: Alert and oriented x3. Mild distress noted. Lungs: Clear to auscultation without rales, rhonchi, wheezes. Heart: Regular rate rhythm without murmurs, rubs, gallops. Unable to do full assessment in triage. I have greeted and performed a rapid initial assessment of this patient. A comprehensive ED assessment and evaluation of the patient, analysis of test results and completion of the medical decision making process will be conducted by additional ED providers. I have specifically instructed the patient or family members with the patient to immediately return to any nursing staff should anything change in the patient's condition or with their chief complaint. TRAVEL OUTSIDE OF THE [place] IN LAST 30 DAYS: No - Related Data Allergies/Adverse Reactions: No Known Allergies Allergy (Verified 12/23/19 08:55) Past Medical History - Past Medical History Cardiac Medical History: Reports: Hx Hypertension Denies: Hx Coronary Artery Disease, Hx Hypercholesterolemia, Hx Peripheral Vascular Disease Pulmonary Medical History: Reports: Hx COPD Denies: Hx Asthma Renal/ Medical History: Denies: Hx Peritoneal Dialysis GI Medical History: Reports: Hx Pancreatitis. Denies: Hx Cirrhosis, Hx Hepatitis Psychiatric Medical History: Denies: Hx Depression Infectious Medical History: Denies: Hx Hepatitis Past Surgical History: Reports: Hx Tonsillectomy - Immunizations Hx Diphtheria, Pertussis, Tetanus Vaccination: Yes Physical Exam - Vital signs Vitals: Temp Pulse Resp BP Pulse Ox 97.5 F 71 20 153/82 H 100 01/14/20 20:29 01/14/20 20:29 01/14/20 20:29 01/14/20 20:29 01/14/20 20:29 Course - Vital Signs Vital signs: Temp Pulse Resp BP Pulse Ox 97.5 F 71 20 153/82 H 100 08/16/20 20:29 01/14/20 20:29 01/14/20 20:29 01/14/20 20:29 01/14/20 20:29 Doctor's Discharge - Discharge [facility]errals: [facility] [[facility] - Follow up as needed
[2020-01-15 00:06] LABS: ABSOLUTE BASOPHILS # (AUTO) 0.1 10^3/uL (0.0-0.2); ABSOLUTE EOSINOPHILS # (AUTO) 0.3 10^3/uL (0.0-0.6); ABSOLUTE MONOCYTES (AUTO) 0.9 10^3/uL (0.1-1.4); ABSOLUTE NEUT (AUTO) 6.1 10^3/uL (1.7-8.2); BASOPHILS % (AUTO) 1.4 % (0-2); EOSINOPHILS % (AUTO) 3.1 % (0-6); HEMATOCRIT 44.3 % (37.9-51.0); LYMPHOCYTES % (AUTO) 21.4 % (13-45); MEAN CORPUSCULAR HEMOGLOBIN 32.1 pg (27.0-33.4); MEAN CORPUSCULAR HGB CONC 33.8 g/dL (32.0-36.0); MEAN CORPUSCULAR VOLUME 95 fl (80-97); MONOCYTES % (AUTO) 9.2 % (3-13); PLATELET COUNT 421 10^3/uL (150-450); RED BLOOD COUNT 4.67 10^6/uL (4.35-5.55); RED CELL DISTRIBUTION WIDTH 14.5 % (11.5-14.0); SEGMENTED NEUTROPHILS % (AUTO) 64.9 % (42-78); TOTAL CELLS COUNTED % (AUTO) 100 %; WHITE BLOOD COUNT 9.4 10^3/uL (4.0-10.5)
[2020-01-15 00:09] LABS: APPEARANCE,URINE CLEAR; BILIRUBIN,URINE NEGATIVE (NEGATIVE); COLOR,URINE STRAW; GLUCOSE, URINE NEGATIVE (NEGATIVE); KETONES,URINE NEGATIVE (NEGATIVE); LEUKOCYTE ESTERASE,URINE NEGATIVE (NEGATIVE); NITRITE,URINE NEGATIVE (NEGATIVE); PROTEIN,URINE NEGATIVE (NEGATIVE); URINE SPECIFIC GRAVITY 1.005; UROBILINOGEN,URINE NEGATIVE mg/dL (<2.0)
[2020-01-15 00:28] LABS: ALBUMIN 4.6 g/dL (3.5-5.0); ALKALINE PHOSPHATASE 89 U/L (38-126); AMYLASE 414 U/L (30-110); ANION GAP 10 (5-19); ASPARTATE AMINO TRANSFERASE 17 U/L (17-59); BILIRUBIN,TOTAL 0.4 mg/dL (0.2-1.3); BLOOD UREA NITROGEN 8 mg/dL (7-20); CALCIUM 9.8 mg/dL (8.4-10.2); CARBON DIOXIDE 27 mmol/L (22-30); CHLORIDE 104 mmol/L (98-107); GLUCOSE 109 mg/dL (75-110); POTASSIUM 4.5 mmol/L (3.6-5.0); TOTAL PROTEIN 8.1 g/dL (6.3-8.2)
[2020-01-15] MEDS ORDERED: NORMAL SALINE 1000 ML 1,000 ML IV ONE (00:50)
[2020-01-15] MEDS ORDERED: HYDROMORPHONE HCL INJ/PF 2 MG/ML AMPULE IV ONE ×2 (00:51→02:43)
[2020-01-15] MEDS ORDERED: ONDANSETRON HCL INJ/PF 4 MG/2 ML SDV IV ONE (00:51)
[2020-01-15] MEDS ORDERED: HYDROCODONE/ACETAMINOPHEN 5-325 MG (6 TAB/ER DISP) PO PRN (02:43)
--- NOTE | 2020-01-15 02:43 | ER Document Report ---
Entered by HARSHAD CLIFTON SCRIBE 01/15/20 0040 Acting as scribe for:EDEN SOSA IV, MD ED GI/ - General Chief Complaint: Abdominal Pain Stated Complaint: ABDOMINAL PAIN Time Seen by Provider: 01/14/20 22:47 [facility]: [facility] [[facility]] - Follow up as needed Mode of Arrival: Ambulatory Notes: This 59 year old male patient with a history of pancreatitis presents to the ED today with complaints of upper abdominal pain for the last x3 weeks, worse tonight. Patient states that the pain is similar to his prior episodes of pancreatitis, but he doesn't know what "set it off" this time. He reports that he had a phone consult with a blow machine tender starch spraying x3 days ago and was told what procedure he needed, but states that that GI specialist advised that he was unable to perform the procedure. Denies nausea or vomiting. TRAVEL OUTSIDE OF THE [place] IN LAST 30 DAYS: No - Related Data Allergies/Adverse Reactions: No Known Allergies Allergy (Verified 12/23/19 08:55) Past Medical History - General Information source: Patient - Social History Smoking Status: Current Every Day Smoker Cigarette use (# per day): Yes Chew tobacco use (# tins/day): No Smoking Education Provided: No Frequency of alcohol use: None Drug Abuse: Marijuana Lives with: Spouse/Significant other Family History: Reviewed & Not Pertinent, COPD, Malignancy - father Patient has suicidal ideation: No Patient has homicidal ideation: No - Past Medical History Cardiac Medical History: Reports: Hx Hypertension Pulmonary Medical History: Reports: Hx COPD GI Medical History: Reports: Hx Pancreatitis Past Surgical History: Reports: Hx Tonsillectomy - Immunizations Hx Diphtheria, Pertussis, Tetanus Vaccination: Yes Review of Systems - Review of Systems Constitutional: No symptoms reported, Diaphoresis Cardiovascular: No symptoms reported Respiratory: No symptoms reported Gastrointestinal: See HPI, Abdominal pain. denies: Nausea, Vomiting Genitourinary: No symptoms reported Male Genitourinary: No symptoms reported Musculoskeletal: No symptoms reported Skin: No symptoms reported Hematologic/Lymphatic: No symptoms reported Neurological/Psychological: No symptoms reported -: Yes All other systems reviewed and negative Physical Exam - Vital signs Vitals: Temp Pulse Resp BP Pulse Ox 97.5 F 71 20 153/82 H 100 01/14/20 20:29 01/14/20 20:29 01/14/20 20:29 01/14/20 20:29 01/14/20 20:29 - General General appearance: Alert In distress: None - HEENT Head: Normocephalic, Atraumatic Eyes: Normal Pupils: PERRL - Respiratory Respiratory status: No respiratory distress Chest status: Nontender Breath sounds: Normal Chest palpation: Normal - Cardiovascular Rhythm: Regular Heart sounds: Normal auscultation Murmur: No Friction rub: No Gallop: None auscultated - Abdominal Inspection: Normal Distension: No distension Tenderness: Tender - Tenderness to palpation of the epigastric region and bilateral upper quadrants, Other - Abdomen soft Organomegaly: No organomegaly - Back Back: Normal, Nontender - Extremities General upper extremity: Normal inspection General lower extremity: Normal inspection - Neurological Neuro grossly intact: Yes Orientation: AAOx4 Aditya Coma Scale Eye Opening: Spontaneous Goodrich Coma Scale Verbal: Oriented Goodrich Coma Scale Motor: Obeys Commands Goodrich Coma Scale Total: 15 - Psychological Associated symptoms: Normal affect, Normal mood - Skin Skin Temperature: Warm Skin Moisture: Dry Skin Color: Normal Course - Re-evaluation Re-evalutation: 01/15/20 02:44 Patient states his pain is now down to a 2. Results of ED MSE discussed with patient. All questions were answered prior to discharge. Emergency signs and symptoms, reasons to return to the emergency department discussed with patient. - Vital Signs Vital signs: Temp Pulse Resp BP Pulse Ox 97.5 F 71 20 153/82 H 100 01/14/20 20:29 01/14/20 20:29 01/14/20 20:29 01/14/20 20:29 01/14/20 20:29 - Laboratory Result Diagrams: 01/14/20 23:45 01/14/20 23:45 Laboratory results interpreted by me: 01/14/20 01/14/20 23:45 23:45 RDW 14.5 H Amylase 414 H Lipase 2193.2 H Discharge - Discharge Clinical Impression: Recurrent pancreatitis Condition: Stable Disposition: HOME, SELF-CARE Additional Instructions: Return to the Emergency Department without delay if any worse. HOME CARE INSTRUCTIONS & INFORMATION: Thank you for choosing us for your medical needs. We hope you're satisfied with the care you received. After you leave, you must properly care for your problem and, at the same time, observe its progress. Any condition can change. Some illnesses can change rapidly over hours or days. If your condition worsens, return to the Emergency Department or see your physician promptly. ABOUT YOUR X-RAYS AND EKG'S: If you had an EKG or X-rays taken, they have been read by the Emergency Physician. The X-rays and EKG's will also be read by a Radiologist or Drop Wirer within 24 hours. If discrepancies are noted, you will be notified by telephone. Please be certain the ED has a correct telephone number & address where you can be reached. Also, realize that some fractures or abnormalities do not show up on initial X-rays. If your symptoms continue, see your physician. ABOUT YOUR LABORATORY TEST: If you had laboratory tests, the results have been reviewed by the Emergency Physician. Some test results (for example cultures) may not be available for several days. You will be contacted if any test result shows you need additional treatment. Please be certain the ED has a correct telephone number and address where you can be reached. ABOUT YOUR MEDICATIONS: You will receive instructions on how to take your medicine on the prescription label you receive. Additional information may be provided by the Pharmacy. If you have questions afterwards, call the ED for clarification or further instructions. Some prescribed medications may cause drowsiness. Do not perform tasks such as driving a car or operating machinery without consulting your Pharmacist. If you feel you need a refill of pain medication, your condition will need re-evaluation. Please do not call for a refill of any medication. ABOUT YOUR SIGNATURE: Signature of this document acknowledges to followin. Understanding that you received emergency treatment and that you may be released before al medical problems are known or treated. Please be certain the ED has a correct phone number & address where you can be reached. 2. Acknowledgement that you will arrange for follow-up care as recommended. 3. Authorization for the Emergency Physician to provide information to your follow-up Physician in order to maximize your care. AT ANY TIME, IF YOUR SYMPTOMS CHANGE SIGNIFICANTLY OR WORSEN OR YOU DEVELOP NEW SYMPTOMS, RETURN TO THE EMERGENCY DEPARTMENT IMMEDIATELY FOR RE-EVALUATION. OUR GOAL IS TO PROVIDE EXCELLENT MEDICAL CARE! WE HOPE THAT WE HAVE MET YOUR EXPECTATIONS DURING YOUR EMERGENCY DEPARTMENT VISIT AND THAT YOU FEEL YOU HAVE RECEIVED EXCELLENT CARE! Pancreatitis Pancreatitis is an inflammation of the pancreas, an organ at the back of your abdomen. The pancreas produces insulin and enzymes that digest your food. Pancreatitis can be caused by gallstones in the bile duct, by alcohol or viruses, or by excess fat or calcium in the blood stream. Occasionally, pancreatitis occurs when a stomach ulcer palacios through into the pancreas. We try to find the cause of pancreatitis, but some tests can't be done until the p ancreas heals. The usual symptoms of pancreatitis are pain in the pit of the stomach that goes straight through to the back, vomiting, and low-grade fever. Severe cases require hospital admission, but many patients with mild pancreatitis do well at home. You will probably need medicine for pain and for vomiting. Sometimes we prescribe medicine to decrease stomach acid secretion and to decrease flow of pancreatic juices. Start with a diet of clear liquids (soda pop, juices). When the pain is decreasing, you can add some simple starches (potato, toast, applesauce). Avoid proteins and fats until you are completely painfree. When you're better, your doctor may suggest treatment to prevent future pancreatitis (such as gallbladder removal). Avoid alcohol forever. Get immedia te treatment for any future episodes. Contact your doctor at once or return here if you have increasing pain, shortness of breath, general swelling, increasing size of the abdomen, continued vomiting, muscle spasms, or other new symptoms. Prescriptions: Hydrocodone/Acetaminophen [Henderson 5-325 mg Tablet] 1 tab PO Q6HP PRN #12 tablet PRN Reason: pain [facility]errals: [facility] [Primary [facility]] - Follow up as needed I personally performed the services described in the documentation, reviewed and edited the documentation which was dictated to the scribe in my presence, and it accurately records my words and actions.
[2020-01-15 03:03] VITALS: BP 129/75
--- NOTE | 2020-01-15 08:18 | EKG REPORT ---
SEVERITY:- BORDERLINE ECG - SINUS RHYTHM LEFT AXIS DEVIATION BORDERLINE T ABNORMALITIES, ANT-LAT LEADS : Confirmed by: Lizzy Patino 15-Jan-2020 08:18:14
== END 2020-01-15 03:03 | disposition home or self-care (01) ==
LOC: ER 20:04
DX: K86.1 Other chronic pancreatitis (principal); R10.10 Upper abdominal pain, unspecified; F17.210 Nicotine dependence, cigarettes, uncomplicated; I10 Essential (primary) hypertension; J44.9 Chronic obstructive pulmonary disease, unspecified
CPT/HCPCS: 93005; 96376; 99284; 96361; 96374; 96375; 36415; 80307; 82150; 83690; 85025; 80053; 81001; 93010; J1170; J2405; J7030; J7120

== ENCOUNTER 2020-03-09 07:54 | Emergency (ER) | payer OTHER ==
[2020-03-09] MEDS ORDERED: NORMAL SALINE 1000 ML 1,000 ML IV ONE (08:32)
[2020-03-09] MEDS ORDERED: MORPHINE SULFATE 10 MG/ML INJ IV ONE ×2 (08:32→10:36)
[2020-03-09] MEDS ORDERED: ONDANSETRON HCL INJ/PF 4 MG/2 ML SDV IV ONE (08:32)
--- NOTE | 2020-03-09 08:40 | ER Document Report ---
ED General - General Chief Complaint: Abdominal Pain Stated Complaint: ABDOMINAL PAIN Time Seen by Provider: 03/09/20 08:09 Primary Care Provider: KYRIE MCKENNA MD [ACTIVE STAFF] - Follow up as needed SOCORRO ABURTO DO [NO LOCAL MD] - Follow up as needed [facility] - 03/18/20 (as already scheduled ) TRAVEL OUTSIDE OF THE [place] 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 Patient reports pain is 5 out of 5, constant and feels "like it is on fire". Denies any nausea vomiting, diarrhea, last sulaiman l movement was yesterday and was normal, denies any melena. Patient denies any chest pain shortness of breath, fever chills, numbness or tingling down arms or legs, bowel or bladder dysfunction, saddle anesthesia or testicular pain. Patient denies being exposed to anybody with COVID, personally being diagnosed with COVID, denies any medication changes, recent travel or any changes in his diet. Patient states that he has flareups of his chronic pancreatitis, states he was trying a bland diet, has been avoiding any beef or fried foods. Reports he does have follow-up with a senior media buyer at the [facility] on March 18, states he did follow-up with them a month ago and they have just been monitoring him, he states that his senior media buyer at the [facility] is not able to do anything due to the fact he does have 2 cyst on his pancreas. Patient states last time that he ingested alcohol was in October 2019, his chronic pancreatitis has been brought on due to alcoholism. Patient states that he did have a cyst reviewed a month ago and he cannot remember if it was interventional radiology or by his senior media buyer but he understood the appointment to be "a wait and see and keep monitoring" as a management for his chronic pancreatitis from his medical care. MEDICATIONS: I agree with the patient medications as charted by the RN. ALLERGIES: I agree with the allergies as charted by the RN. PAST MEDICAL HISTORY/PAST SURGICAL HISTORY: Reviewed and agree as charted by RN. SOCIAL HISTORY: Reviewed and agree as charted by RN. FAMILY HISTORY: No significant familial comorbid conditions directly related to patient complaint EXAM: Reviewed vital signs as charted by RN. REVIEW OF SYSTEMS:reviewed vital signs by RN CONSTITUTIONAL : Denies fever, chills, or sweats. Denies recent illness. EENT: Denies eye, ear, throat, or mouth pain or symptoms. Denies nasal or sinus congestion or discharge. Denies throat, tongue, or mouth swelling or difficulty swallowing. CARDIOVASCULAR: Denies chest pain. Denies palpitations or racing or irregular heart beat. Denies ankle edema. RESPIRATORY: Denies cough, cold, or chest congestion. Denies shortness of breath, difficulty breathing, or wheezing. GASTROINTESTINAL: Reports abdominal pain. Denies distention. Denies nausea, vomiting, or diarrhea. Denies blood in vomitus, stools, or per rectum. Denies black, tarry stools. Denies constipation. GENITOURINARY: Denies difficulty urinating, painful urination, burning, frequency, blood in urine, or discharge. MUSCULOSKELETAL: Denies back or neck pain or stiffness. Denies joint pain or swelling. SKIN: Denies rash, lesions or sores. HEMATOLOGIC : Denies easy bruising or bleeding. LYMPHATIC: Denies swollen, enlarged glands. NEUROLOGICAL: Denies confusion or altered mental status. Denies passing out or loss of consciousness. Denies dizziness or lightheadedness. Denies headache. Denies weakness or paralysis or loss of use of either side. Denies problems with gait or speech. Denies sensory loss, numbness, or tingling. Denies seizures. PSYCHIATRIC: Denies anxiety or stress. Denies depression, suicidal ideation, or homicidal ideation. ALL OTHER SYSTEMS REVIEWED AND NEGATIVE. Dictation was performed using [employer] voice recognition software PHYSICAL EXAMINATION: GENERAL: Well-appearing, well-nourished and in no acute distress. HEAD: Atraumatic, normocephalic. EYES: Pupils equal round and reactive to light, extraocular movements intact, sclera anicteric, conjunctiva are normal. ENT: Nares patent, oropharynx clear without exudates. Moist mucous membranes. NECK: Normal range of motion, supple without lymphadenopathy LUNGS: Breath sounds clear to auscultation bilaterally and equal. No wheezes rales or rhonchi. HEART: Regular rate and rhythm without murmurs ABDOMEN: Soft, right lower quadrant left lower quadrant tenderness on palpation, negative McBurney's point. Noted some rebound pain on right lower quadrant to LLQ with palpation. nondistended abdomen. No guarding, no rebound. No masses appreciated. No CVA tenderness appreciated bilaterally Musculoskeletal: Normal range of motion, no pitting or edema. No cyanosis. NEUROLOGICAL: Cranial nerves grossly intact. Normal speech, normal gait. Normal sensory, motor exams PSYCH: Normal mood, normal affect. SKIN: Warm, Dry, normal turgor, no rashes or lesions noted. - Related Data Allergies/Adverse Reactions: No Known Allergies Allergy (Verified 03/09/20 08:07) Past Medical History - General Information source: Patient - Social History Smoking Status: Current Every Day Smoker Chew tobacco use (# tins/day): No Frequency of alcohol use: None Drug Abuse: Marijuana Family History: Reviewed & Not Pertinent, COPD, Malignancy - father - Past Medical History Cardiac Medical History: Reports: Hx Hypertension Denies: Hx Coronary Artery Disease, Hx Hypercholesterolemia, Hx Peripheral Vascular Disease Pulmonary Medical History: Reports: Hx COPD Denies: Hx Asthma Renal/ Medical History: Denies: Hx Peritoneal Dialysis GI Medical History: Reports: Hx Pancreatitis. Denies: Hx Cirrhosis, Hx Hepatitis Psychiatric Medical History: Denies: Hx Depression Infectious Medical History: Denies: Hx Hepatitis Past Surgical History: Reports: Hx Tonsillectomy - Immunizations Hx Diphtheria, Pertussis, Tetanus Vaccination: Yes Physical Exam - Vital signs Vitals: Temp Pulse Resp BP Pulse Ox 98.2 F 89 16 128/66 H 99 03/09/20 07:57 03/09/20 07:57 03/09/20 07:57 03/09/20 07:57 03/09/20 07:57 Course - Re-evaluation Re-evalutation: 03/09/20 08:37 Afebrile vital stable no distress. nurses notes reviewed. IV fluids and pain medication given as well as Zofran. CBC with a slight leukocytosis but no anemia anemia, normal clotting factors, CMP negative for hepatic or renal dysfunction, lipase normal. CT abdomen pelvis with IV contrast shows an increase in the size of the pancreatic pseudocyst, states approximately 4 cm, previously was 2.8, in addition there is peripancreatic fluid extending to the left pericholecystic gutter and pararenal space, ultrasound of right upper quadrant shows small amount of gallbladder sludge. Consulted with Dr. Kyrie Mckenna, surgeon, regarding if he feels that the pseudocyst need to be drained since they are larger in size. Dr. Mckenna reviewed the CT findings and stated that typically pseudocyst do not need to be drained unless there is 6 or 7 cm. Patient appears nontoxic, is well managed with pain medication and states he was not being as strict with his diet as patient has been. Dr. Mckenna denies any reason for patient to need any surgical intervention at this time. Patient is aware that he does need to follow-up with his senior media buyer as well as surgery for drainage of a pseudocyst that does not need to happen emergently today but sometime in the near future within the next couple of months, depending the size. We will send patient home with a sixpack of [place], advised to follow a clear liquid diet, follow-up with his senior media buyer as well as his primary care provider and a consult with a surgeon outpatient. After performing a Medical Screening Examination, I estimate there is LOW risk for ACUTE APPENDICITIS, BOWEL OBSTRUCTION, ACUTE CHOLECYSTITIS, PERFORATED DIVERTICULITIS, INCARCERATED HERNIA, PANCREATITIS, TESTICULAR TORSION or PERFORATED ULCER, thus I consider the discharge disposition reasonable. Also, there is no evidence or peritonitis, sepsis, or toxicity. I have reevaluated this patient multiple times and no significant life threatening changes are noted. The patient and I have discussed the diagnosis and risks, and we agree with discharging home with close follow-up with the understanding that symptoms and presentations can change. We also discussed returning to the Emergency Department immediately if new or worsening symptoms occur. We have discussed the symptoms which are most concerning (e.g., bloody stool, fever, changing or worsening pain, intractable vomiting - standard verbal up date) that necessitate immediate return. 03/09/20 17:14 - Vital Signs Vital signs: Temp Pulse Resp BP Pulse Ox 98.2 F 87 16 116/65 95 03/09/20 07:57 03/09/20 13:16 03/09/20 13:16 03/09/20 13:16 03/09/20 13:16 - Laboratory Result Diagrams: 03/09/20 08:15 03/09/20 08:15 Laboratory results interpreted by me: 03/09/20 08:15 WBC 12.7 H RBC 4.21 L RDW 15.5 H Lymph % (Auto) 7.9 L Absolute Neuts (auto) 10.2 H Seg Neutrophils % 80.3 H Discharge - Discharge Clinical Impression: Pancreatic pseudocyst, Abdominal pain Disposition: HOME, SELF-CARE Instructions: Abdominal Pain ([facility]) Additional Instructions: Your labs today were essentially normal. We did a CT of your abdomen pelvis, your pseudocysts have increased from the last time, they are not large enough to drain yet, please follow-up with the surgeon for further evaluation and evaluation, please go to your already scheduled gastroenterology appointment at the [facility] on March 18. Please follow a bland diet after doing clear liquids for a week. Please avoid any alcohol consumption. Please do not drive, drink or operate heavy machinery while taking narcotics as it can cause sedation or impairment of cognitive function. Please return to the emergency room if you experience any worsening pain, vomiting, fever with abdominal pain, chest pain shortness of breath etc. Return immediately for any new or worsening symptoms. Follow up with primary care provider, call tomorrow to make followup appointment. Referrals: KYRIE MCKENNA MD [ACTIVE STAFF] - Follow up as needed SOCORRO ABURTO DO [NO LOCAL MD] - [facility] needed [facility] - 03/18/20 (as already scheduled )
[2020-03-09 08:48] LABS: ABSOLUTE BASOPHILS # (AUTO) 0.1 10^3/uL (0.0-0.2); ABSOLUTE EOSINOPHILS # (AUTO) 0.1 10^3/uL (0.0-0.6); ABSOLUTE MONOCYTES (AUTO) 1.3 10^3/uL (0.1-1.4); ABSOLUTE NEUT (AUTO) 10.2 10^3/uL (1.7-8.2); BASOPHILS % (AUTO) 0.7 % (0-2); HEMATOCRIT 39.8 % (37.9-51.0); HEMOGLOBIN 13.8 g/dL (13.5-17.0); LYMPHOCYTES % (AUTO) 7.9 % (13-45); MEAN CORPUSCULAR HEMOGLOBIN 32.8 pg (27.0-33.4); MEAN CORPUSCULAR HGB CONC 34.7 g/dL (32.0-36.0); MEAN CORPUSCULAR VOLUME 95 fl (80-97); MONOCYTES % (AUTO) 10.1 % (3-13); PLATELET COUNT 255 10^3/uL (150-450); RED BLOOD COUNT 4.21 10^6/uL (4.35-5.55); RED CELL DISTRIBUTION WIDTH 15.5 % (11.5-14.0); SEGMENTED NEUTROPHILS % (AUTO) 80.3 % (42-78); TOTAL CELLS COUNTED % (AUTO) 100 %; WHITE BLOOD COUNT 12.7 10^3/uL (4.0-10.5)
[2020-03-09 09:03] LABS: ALBUMIN 4.4 g/dL (3.5-5.0); ALKALINE PHOSPHATASE 77 U/L (38-126); ANION GAP 10 (5-19); ASPARTATE AMINO TRANSFERASE 17 U/L (17-59); BILIRUBIN,DIRECT 0.2 mg/dL (0.0-0.4); BILIRUBIN,TOTAL 0.6 mg/dL (0.2-1.3); BLOOD UREA NITROGEN 10 mg/dL (7-20); CALCIUM 9.4 mg/dL (8.4-10.2); CARBON DIOXIDE 25 mmol/L (22-30); CHLORIDE 102 mmol/L (98-107); GLUCOSE 105 mg/dL (75-110); POTASSIUM 4.2 mmol/L (3.6-5.0); TOTAL PROTEIN 7.4 g/dL (6.3-8.2)
[2020-03-09 09:05] LABS: APPEARANCE,URINE CLEAR; BILIRUBIN,URINE NEGATIVE (NEGATIVE); COLOR,URINE YELLOW; GLUCOSE, URINE NEGATIVE (NEGATIVE); KETONES,URINE NEGATIVE (NEGATIVE); LEUKOCYTE ESTERASE,URINE NEGATIVE (NEGATIVE); NITRITE,URINE NEGATIVE (NEGATIVE); PROTEIN,URINE NEGATIVE (NEGATIVE); URINE SPECIFIC GRAVITY 1.013; UROBILINOGEN,URINE NEGATIVE mg/dL (<2.0)
[2020-03-09 09:07] LABS: INTERNATIONAL RATION (INR) 0.98; PROTHROMBIN TIME 13.2 SEC (11.4-15.4)
[2020-03-09 09:08] LABS: PARTIAL THROMBOPLASTIN TIME 28.7 SEC (23.5-35.8)
--- NOTE | 2020-03-09 10:41 | RADIOLOGY REPORT (SQ) ---
EXAM DESCRIPTION: CT ABD/PELVIS WITH IV ONLY IMAGES COMPLETED DATE/TIME: 03/09/2020 10:18 am REASON FOR STUDY: RLQ/LLQ abd pain,worsening chronic pancreatitis. COMPARISON: 11/06/2019, 08/07/2019 TECHNIQUE: CT scan of the abdomen and pelvis performed using helical scanning technique with dynamic intravenous contrast injection. No oral contrast. Images reviewed with lung, soft tissue, and bone windows. Reconstructed coronal and sagittal MPR images reviewed. Delayed images for evaluation of the urinary system also acquired. All images stored on PACS. All CT scanners at this facility use dose modulation, iterative reconstruction, and/or weight based d osing when appropriate to reduce radiation dose to as low as reasonably achievable (ALARA). [facility]: Dose Right [facility]: CareDose [facility]: Dose Right [facility]: Teradose 4D [facility]: [employer] CONTRAST TYPE AND DOSE: contrast/concentration: Isovue 350.00 mmol/ml; Total Contrast Delivered: 88. 0 ml; Total Saline Delivered: 70.0 ml RENAL FUNCTION: GFR > 60. RADIATION DOSE: CT Rad equipment meets quality standard of care and radiation dose reduction techniq ues were employed. CTDIvol: 4.8 - 5.2 mGy. DLP: 504 mGy-cm.. LIMITATIONS: None. FINDINGS: LOWER CHEST: Minimal opacity at the left lung base. LIVER: Normal size. No masses. No dilated ducts. SPLEEN: Normal size. No focal lesions. PANCREAS: Well circumscribed pancreatic pseudo cysts in the body of the pancreas. Increase in size o elena previous and now measures 4 cm. In addition there is now fluid along the pancreatic body and mona l extending into the left pericolic bladder are and posterior discrete from the pararenal space. GALLBLADDER: No identified stones by CT criteria. No inflammatory changes to suggest cholecystitis. ADRENAL GLANDS: No significant masses or asymmetry. RIGHT KIDNEY AND URETER: No solid masses. No significant calcifications. No hydronephrosis or hyd roureter. LEFT KIDNEY AND URETER: No solid masses. No significant calcifications. No hydronephrosis or hydr oureter. AORTA AND VESSELS: No aneurysm. No dissection. Renal arteries, SMA, celiac without stenosis. RETROPERITONEUM: No retroperitoneal adenopathy, hemorrhage or masses. BOWEL AND PERITONEAL CAVITY: No masses or inflammatory changes. No free fluid or peritoneal masses. APPENDIX: Normal. PELVIS: No mass. No free fluid. Normal bladder. ABDOMINAL WALL: No masses. No hernias. BONES: No significant or acute findings. OTHER: No other significant finding. IMPRESSION: Increase in size of the pancreatic pseudocyst. In addition there is peripancreatic flui d extending into the left pericholecystic gutter and pararenal space. TECHNICAL DOCUMENTATION: JOB ID: [id number] Quality ID # [id number]: Final reports with documentation of one or more dose reduction techniques (e.g., Au tomated exposure control, adjustment of the mA and/or kV according to patient size, use of iterative reconstruction technique) 2010 [employer]- All Rights Reserved Reading location - IP/workstation name: [email or web address]
--- NOTE | 2020-03-09 12:34 | RADIOLOGY REPORT (SQ) ---
EXAM DESCRIPTION: U/S ABDOMEN LTD W/DOPPLER IMAGES COMPLETED DATE/TIME: 03/09/2020 12:10 pm REASON FOR STUDY: fluid in pericolic bladder seen on CT, abd pain COMPARISON: Earlier CT TECHNIQUE: Dynamic and static grayscale images acquired of the abdomen and recorded on PACS. Dicko anna selected color Doppler and spectral images recorded. LIMITATIONS: Bowel gas. FINDINGS: PANCREAS: Bowel gas obscures the body and tail region of the pancreas. LIVER: No masses. Echotexture normal. LIVER VASCULATURE: Normal directional flow of the main portal vein and hepatic veins. GALLBLADDER: No shadowing stones. Small amount of endoluminal gallbladder sludge. Normal wall thick ness. ULTRASOUND-DETECTED HERNANDEZ'S SIGN: Negative. INTRAHEPATIC DUCTS AND COMMON DUCT: CBD and intrahepatic ducts normal caliber. No filling defects. INFERIOR VENA CAVA: Normal flow. AORTA: No aneurysm identified. RIGHT KIDNEY: Normal size. Normal echogenicity. No solid or suspicious masses. No hydronephros is. No calcifications. PERITONEAL AND RIGHT PLEURAL SPACE: Trace ascites. No pleural effusions. OTHER: No other significant findings. IMPRESSION: Trace ascites.Bowel gas obscures the body and tail region of the pancreas. Small amount of gallbladder sludge. TECHNICAL DOCUMENTATION: JOB ID: [id number] [place]-72 2010 [employer]- All Rights Reserved Reading location - IP/workstation name: [email or web address]
[2020-03-09 13:17] VITALS: BP 116/65
[2020-03-09] MEDS ORDERED: HYDROCODONE/ACETAMINOPHEN 5-325 MG (6 TAB/ER DISP) PO PRN (13:41)
== END 2020-03-09 14:16 | disposition home or self-care (01) ==
LOC: ER 07:54
DX: K86.3 Pseudocyst of pancreas (principal); K82.8 Other specified diseases of gallbladder; K86.0 Alcohol-induced chronic pancreatitis; F10.20 Alcohol dependence, uncomplicated; R18.8 Other ascites; R10.31 Right lower quadrant pain; R10.32 Left lower quadrant pain; R10.813 Right lower quadrant abdominal tenderness; R10.814 Left lower quadrant abdominal tenderness; J44.9 Chronic obstructive pulmonary disease, unspecified; F17.200 Nicotine dependence, unspecified, uncomplicated; F12.10 Cannabis abuse, uncomplicated; I10 Essential (primary) hypertension; D72.829 Elevated white blood cell count, unspecified
CPT/HCPCS: 99285; 36415; 83690; 85025; 85610; 85730; 80053; 81001; 76705; 93976; 74177; J2270; J2405; J7030